=== PATIENT | male | born 1940 | race Caucasian/White ===

== ENCOUNTER 2025-05-29 20:32 | Emergency (ER) | payer MEDICARE, SELFPAY ==
[2025-05-29 20:34] VITALS: BP 158/78; PULSE 98; RESP 15; TEMP 36.7; O2SAT 98
--- NOTE | 2025-05-29 21:59 | EX.ED.DYSGE1 ---
HPI History of Present Illness Chief Complaint: Constipation Detail of Chief Complaint: No bowel movement for 3 to 4 days Informant: patient and family Onset/Context/Timing Onset: Days Context: Sudden Onset Timing: Continuous Quality: Unable to move his bowels for the past 3 to 4 days Location: Complains of rectal pain Current Severity: Mild Maximum Severity: Moderate Worsened by: When he attempts to push out the stool Relieved by: Nothing Associated Symptoms Associated Symptoms: No other symptoms Narrative Narrative: Patient is an 85-year-old male. He presents with rectal pain and unable to have a bowel movement for the past 3 to 4 days. He has no history of partial or small bowel obstruction. He is status post cholecystectomy. He is still passing gas. He denies urologic symptoms. He denies fever or chills. He denies weight loss. He denies night sweats. He does not feel bloated. He has had no nausea or vomiting. Prior similar symptoms: Yes Recent Illness/Hospitalization: No PFSH PFSH Medical History (Updated 05/29/25 @ 22:[address] Buddy Armijo MD) Hyperlipemia BPH (benign prostatic hyperplasia) Allergy/AdvReac Type Severity Reaction Status Date / Time Penicillins Allergy Severe UNKNOWN Verified 05/29/25 20:35 Surgical History (Updated 05/29/25 @ 22:13 by Karen Travis) Hx of cholecystectomy History of open heart surgery Social History (Updated 05/29/25 @ 22:[address] Buddy Armijo MD) Smoking Status: Never smoker substance use type: does not use ROS ROS ED Constitutional Constitutional ED: Denies chills, fever(s), subjective, sweats or weight loss Cardiovascular Cardiovascular: Denies chest pain or palpitations Respiratory/Chest Respiratory/Chest: Denies cough or dyspnea Gastrointestinal Gastrointestinal: Reports constipation and other Details: Rectal pain ; Denies abdominal pain, diarrhea, melena, nausea or vomiting Genitourinary Genitourinary ED: Denies dysuria, hematuria or urinary frequency Musculoskeletal Musculoskeletal: Denies arthralgias or myalgias Integumentary Denies rash Neurologic Neurologic: Reports weakness; Denies paresthesias Psychiatric Psychiatric: Denies anxiety or depression Hematologic/Lymphatic Hematologic/Lymphatic: Reports systems reviewed and no addt'l complaints, except as documented EXAM Physical Exam Const Vital Signs: 05/29/25 20:34 Temperature 98.1 F Temperature Source Oral Pulse Rate 98 Respiratory Rate 15 Blood Pressure 158/78 H Blood Pressure Mean 104 Pulse Ox 98 Positive well nourished and well developed General Appearance ED: well developed and NAD HEENT Reports moist mucous membranes HEENT Narrative: Head is atraumatic and normocephalic. Ears normal. Eyes PERRL and EOMs intact bilaterally Neck no lymphadenopathy, supple and no JVD Resp normal respiratory effort and clear to auscultation bilaterally Cardio regular rate, regular rhythm, S1 normal heart sound, S2 normal heart sound and no murmurs GI non-tender and no masses; Negative for non-distended or hepatosplenomegaly GI Narrative: No fissures, fistulas or hemorrhoids on rectal exam. Patient has a fecal impaction. Attempt to digitally disimpact was unsuccessful because the stool is very soft. Auscultation: hypoactive bowel sounds Palpation: soft Extremity normal to inspection Neuro oriented x3 and CN's II-XII intact bilaterally Sensorium / Orientation: alert Psych Mood & Affect: depressed Skin no rashes or lesions noted, no wounds and No skin turgor normal General Skin Exam: Negative for jaundice MDM MDM MDM Narrative Medical decision making narrative: Since digital disimpaction was unsuccessful. Soapsuds enema was ordered. Nurse informed he cannot hold the soapsuds enema. After discussion with the other physician was on-call recommended fleets enema. Fleets enema was ordered. Awaiting to see if patient has results. Treatment and Re-Evaluation :: Patient had minimal results after fleets enema. Will discharge to home with instructions to help evacuate the stool from his rectum. Discharge Plan Triage Chief Complaint: Constipation ED Provider: Buddy Armijo Dx/Rx/DC Orders Clinical Impression: Fecal impaction of rectum, Elevated blood pressure reading Instructions: ED Constipation (Adult) Primary Care Provider: Sid Swanson Referrals: Sid Swanson MD [Primary Care Provider] - 1-2 Days if not improving Activity Restrictions/Additional Instructions: 1. In the morning drink 10 ounces of mag citrate. 2. 4 hours after drinking the mag citrate 1 capful of MiraLAX and a full glass of beverage of choice. 3. Repeat 1 capful of MiraLAX every 1-2 hours until you start to have results. Once you have results discontinue the MiraLAX Print Language: Micronesian Disposition Disposition: Home, Self Care
[2025-05-29 22:33] VITALS: BP 130/74; PULSE 75; RESP 18; TEMP 36.6; O2SAT 99
== END 2025-05-29 22:42 | disposition home or self-care (01) ==
PROVIDERS: Emergency Provider Emergency Medicine; PCP Internal Medicine; Visit Provider Emergency Medicine
DX: K56.41 Fecal impaction (principal); R03.0 Elevated blood-pressure reading, without diagnosis of hypertension
CPT/HCPCS: 99284

== ENCOUNTER 2025-06-03 19:29 | Emergency (ER) | payer MEDICARE, SELFPAY ==
[2025-06-03 19:31] VITALS: BP 148/68; PULSE 64; RESP 18; TEMP 36.3; O2SAT 98
[2025-06-03 19:50] VITALS: BMI 24.6
--- NOTE | 2025-06-03 20:19 | RAD_ITS ---
PROCEDURE: CHEST 1 VIEW (PORTABLE) 06/03/2025 REASON FOR EXAM: GENERALIZED WEAKNESS TECHNIQUE: Frontal view of the chest. COMPARISON: None. FINDINGS: Hardware: Intact sternal wires. EKG wires project over the chest. Heart: Heart size within normal limits. Lungs: Clear and expanded. Bones: No aggressive process identified. Other: RAD/Chest 1 View (Portable) IMPRESSION: No acute process identified. Reading Location[facility]
--- NOTE | 2025-06-03 20:20 | EKG12_ITS ---
Test Reason : WEAKNESS Blood Pressure : */* mmHG Vent. Rate : 51 BPM Atrial Rate : * BPM P-R Int : * ms QRS Dur : 88 ms QT Int : 452 ms P-R-T Axes : * -29 38 degrees QTcB Int : 416 ms Atrial fibrillation with slow ventricular response Septal infarct , age undetermined Abnormal ECG Confirmed by CARLOS RAI, BRAYAN ([id number]), editor sound RONY MACHADO ([id number]) on 06/05/2025 1:04:29 PM Referred By: Confirmed By: BRAYAN GONZALEZ MD
[2025-06-03] MEDS: 0.9% Normal Saline (500mL Bag) 500 ML 1000 ML IV (20:30)
[2025-06-03 20:32] VITALS: BP 161/68; PULSE 54; RESP 16; TEMP 35.5; O2SAT 99
--- NOTE | 2025-06-03 20:33 | EX.ED.DYSGE1 ---
HPI History of Present Illness Chief Complaint: Weakness Narrative Narrative: 85-year-old male past medical history of possible Parkinson's disease, previous hyponatremia presents with generalized weakness which caused him to become weak and collapsed today. He denies loss of consciousness. He was brought in by his son who helps relay history that he was seen in the emergency department on Thursday for fecal impaction. They tried magnesium citrate the following day and he had copious amounts of stool with bowel movements. While that has improved, today he felt very weak, almost dehydrated, which caused him to collapse and lowered himself to the ground. While he may have fallen, he did not sustain any injuries. He did not hit his head or have loss of consciousness. No prodromal symptoms. States he just feels generally weak. No recent fevers or chills, no nausea or vomiting, no cough or shortness of breath, no dysuria or hematuria. [facility] Medical History Hyperlipemia BPH (benign prostatic hyperplasia) Home Medications ?Medication ?Instructions ?Recorded ?Last Taken ?Type apixaban 5 mg tablet (Eliquis) 5 mg PO BID 06/03/25 Unknown History aspirin 81 mg tablet,delayed 81 mg PO DAILY 06/03/25 Unknown History release (Adult Aspirin Regimen) atorvastatin 40 mg tablet 40 mg PO DAILY 06/03/25 Unknown History finasteride 5 mg tablet 5 mg PO DAILY 06/03/25 Unknown History linaclotide 145 mcg capsule 145 mcg PO DAILY 06/03/25 Unknown History (Linzess) pantoprazole 40 mg tablet,delayed 40 mg PO DAILY 06/03/25 Unknown History release terazosin 10 mg capsule 10 mg PO DAILY 06/03/25 Unknown History Allergy/AdvReac Type Severity Reaction Status Date / Time Penicillins Allergy Severe UNKNOWN Verified 06/03/25 19:31 Surgical History Hx of cholecystectomy History of open heart surgery Social History Smoking Status: Never smoker substance use type: does not use ROS ROS ED ROS Narrative Review of systems positive for generalized weakness. No fevers or chills, no cough, no dysuria no dysuria or hematuria, no syncope. No exacerbating or alleviating factors. EXAM Physical Exam Narrative Exam Narrative: Afebrile. Vital signs noted. HEENT: Normocephalic. Atraumatic. PERRL, EOMI. Neck soft and supple. Slightly tacky mucous membranes. Cardiovascular: Regular rate and rhythm. No murmurs, rubs, or gallops appreciated. Respiratory: No tachypnea. Lungs clear to auscultation bilaterally. Gastrointestinal: Abdomen soft, nontender, with normoactive bowel sounds. No rebound or guarding. Neurological: Awake. Alert. Nonfocal, nonlateralizing. Musculoskeletal: No pedal edema. Full range of motion extremities. Const Vital Signs: 06/03/25 19:31 06/03/25 19:49 06/03/25 20:32 Temperature 97.3 F L 95.9 F L Temperature Source Temporal Temporal Pulse Rate 64 54 L Respiratory Rate 18 16 Respiratory Effort Normal Non-Labored Respiratory Pattern Normal Blood Pressure 148/68 H 161/68 H Blood Pressure Mean 94 99 Pulse Ox 98 99 Oxygen Delivery Method Room Air MDM MDM MDM Narrative Medical decision making narrative: The differential diagnosis includes but not limited to dehydration/other electrolyte abnormality including hyponatremia versus urinary tract infection or infectious cause including pneumonia. However history and physical does not support pneumonia because is not having fever or cough or shortness of breath. His son was concerned about him starting a parkinsonian medication such as levo carbidopa that was supposed to be written for him this weekend. I discussed with him that the neurologist or physician working up that diagnosis should be the 1 to write the prescription for that. It could be related to his generalized weakness as well. EKG was obtained and interpreted by myself independently as atrial fibrillation with slow ventricular response at 51 bpm. I reviewed his laboratory work and he has normal white count of 5.5 with hemoglobin stable at 11.4, platelet count 210. Electrolyte panel is noted to have BUN of 22 with creatinine 1.18 with glucose appropriately elevated at 116 and normal anion gap of 13. Urinalysis negative for infection with 0-5 WBCs and 0 bacteria. I do not feel he needs antibiotics. He had negative ketones so no evidence of dehydration. Chest x-ray interpreted by myself independently shows no pneumonia or pneumothorax. I reviewed the radiology report which confirms my independent interpretation and states there is no acute process identified. Upon repeat examination, patient is resting comfortably. He is getting ready to stand up to urinate. I discussed the possibility of observation for placement in rehab/detention facility, but patient and his son declined. I feel he can be discharged to follow-up and possibly start the Parkinson's medication as his son had previously discussed. Return instructions to the emergency department were reviewed. Disposition is discharged home in stable condition. History & Record Review Discussion w/independent historian: Patient and Family (Son) Additional record(s) reviewed:: Prior ED visit (Seen for elevated blood pressure reading. Noncontributory to current chief complaint.) Lab Data Attestation: I reviewed the patient's lab results. Labs: Laboratory Results - last 24 hr 06/03/25 06/03/25 19:38 20:25 WBC 5.5 RBC 3.88 L Hgb 11.4 L Hct 34.0 L MCV 87.6 MCH 29.4 MCHC 33.5 RDW Std Deviation 42.5 RDW Coeff of Ernesto 13.2 Plt Count 210 MPV 9.8 Immature Gran % (Auto) 0.400 Neut % (Auto) 53.3 Lymph % (Auto) 32.5 Rains % (Auto) 11.5 H Eos % (Auto) 1.8 Baso % (Auto) 0.5 Absolute Neuts (auto) 2.9 Absolute Lymphs (auto) 1.79 Nucleated RBC % 0 Sodium 134 Potassium 4.7 Chloride 99 Carbon Dioxide 22.3 Anion Gap 13 BUN 22 H Creatinine 1.18 Estim Creat Clear Calc 41.23 L Est GFR (MDRD) Non-Af 60 BUN/Creatinine Ratio 18.5 Glucose 116 H Calcium 9.5 Urine Color Straw Urine Clarity Clear Urine pH 7.0 Ur Specific [place] 1.010 Urine Protein 15 H Urine Glucose (UA) Normal Urine Ketones Negative Urine Occult Blood 150 H Urine Nitrite Negative Urine Bilirubin Negative Urine Urobilinogen Normal Ur Leukocyte Esterase Negative Urine RBC 0-5 SEEN Urine WBC 0-5 SEEN Ur Squamous Epith Cells 0-5 SEEN Urine Bacteria 0 SEEN Urine Mucus 0 SEEN Radiography Diagnostic Testing: Clinical Impression(s) from Imaging Studies Chest X-Ray 06/03/25 20:19 IMPRESSION: No acute process identified. Reading [facility] Discharge Plan Triage Chief Complaint: Weakness ED Provider: Clinton Blanco Dx/Rx/DC Orders Clinical Impression: Fall, Generalized weakness Instructions: ED Fall with Uncertain Cause, ED Weakness Uncertain Cause Prescriptions: No Action atorvastatin 40 mg tablet 40 mg PO DAILY finasteride 5 mg tablet 5 mg PO DAILY Linzess 145 mcg capsule 145 mcg PO DAILY Eliquis 5 mg tablet 5 mg PO BID pantoprazole 40 mg tablet,delayed release (DR/EC) 40 mg PO DAILY terazosin 10 mg capsule 10 mg PO DAILY aspirin [Adult Aspirin Regimen] 81 mg tablet,delayed release (DR/EC) 81 mg PO DAILY Primary Care Provider: Romeo Pollock Referrals: Sid Swanson MD [Non-Staff] - As soon as possible Activity Restrictions/Additional Instructions: Follow-up with Dr. Pollock as soon as possible. You may need to be started on the medication for Parkinson's disease. Return with new or worsening symptoms. Print Language: Togolese Disposition Disposition: Home, Self Care
[2025-06-03 20:34] LABS: Mucous, Urine 0 SEEN /hpf (<or=2+)
--- NOTE | 2025-06-03 20:39 | PCA ---
NO OLD EKG
[2025-06-03 20:40] LABS: Hematocrit 34.0 % (40-54); Hemoglobin 11.4 g/dL (13.0-16.5); Immature Granulocytes Count 0.020 X10^3/uL (0.0-0.0); Mean Corp Hgb Conc 33.5 g/dL (32-36); Mean Corpuscular Volume 87.6 fL (80-94); Mean Platelet Vol. 9.8 fl (6.2-12.0); NRBC Flagged by Analyzer 0 % (0-5); Platelet Count 210 K/mm3 (150-450); RBC Distribution Width CV 13.2 % (11.6-14.6); RBC Distribution Width SD 42.5 fl (35.1-43.9); Red Blood Count 3.88 M/mm3 (4.6-6.2); White Blood Count 5.5 K/mm3 (4.4-11.0)
--- OUTSIDE RECORDS SUMMARY | 2025-06-03 20:42 | XMS RPT_ITS | CCD ---
Author Organization [facility] Care Team Providers Care Solderer Furnace Name Role Phone ELVIE HASKINS Unavailable Unavailable DUMONT, HÉCTOR A Unavailable Unavailable ELVIE HASKINS Unavailable Unavailable ELVIE HASKINS Unavailable Unavailable Unavailable Primary Care Provider Sue Armijo MD, Dr. Goodwin Emergency Provider Dr. Jerilyn Swanson MD Primary Care Provider [phone] JERILYN SWANSON MD Consulting Unavailable KATELYNN LEMONS MD Admitting Unavailable KATELYNN LEMONS MD Primary Care Unavailable KATELYNN LEMONS MD Attending Unavailable PROVIDER, UNKNOWN Consulting Unavailable PROVIDER, UNKNOWN Consulting Unavailable PROVIDER, UNKNOWN Consulting Unavailable JERILYN SWANSON MD Consulting Unavailable January CERTIFIED MEDICAL CODER Primary Care Unavailable January CERTIFIED MEDICAL CODER Admitting Unavailable January CERTIFIED MEDICAL CODER Attending Unavailable PROVIDER, UNKNOWN Consulting Unavailable PROVIDER, UNKNOWN Consulting Unavailable PROVIDER, UNKNOWN Consulting Unavailable JERILYN SWANSON MD Consulting Unavailable JERILYN SWANSON MD Admitting Unavailable JERILYN SWANSON MD Attending Unavailable JERILYN SWANSON MD Primary Care Unavailable PROVIDER, UNKNOWN Consulting Unavailable PROVIDER, UNKNOWN Consulting Unavailable PROVIDER, UNKNOWN Consulting Unavailable JERILYN SWANSON MD Consulting Unavailable JERILYN SWANSON MD Primary Care Unavailable JERILYN SWANSON MD Admitting Unavailable JERILYN SWANSON MD Attending Unavailable PROVIDER, UNKNOWN Consulting Unavailable PROVIDER, UNKNOWN Consulting Unavailable PROVIDER, UNKNOWN Consulting Unavailable JERILYN SWANSON MD Consulting Unavailable JERILYN SWANSON MD Primary Care Unavailable JERILYN SWANSON MD Admitting Unavailable JERILYN SWANSON MD Attending Unavailable PROVIDER, UNKNOWN Consulting Unavailable PROVIDER, UNKNOWN Consulting Unavailable PROVIDER, UNKNOWN Consulting Unavailable JERILYN SWANSON MD Consulting Unavailable JERILYN SWANSON MD Primary Care Unavailable JERILYN SWANSON MD Admitting Unavailable JERILYN SWANSON MD Referring Unavailable JERILYN SWANSON MD Attending Unavailable PROVIDER, UNKNOWN Consulting Unavailable PROVIDER, UNKNOWN Consulting Unavailable PROVIDER, UNKNOWN Consulting Unavailable JERILYN SWANSON MD Consulting Unavailable LLOYD TOLEDO MD Primary Care Unavailable LLOYD TOLEDO MD Admitting Unavailable JERILYN SWANSON MD Referring Unavailable LLOYD TOLEDO MD Attending Unavailable PROVIDER, UNKNOWN Consulting Unavailable PROVIDER, UNKNOWN Consulting Unavailable PROVIDER, UNKNOWN Consulting Unavailable MARY NULL Consulting Unavailable EDYTA ROCA Attending Unavailable EDYTA ROCA Admitting Unavailable EDYTA ROCA Primary Care Unavailable MARY NULL Referring Unavailable PROVIDER, UNKNOWN Consulting Unavailable LINUS, JANUARY CERTIFIED MEDICAL CODER Referring Unavailable LINUSJanuary CERTIFIED MEDICAL CODER Consulting Unavailable TREVOR SAMANIEGO JR Primary Care Unavailable TREVOR SAMANIEGO JR Admitting Unavailable TREVOR SAMANIEGO JR Attending Unavailable PROVIDER, UNKNOWN Consulting Unavailable PROVIDER, UNKNOWN Consulting Unavailable JERILYN SWANSON MD Consulting Unavailable JERILYN SWANSON MD Referring Unavailable TREVOR SAMANIEGO JR Primary Care Unavailable TREVOR SAMANIEGO JR Admitting Unavailable TREVOR SAMANIEGO JR Attending Unavailable PROVIDER, UNKNOWN Consulting Unavailable PROVIDER, UNKNOWN Consulting Unavailable PROVIDER, UNKNOWN Consulting Unavailable Aleksander Buddy Attending Unavailable Jerilyn Swanson Primary Care Unavailable Allergies Allergy Classification Reported Allergen(s) Allergy Type Date of Onset Reaction(s) Facility (1 source) Amoxicillin Drug Allergy 7 [facility] Work Phone: (1 source) Penicillins Propensity to adverse reactions 7 [facility] (1 source) Penicillins Allergy to substance 5 UNKNOWN [facility] (1 source) Amoxicillin Drug Allergy [facility] Repository (1 source) Penicillins Drug allergy (disorder) [facility] Repository (1 source) Penicillins Drug allergy (disorder) 5 [facility] Repository Medications Current Medications Medication Drug Class(es) Dates Sig (Normalized) Sig (Original) aspirin 81 mg delayed release oral tablet (1 source) Platelet Aggregation Inhibitor, Nonsteroidal Anti-inflammatory Drug Start: 09-21-2007 aspirin(ADULT LOW DOSE ASPIRIN 81 MG TAB, DELAYED RELEASE) Take one(1) tablet daily. 0 09/21/2007 Active clopidogrel 75 mg oral tablet (1 source) P2Y12 Platelet Inhibitor Start: 09-21-2007 clopidogrel bisulfate(PLAVIX 75 MG TAB) Take one(1) tablet daily. 0 09/21/2007 Active docusate calcium 240 mg oral capsule (1 source) Start: 08-26-2010 take 1 capsule by mouth at bedtime docusate calcium 240 mg ORAL capsule 1 capsule po at bedtime 0 08/26/2010 Active finasteride 5 mg oral tablet (1 source) 5-alpha Reductase Inhibitor Start: 09-29-2023 finasteride (PROSCAR) 5 mg tablet Indications: BPH with obstruction/lower urinary tract symptoms take 1 tablet daily 90 tablet 3 09/29/2023 Active metoprolol tartrate 50 mg oral tablet (1 source) beta-Adrenergic Sly Start: 08-26-2010 metoprolol tartrate 50 mg ORAL tablet 1 tablet two timws daily po 0 08/26/2010 Active rosuvastatin calcium 40 mg oral tablet (1 source) HMG-CoA Reductase Inhibitor Start: 08-26-2010 take 1 tablet by mouth once daily rosuvastatin (CRESTOR) 40 mg ORAL tablet 1 tablet daily 0 08/26/2010 Active terazosin 10 mg oral capsule (1 source) alpha-Adrenergic Sly Start: 10-06-2012 take 1 capsule by mouth once daily Terazosin HCl (HYTRIN) 10 mg capsule Take 1 capsule by mouth once daily. 90 capsule 3 10/06/2012 Active Problems Active Problems Problem Classification Problem Date Documented Date Episodic/Chronic Acute and unspecified renal failure (1 source) Acute kidney failure, unspecified; Translations: [Acute kidney failure, unspecified] Onset: 03-25-2025 Episodic Cardiac dysrhythmias (1 source) Unspecified atrial fibrillation; Translations: [Unspecified atrial fibrillation] Onset: 06-29-2024 Chronic Chronic kidney disease (1 source) Chronic kidney disease; Translations: [Chronic kidney disease, stage 3a] Onset: 12-21-2024 Congestive heart failure; nonhypertensive (1 source) Unspecified diastolic (congestive) heart failure; Translations: [Unspecified diastolic (congestive) heart failure] Onset: 03-25-2025 Chronic Coronary atherosclerosis and other heart disease (1 source) 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; Translations: [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] Onset: 06-29-2024 Chronic Diabetes mellitus with complications (1 source) Type 2 diabetes mellitus with diabetic chronic kidney disease; Translations: [Type 2 diabetes mellitus with diabetic chronic kidney disease] Onset: 12-21-2024 Chronic Disorders of lipid metabolism (1 source) Hyperlipidemia, unspecified; Translations: [Hyperlipidemia, unspecified] Onset: 12-21-2024 Chronic Essential hypertension (1 source) Essential (primary) hypertension; Translations: [Essential (primary) hypertension] Onset: 12-21-2024 Chronic Fluid and electrolyte disorders (2 sources) Hypo-osmolality and hyponatremia; Translations: [Hypo-osmolality and hyponatremia] Onset: 06-29-2024 Episodic Hyperplasia of prostate (2 sources) Benign prostatic hypertrophy with outflow obstruction; Translations: [Benign prostatic hyperplasia with lower urinary tract symptoms] Onset: 09-21-2007 02-07-2025 Chronic Intestinal obstruction without hernia (1 source) Fecal impaction; Translations: [Fecal impaction of rectum] 05-29-2025 Episodic Other circulatory disease (1 source) Elevated blood pressure; Translations: [Elevated blood-pressure reading, without diagnosis of hypertension] 05-29-2025 Episodic Other diseases of bladder and urethra (1 source) Bladder neck obstruction; Translations: [Bladder-neck obstruction] Onset: 09-21-2007 02-07-2025 Chronic Past or Other Problems Problem Classification Problem Date Documented Da te Episodic/Chronic Allergic reactions (1 source) Allergy status to penicillin; Translations: [Allergy status to penicillin] Onset: 06-29-2024 Episodic Coronary atherosclerosis and other heart disease (2 sources) Presence of aortocoronary bypass graft; Translations: [Presence of coronary angioplasty implant and graft] Onset: 06-29-2024 Episodic Malaise and fatigue (3 sources) Weakness; Translations: [Weakness] Onset: 06-29-2024 Episodic Other aftercare (1 source) 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; Translations: [senior care (current) use of anticoagulants] Onset: 06-29-2024 Episodic Other lower respiratory disease (1 source) Shortness of breath; Translations: [Shortness of breath] Onset: 06-29-2024 Episodic Other screening for suspected conditions (not mental disorders or infectious disease) (1 source) Raised prostate specific antigen; Translations: [Elevated prostate specific antigen [PSA]] Onset: 09-21-2007 02-07-2025 Episodic Residual codes; unclassified (1 source) Do not resuscitate; Translations: [Do not resuscitate] Onset: 06-29-2024 Episodic Results Test Name Value Interpretation Reference Range Facility ED MED ADMINISTRATION DETAIL on 05-29-2025 ED MED ADMINISTRATION DETAIL [employer] - STEPHANI ELIAS : 1940, , Medication Administration Record [address] [address] [id number] 05/29/2025 Patient: STEPHANI ELIAS Sex: Male : 1940 Age: 85y Medication Ordered Medication Administration Date/Time 1 of 1 Normal [facility] ED NURSES CLINICAL NOTEon ED NURSES CLINICAL NOTE Nurse Narrative - STEPHANI ELIAS, : 1940, , Nurse Clinical Narrative [address] [address] [id number] 05/29/2025 19:38:00 Patient: STEPHANI ELIAS Sex: Male : 1940 Age: 85y Disposition: Left W/O Being Seen Disposition Decision Time: 19:55 05/29/2025 Departure Time: 19:55 05/29/2025 DISPOSITION / DISCHARGE Departure time: 19:55 05/29/2025. Condition at departure: unchanged and stable. The patient left the Emergency Department before triage and without being seen by a physician. The patient appears to be alert. The patient notified staff prior to leaving the department. The patient left the Emergency Department in a wheelchair. -- 20:55 05/29/25 EDT Clinton Grimes R.N. (Electronically signed by Elisabeth Alvarez R.N. 05/29/25 23:32:22 EDT) Generated by [facility] 1 of 1 Normal [facility] ED ORDER SHEET (CPOE ONLY)on 05-29-2025 ED ORDER SHEET (CPOE ONLY) Order Sheet - STEPHANI ELIAS, : 1940, , Order Sheet [address] [address] [id number] 05/29/2025 Patient: STEPHANI ELIAS Sex: Male : 1940 Age: 85y MEDICATION/IV/DRIP/FLU ID ORDERS Order Description Priority Entered Acknowledged Completed LAB ORDERS Order Description Priority Entered Acknowledged Collected Completed DIAGNOSTIC STUDY ORDERS Order Description Priority Entered Acknowledged Completed STAFF ORDERS Order Description Priority Entered Acknowledged Collected Completed 1 of 1 Normal [facility] ED SUPER BILL 05-29-2025 ED [facility] - STEPHANI ELIAS, : 1940, , [address] [address] [id number] 05/29/2025 Patient: STEPHANI ELIAS Sex: Male : 1940 Age: 85y Item Professional Category Description Facility Code Code Quantity Fee Total Grand Total $0.00 1 of 1 [facility] ED VISIT SUMMARYon ED VISIT SUMMARY Visit Overview - STEPHANI ELIAS : 1940, , Visit [address] [address] [id number] 05/29/2025 Patient: STEPHANI ELIAS Sex: Male : 1940 Age: 85y 05/29/2025 11:32 PM EDT ED Arrival:19:38 05/29/2025 EDT Status: Recent Travel: Language:eng Adv Directive: Isolation Status: Ethnicity:N Fall Risk: Infectious Disease Exposure: Measurements: Self-Harm Status: Sepsis Screen: Chief Complaint: ALLERGIES HOME MEDICATIONS PAST MEDICAL HISTORY / PROBLEMS PAST SURGICAL HISTORY SOCIAL HISTORY ED COURSE MEDICATIONS GIVEN IN EMERGENCY DEPARTMENT IV SITE INFORMATION 1 of 2 Visit Overview - STEPHANI ELIAS : 1940, , INTAKE OUTPUT REASSESMENT (most recent) VITAL SIGNS PROCEDURES NURSING INTERVENTIONS LABS / STUDIES CLINICAL IMPRESSION 2 of 2 Normal [facility] ED VITALS FLOW SHEETon 05-29 ED VITALS FLOW SHEET Vitals - STEPHANI ELIAS : 1940, , Vital Sign Flow Sheet [address] [place] [address] [id number] 05/29/2025 Patient: STEPHANI ELIAS Sex: Male : 1940 Age: 85y 1 of 1 Normal [facility] Emergency Department Summary on 05-29-2025 Emergency Department Summary [facility] Medical Records Department [address] [facility] [address] Emergency Department Summary 05/29/25 MR#: [id number] Acct: [id number] Name: STEPHANI ELIAS Rep #: [id number] : 1940 85 From: Buddy Armijo MD PCP: Dr. Jerilyn Swanson MD Status:REG ER Location: ED HPI History of Present Illness Chief Complaint: Constipation Detail of Chief Complaint: No bowel movement for 3 to 4 days Informant: patient and family Onset/Context/Timing Onset: Days Context: Sudden Onset Timing: Continuous Quality: Unable to move his bowels for the past 3 to 4 days Location: Complains of rectal pain Current Severity: Mild Maximum Severity: Moderate Worsened by: When he attempts to push out the stool Relieved by: Nothing Associated Symptoms Associated Symptoms: No other symptoms Narrative Narrative: Patient is an 85-year-old male. He presents with rectal pain and unable to have a bowel movement for the past 3 to 4 days. He has no history of partial or small bowel obstruction. He is status post cholecystectomy. He is still passing gas. He denies urologic symptoms. He denies fever or chills. He denies weight loss. He denies night sweats. He does not feel bloated. He has had no nausea or vomiting. Prior similar symptoms: Yes Recent Illness/Hospitalizatio n: No PFSH COUNTS INCLUDE 234 BEDS AT THE [facility] Medical History (Updated 05/29/25 @ 22:[address] Buddy Armijo MD) Hyperlipemia BPH (benign prostatic hyperplasia) Allergy/AdvReac Type Severity Reaction Status Date / Time Penicillins Allergy Severe UNKNOWN Verified 05/29/25 20:35 Surgical History (Updated 05/29/25 @ 22:13 by Karen Travis) Hx of cholecystectomy History of open heart surgery Social History (Updated 05/29/25 @ 22:[address] Buddy Armijo MD) Smoking Status: Never smoker substance use type: does not use ROS ROS ED Constitutional Constitutional ED: Denies chills, fever(s), subjective, sweats or weight loss Cardiovascular Cardiovascular: Denies chest pain or palpitations Respiratory/Chest Respiratory/Chest: Denies cough or dyspnea Gastrointestinal Gastrointestinal: Reports constipation and other Details: Rectal pain ; Denies abdominal pain, diarrhea, melena, nausea or vomiting Genitourinary Genitourinary ED: Denies dysuria, hematuria or urinary frequency Musculoskeletal Musculoskeletal: Denies arthralgias or myalgias Integumentary Denies rash Neurologic Neurologic: Reports weakness; Denies paresthesias Psychiatric Psychiatric: Denies anxiety or depression Hematologic/Lymphatic Hematologic/Lymphatic: Reports systems reviewed and no addt'l complaints, except as documented EXAM Physical Exam Const Vital Signs: 05/29/25 20:34 Temperature 98.1 F Temperature Source Oral Pulse Rate 98 Respiratory Rate 15 Blood Pressure 158/78 H Blood Pressure Mean 104 Pulse Ox 98 Positive well nourished and well developed General Appearance ED: well developed and NAD HEENT Reports moist mucous membranes HEENT Narrative: Head is atraumatic and normocephalic. Ears normal. Eyes PERRL and EOMs intact bilaterally Neck no lymphadenopathy, supple and no JVD Resp normal respiratory effort and clear to auscultation bilaterally Cardio regular rate, regular rhythm, S1 normal heart sound, S2 normal heart sound and no murmurs GI non-tender and no masses; Negative for non-distended or hepatosplenomegaly GI Narrative: No fissures, fistulas or hemorrhoids on rectal exam. Patient has a fecal impaction. Attempt to digitally disimpact was unsuccessful because the stool is very soft. Auscultation: hypoactive bowel sounds Palpation: soft Extremity normal to inspection Neuro oriented x3 and CN's II-XII intact bilaterally Sensorium / Orientation: alert Psych Mood Affect: depressed Skin no rashes or lesions noted, no wounds and No skin turgor normal General Skin Exam: Negative for jaundice MDM MDM MDM Narrative Medical decision making narrative: Since digital disimpaction was unsuccessful. Soapsuds enema was ordered. Nurse informed he cannot hold the soapsuds enema. After discussion with the other physician was on-call recommended fleets enema. Fleets enema was ordered. Awaiting to see if patient has results. Treatment and Re-Evaluation :: Patient had minimal results after fleets enema. Will discharge to home with instructions to help evacuate the stool from his rectum. Discharge Plan Triage Chief Complaint: Constipation ED Provider: Buddy Armijo Dx/Rx/DC Orders Clinical Impression: Fecal impaction of rectum, Elevated blood pressure reading Instructions: ED Constipation (Adult) Primary Care Provider: Jerilyn Swanson Referrals: Jerilyn Swanson MD [Primary Care Provider] - 1-2 Days if not improving Activity Restrictions/Additiona l Instructions: 1. In (more content not included)... 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 Medication Administration Record [address] [address] [id number] 04/21/2025 Patient: STEPHANI ELIAS Sex: Male : 1940 Age: 85y MEASUREMENTS: Wt: 74.8 kg, Ht/Layo: 67.0 in, BMI: 25.84 ALLERGIES: Amoxicillin, Penicillins Medication Ordered Medication Administration Date/Time of Normal [facility] ED NURSES CLINICAL NOTEon ED NURSES CLINICAL NOTE Nurse Narrative Nurse Clinical Narrative [address] [address] [id number] 04/21/2025 11:51:00 Patient: STEPHANI ELIAS Sex: Male : 1940 Age: 85y Disposition: Discharge to Home Disposition Decision Time: 14:19 04/21/2025 Departure Time: 14:22 04/21/2025 TRIAGE Arrived by EMS. Historian: (patient). Primary physician (Kiki). Triage time: 11:52 04/21/2025. Acuity: LEVEL 2. Chief Complaint: SINGLE SYNCOPAL EPISODE. Unknown when patient was last known well. Witnessed: Event was witnessed. The patient has had a headache. ( took 1 SL nitro prior to syncopal episode). Patient is on anticoagulation (blood thinner) therapy: includes eliquis. -- 12:04/21/25 EDT Javan Stewart R.N. 12:04/21/25. BP: 120/65 MAP: 83. HR: 60. RR: 16. O2 saturation: 96% Temperature: 97.4 F. Pain level now 0/10. -- 12:04/21/25 EDT Javan Stewart R.N. 12:04/21/25. SEPSIS SCREEN: NEGATIVE. SIRS criteria negative. No possible sources of infection. -- 12:04/21/25 RAJNIT Javan Stewart R.N. Measurements: 12:04/21/25 Wt: 74.8 kg, Ht/Layo: 67.0 in, BMI: 25.84 -- 12:04/21/25 EDT Javan Stewart R.N. Medications: aspirin 81 mg tablet: 81 mg once a day . -- 12:00 04/21/25 RAJNIT Javan Stewart R.N. 1 of 4 Nurse Narrative atorvastatin 40 mg tablet: 40 mg once a day . -- 12:04/21/25 RAJNIT Javan Stewart R.N. finasteride 5 mg tablet: 5 mg once a day . -- 12:04/21/25 RAJINT Javan Stewart R.N. lisinopriL 5 mg tablet: 5 mg once a day . -- 12:04/21/25 RAJNIT Javan Stewart R.N. pantoprazole 40 mg tablet,delayed release: 40 mg once a day . -- 12:04/21/25 RAJNIT Javan Stewart R.N. terazosin 10 mg capsule: 10 mg once a day . -- 12:04/21/25 RAJNIT Javan Stewart R.N. Stool Softener 100 mg capsule: 100 mg once a day as needed for constipation. -- 12:04/21/25 RAJNIT Javan Stewart R.N. Eliquis 5 mg tablet: 1 tablet twice a day. -- 12:03 04/21/25 IGNACIO Stewart R.N. Allergies: Penicillins -- 11:57 04/21/25 IGNACIO Stewart R.N. Amoxicillin -- 11:57 04/21/25 IGNACIO Stewart R.N. Problems: GERD -- 11:58 04/21/25 IGNACIO Stewart R.N. Hypercholesterolemia -- 11:58 04/21/25 IGNACIO Stewart R.N. Hypertension -- 11:58 04/21/25 IGNACIO Stewart R.N. Parkinson's Disease -- 11:04/21/25 IGNACIO Stewart R.N. Atrial Fibrillation -- 11:04/21/25 IGNACIO Stewart R.N. Prostate Disease -- 11:58 04/21/25 IGNACIO Stewart R.N. Surgeries: Cholecystectomy -- 11:04/21/25 IGNACIO Stewart R.N. Cataract Surgery -- 11:04/21/25 IGNACIO Stewart R.N. Coronary Artery Bypass Graft. (2 separate surgeries.) -- 11:04/21/25 IGNACIO Stewart R.N. History 11:52 04/21/25. SOCIAL HX: Never smoker. No alcohol use or drug use. The patient has not traveled outside the [place] Infectious disease exposure: No infectious disease exposure. ABUSE ASSESSMENT: The patient answered yes to the question(s) Do you feel safe in your home? and no to the question(s) Are you afraid to go home?. SELF HARM ASSESSMENT: Self harm assessment was performed. The patient answered no to the 2 of 4 Nurse Narrative question(s) Have you recently felt down, depressed, or hopeless? and Do you have thoughts of harming or killing yourself?. FALL RISK ASSESSMENT: Fall risk assessment completed. Fall interventions initiated. Side rails up x2. Bed in low position. Brakes on. Patient identified as a fall risk by ID band. Family at bedside. Call light in reach of patient. -- 12:02 04/21/25 IGNACIO Stewart R.N. Interventions 11:52 04/21/25. To room. -- 12:02 04/21/25 EDT Javan Stewart R.N. 12:04 04/21/25. Advanced care plan discussed with family. Patient has advanced directive. (DNR per son). -- 12:04 04/21/25 EDT Javan Stewart R.N. PHYSICAL ASSESSMENT 12:11 04/21/25. To room via wheelchair. GENERAL / NEURO / PSYCH: Appears in no acute distress. Alert. The patient is disoriented to time. Speech within normal limits. HEENT: No facial asymmetry noted. Pupils equal, round and reactive to light. RESPIRATORY: Breath sounds within normal limits. Respirations not labored. CVS: Cardiac rhythm: atrial fibrillation. Capillary refill less than 2 seconds. GI / : Abdomen soft and nontender. SKIN: Skin is warm and dry. -- 12:11 04/21/25 EDT Gustavo Blackwell R.N. NURSING PROGRESS NOTES 12:00 04/21/25. Site #1 started in the right forearm with an 18g angiocath with aseptic technique and good blood return; 1 attempt. Blood drawn: rainbow set tube(s). Labeled in the presence of the patient and sent to the lab. Saline lock flushed with 10 mL saline. -- 12:04/21/25 RAJNIT Gustavo Blackwell R.N. 12:04/21/25. 12-LEAD EKG: EKG time: (11:55 04/21/2025). 12-Lead EKG was performed by a technology training associate and shown to the ED physician (11:55 04/21/2025). -- 12:04/21/25 EDT Javan Stewart R.N. 12:04/21/25. Two patien (more content not included)... Normal [facility] ED ORDER SHEET (CPOE ONLY)on 05-05-2025 ED ORDER SHEET (CPOE ONLY) Order Sheet Order Sheet [address] [place] [address] [id number] 04/21/2025 Patient: STEPHANI ELIAS Sex: Male : 1940 Age: 85y MEASUREMENTS: Wt: 74.8 kg, Ht/Layo: 67.0 in, BMI: 25.84 ALLERGIES: Amoxicillin, Penicillins MEDICATION/IV/DRIP/FLU ID ORDERS Order Description Priority Entered Acknowledged Completed LAB ORDERS Order Description Priority Entered Acknowledged Collected Completed CBC w Diff Stat Stat 12:02 04/21/2025 12:09 04/21/2025 12:09 04/21/2025 Gustavo Causey, Alexx. Gustavo Blackwell, RMaulikN. D.O. Troponin-I Protocol Stat 12:02 04/21/2025 12:09 04/21/2025 12:09 04/21/2025 (STAT 1hr) (Sched: q1h Gustavo Causey, R.Jose. Gustavo Blackwell, R.N. X2); Stat 1 of 2 D.O. Troponin-I Protocol Stat 12:02 04/21/2025 12:09 04/21/2025 (STAT 1hr) (Sched: q1h Gustavo Causey, R.N. X2); Stat 2 of 2 D.O. EKG - ED Stat Stat 12:02 04/21/2025 12:09 04/21/2025 12:09 04/21/2025 Gustavo Causey, R.N. Gustavo Blackwell, R.N. 1 of 3 Order Sheet D.O. BNP Stat Stat 12:02 04/21/2025 12:09 04/21/2025 12:09 04/21/2025 Gustavo Causey, Chinyere.Jose. Gustavo Blackwell, R.N. D.O. DIAGNOSTIC STUDY ORDERS Order Description Priority Entered Acknowledged Completed Chest 1V Stat Stat 12:02 04/21/2025 12:09 12:09 Trevor Samaniego D.O. 04/21/2025 04/21/2025 Gustavo Wallace, Chinyere.N. R.N. Reason for Study: syncope CT Brain wo Cont Stat Stat 12:18 04/21/2025 12:20 13:50 Trevor Samaniego D.O. 04/21/2025 04/21/2025 Gustavo Wallace, MaryN. R.N. Reason for Study: Head Injury CT C-Spine wo Cont Stat Stat 12:18 04/21/2025 12:20 13:50 Trevor Samaniego D.O. 04/21/2025 04/21/2025 Gustavo Wallace, R.N. R.N. Reason for Study: Trauma/Injury STAFF ORDERS Order Description Priority Entered Acknowledged Collected Completed Obtain Old EKG 12:02 04/21/2025 12:08 04/21/2025 Javan Causey R.N. D.O. 2 of 3 Order Sheet [Electronically signed by Trevor Samaniego D.O. (05/05/2025 07:09 EDT)] 3 of 3 Normal [facility] ED PHYSICIAN CLINICAL REPORT on 05-05-2025 ED PHYSICIAN CLINICAL REPORT Narrative Physician Clinical Narrative [address] [place] [address] [phone] 04/21/2025 11:51:00 Patient: STEPHANI ELIAS Sex: Male : 1940 Age: 85y Disposition: Discharge to Home Disposition Decision Time: 14:19 04/21/2025 Departure Time: 14:22 04/21/2025 Measurements Wt: 74.8 kg, Ht/Layo: 67.0 in, BMI: 25.84 Initial Vital Sign Measured Time BP MAP HR RR O2Sat ETCO2 Temp Pain GCS RTS 12:02 04/21/2025 59 96% Time Seen: 12:00 04/21/2025. Arrived- By ambulance. Historian- patient. HISTORY OF PRESENT ILLNESS Chief Complaint: SINGLE SYNCOPAL EPISODE. This occurred just prior to arrival. The patient had preceding symptoms of light-headedness and chest pain. The patient collapsed. Currently the patient feels normal. Similar symptoms previously. None. Recent medical care: Not recently seen/assessed. REVIEW OF SYSTEMS NEUROLOGICAL: No headache. CVS: The patient has had chest pain. GI: No abdominal pain, vomiting or diarrhea. CONSTITUTIONAL: No fever. THROAT: No sore throat. : No difficulty with urination. SKIN: No skin rash. 1 of 10 Narrative PAST HISTORY See nurses notes. Atrial Fibrillation GERD Hypercholesterolemia Hypertension Parkinson's Disease Prostate Disease Surgeries: Cataract Surgery Cholecystectomy Coronary Artery Bypass Graft: (2 separate surgeries.) Medications: aspirin 81 mg tablet: 81 mg once a day . atorvastatin 40 mg tablet: 40 mg once a day . Eliquis 5 mg tablet: 1 tablet twice a day. finasteride 5 mg tablet: 5 mg once a day . lisinopriL 5 mg tablet: 5 mg once a day . pantoprazole 40 mg tablet,delayed release: 40 mg once a day . Stool Softener 100 mg capsule: 100 mg once a day as needed for constipation. terazosin 10 mg capsule: 10 mg once a day . Allergies: Amoxicillin Penicillins SOCIAL HISTORY Unknown if ever smoked. No alcohol use. FAMILY HISTORY Negative. 2 of 10 Narrative ADDITIONAL NOTES The nursing notes have been reviewed. PHYSICAL EXAM Vital Signs: Have been reviewed. Appearance: Alert. No acute distress. Eyes: Pupils equal, round and reactive to light. No nystagmus. ENT: Normal ENT inspection. Moist mucous membranes. Neck: Normal inspection. CVS: Normal heart rate and rhythm. Respiratory: No respiratory distress. Painless inspiration. Abdomen: Soft. Back: Normal inspection. Skin: Normal skin color. Extremities: Extremities exhibit normal ROM. Neuro: Alert. Mood/affect normal. Speech normal. Cranial nerves normal (as tested). LABS, X-RAYS, AND EKG Laboratory Tests: CBC + DIFF Final ALTAGRACIA: 04/21/2025 11:58:00 EDT MsgRcvd: 04/21/2025 12:26 EDT Lab Test Result Reference Status Received Comments 04/21/2025 12:26 CBC-COMPLETE CBC + DIFF Final EDT BLOOD COUNT 04/21/2025 12:26 WBC 4.5 x 10/UL 4.5 - 10.8 Final EDT 3.51 x 10/UL 04/21/2025 12:26 RBC 4.50 - 6.00 Final Below low normal EDT 3 of 10 Narrative Lab Test Result Reference Status Received Comments 11.1 g/dl 04/21/2025 12:26 HEMOGLOBIN 13.0 - 17.5 Final Below low normal EDT 30.6 % 04/21/2025 12:26 HEMATOCRIT 40.0 - 52.0 Final Below low normal EDT 04/21/2025 12:26 MCV 87 fl 81 - 98 Final EDT 04/21/2025 12:26 MCH 32 pg 27 - 33 Final EDT 04/21/2025 12:26 MCHC 36 X10 3 32 - 36 Final EDT 04/21/2025 12:26 RDW/CV 14.3 % 12.0 - 15.6 Final EDT 04/21/2025 12:26 PLATELET 184 x10/UL 150 - 450 Final EDT 04/21/2025 12:26 AUTOMATED MPV 7.4 fl 6.4 - 10.5 Final EDT DIFFERENTIAL 04/21/2025 12:26 NEUT % 61.2 % 46.0 - 76.0 Final EDT 04/21/2025 12:26 LYMPH % 27.1 % 20.0 - 45.0 Final EDT 10.6 % 04/21/2025 12:26 MONOS % 0.0 - 10.0 Final Above high normal EDT 04/21/2025 12:26 EO % 0.8 % 0.0 - 7.0 Final EDT 04/21/2025 12:26 BASO % 0.3 % 0.0 - 2.0 Final EDT 4 of 10 Narrative Lab Test Result Reference Status Received Comments 04/21/2025 12:26 Lymph # 1.23 x10/UL 0.80 - 2.80 Final EDT 04/21/2025 12:26 Neut # 2.77 x10/UL 1.50 - 7.10 Final EDT 04/21/2025 12:26 Levy # 0.48 x10/UL 0.20 - 1.00 Final EDT 04/21/2025 12:26 EO # 0.04 x10/UL 0.00 - 0.50 Final EDT 04/21/2025 12:26 Baso # 0.01 x10/UL 0.00 - 0.10 Final EDT 04/21/2025 12:26 MANUAL DIFF N/A New Order EDT 04/21/2025 12:26 MORPHOLOGY N/A New Order EDT NT-proBNP Final ALTAGRACIA: 04/21/2025 11:58:00 EDT MsgRcvd: 04/21/2025 13:03 EDT Lab Test Result Reference Status Received Comments 829 pg/mL 04/21/2025 13:03 NT PRO-BNP 0 - 450 Final Above high normal EDT TROPONIN Final ALTAGRACIA: 04/21/2025 11:58:00 EDT MsgRcvd: 04/21/2025 13:03 EDT Lab Test Result Reference Status Received Comments 04/21/2025 13:03 HS TROPONIN 9.7 pg/mL 0.0 - 76.2 Final EDT (more content not included)... Normal [facility] ED SUPER BILLon 05-05-2025 ED SUPER BILL [address] [address] [phone] 04/21/2025 Patient: STEPHANI ELIAS Sex: Male : 1940 Age: 85y Professional Category Item Description Facility Code Code Quantity Fee Total Nurse/E/M EMERGENCY 538842 1 $0.00 $0.00 DEPT VISIT HIGH SEVERITYFUNCJ (16242-75) Grand Total $0.00 Providers Trevor Samaniego D.O. Chief Complaint SINGLE SYNCOPAL EPISODE. Principal Diagnosis Vasovagal syncope. Minor closed head injury. ICD-10 Codes R55: Syncope and collapse 1 of 2 [facility] S06.890A: Other specified intracranial injury without loss of consciousness, initial encounter 2 of 2 Normal [facility] ED VISIT SUMMARYon ED VISIT SUMMARY Visit Overview Visit Overview [address] [address] [id number] 04/21/2025 Patient: STEPHANI ELIAS Sex: Male : 1940 Age: 85y 05/05/2025 07:09 AM EDT ED Arrival:11:51 04/21/2025 EDT Status: Recent Travel:no Language:eng Adv Directive:Yes Isolation Status: Ethnicity:N Fall Risk: Infectious Disease Exposure:no Measurements:5'7 / 170.2 Self-Harm Status:risk Sepsis Screen:negative cm 165.0 lb / 74.8 kg Chief Complaint:SINGLE SYNCOPAL EPISODE, ([place]), and (took 1 SL nitro prior to syncopal episode) ALLERGIES Amoxicillin Penicillins HOME MEDICATIONS aspirin 81 mg tablet: 81 mg once a day . atorvastatin 40 mg tablet: 40 mg once a day . Eliquis 5 mg tablet: 1 tablet twice a day. finasteride 5 mg tablet: 5 mg once a day . 1 of 3 Visit Overview lisinopriL 5 mg tablet: 5 mg once a day . pantoprazole 40 mg tablet,delayed release: 40 mg once a day . Stool Softener 100 mg capsule: 100 mg once a day as needed for constipation. terazosin 10 mg capsule: 10 mg once a day . PAST MEDICAL HISTORY / PROBLEMS Atrial Fibrillation GERD Hypercholesterolemia Hypertension Parkinson's Disease Prostate Disease See nurses notes PAST SURGICAL HISTORY Cataract Surgery Cholecystectomy Coronary Artery Bypass Graft. (2 separate surgeries.) SOCIAL HISTORY Smoking status: No Alcohol use: No Drug use: No ED COURSE MEDICATIONS GIVEN IN EMERGENCY DEPARTMENT IV SITE INFORMATION INTAKE OUTPUT REASSESMENT (most recent) 2 of 3 Visit Overview 12:11 04/21/25. To room via wheelchair. GENERAL / NEURO / PSYCH: Appears in no acute distress. Alert. The patient is disoriented to time. Speech within normal limits. HEENT: No facial asymmetry noted. Pupils equal, round and reactive to light. RESPIRATORY: Breath sounds within normal limits. Respirations not labored. CVS: Cardiac rhythm: atrial fibrillation. Capillary refill less than 2 seconds. GI / : Abdomen soft and nontender. SKIN: Skin is warm and dry. VITAL SIGNS First Vitals Last Vitals Temp 12:02 04/21/25 Temp 14:04/21/25 BP 12:02 04/21/25 BP 14:04/21/25 146/71 HR 12:02 04/21/25 59 HR 14:04/21/25 57 RR 12:02 04/21/25 RR 14:09 04/21/25 O2 Sat 12:02 04/21/25 96% O2 Sat 14:04/21/25 Pain 12:02 04/21/25 Pain 14:09 04/21/25 ETCO2 12:02 04/21/25 ETCO2 14:09 04/21/25 GCS 12:02 04/21/25 GCS 14:09 04/21/25 RTS 12:02 04/21/25 RTS 14:04/21/25 PROCEDURES NURSING INTERVENTIONS LABS / STUDIES LABS / STUDIES ORDERED BNP CBC w Diff Chest 1V CT Brain wo Cont CT C-Spine wo Cont EKG - ED Troponin-I Protocol (STAT 1hr) Troponin-I Protocol (STAT 1hr) CLINICAL IMPRESSION MINOR CLOSED HEAD INJURY VASOVAGAL SYNCOPE 3 of 3 Normal [facility] ED VITALS FLOW SHEETon 05-05 ED VITALS FLOW SHEET Vitals Vital Sign Flow Sheet [address] [place] [address] [phone] 04/21/2025 Patient: STEPHANI ELIAS Sex: Male : 1940 Age: 85y Measurements Wt: 74.8 kg, Ht/Layo: 67.0 in, BMI: 25.84 Measured Time BP MAP HR RR O2Sat ETCO2 Temp Pain GCS RTS 14:09 04/21/2025 146/71 94 57 13:54 04/21/2025 132/72 84 58 13:39 04/21/2025 135/67 81 53 13:24 04/21/2025 135/61 85 56 13:09 04/21/2025 128/70 84 54 12:54 04/21/2025 117/58 73 47 12:40 04/21/2025 132/65 80 56 12:24 04/21/2025 115/55 85 54 12:22 04/21/2025 56 98% 12:17 04/21/2025 50 96% 12:12 04/21/2025 54 96% 12:09 04/21/2025 102/61 82 54 12:07 04/21/2025 53 96% 12:02 04/21/2025 120/65 83 60 16 96% 97.4 F 0 12:02 04/21/2025 59 96% 1 of 2 Vitals 2 of 2 Normal [facility] CBC + DIFFon 04-21-2025 Baso # 0.01 x10EE3/UL Normal 0.00 - 0.10 [facility] Comment on above: Performed By: #### 2 [id number] ####[facility],[address] [place] [address] 30896 Basophils/100 WBC (Bld) 0.3 % Normal 0.0 - 2.0 [facility] Comment on above: Performed By: #### 2 75471 ####[facility],[address] [place] [address] 41849 CBC + DIFF Normal [facility] Comment on above: Result Comment: CBC- COMPLETE BLOOD COUNT Performed By: #### 2 [id number] ####[facility],[address] [place] [address] EO # 0.04 x10EE3/UL Normal 0.00 - 0.50 [facility] Comment on above: Performed By: #### 2 11430 ####[facility],[address] [place] [address] Eosinophils/100 WBC (Bld) 0.8 % Normal 0.0 - 7.0 [facility] Comment on above: Performed By: #### 2 29220 ####[facility],[address] [place] [address] Erythrocyte distribution width (RBC) [Ratio] 14.3 % Normal 12.0 - 15.6 [facility] Comment on above: Performed By: #### 2 40934 ####[facility],[address] [place] [address] Hematocrit (Bld) [Volume fraction] 30.6 % Low 40.0 - 52.0 [facility] Comment on above: Performed By: #### 2 17685 ####[facility],[address] [place] [address] Hemoglobin (Bld) [Mass/Vol] 11.1 g/dL Low 13.0 - 17.5 [facility] Comment on above: Performed By: #### 2 52552 ####[facility],[address] [place], [place] [id number] Lymph # 1.23 x10EE3/UL Normal 0.80 - 2.80 [facility] Comment on above: Performed By: #### 2 37069 ####[facility],[address] [place], [place] [id number] Lymphocytes/100 WBC (Bld) 27.1 % Normal 20.0 - 45.0 [facility] Comment on above: Performed By: #### 2 82429 ####[facility],[address] [place] [address] MANUAL DIFF N/A Normal [facility] Comment on above: Performed By: #### 2 83287 ####[facility],[address] [place] [address] MCH (RBC) [Entitic mass] 32 pg Normal 27 - 33 [facility] Comment on above: Performed By: #### 2 90305 ####[facility],[address] [place] [address] MCHC 36 X10 3 Normal 32 - 36 [facility] Comment on above: Performed By: #### 2 18199 ####[facility],[address] [place] [address] MCV (RBC) [Entitic vol] 87 fL Normal 81 - 98 [facility] Comment on above: Performed By: #### 2 22605 ####[facility],[address] [place] [address] Levy # 0.48 x10EE3/UL Normal 0.20 - 1.00 [facility] Comment on above: Performed By: #### 2 71354 ####[facility],[address] [place] [address] MONOS % 10.6 % High 0.0 - 10.0 [facility] Comment on above: Performed By: #### 2 46820 ####[facility],[address] [place] [address] Morphology Scott (Bld) [Interp] N/A Normal [facility] Comment on above: Performed By: #### 2 77758 ####[facility],[address] [place] [address] Neut # 2.77 x10EE3/UL Normal 1.50 - 7.10 [facility] Comment on above: Performed By: #### 2 87654 ####[facility],[address],[place] [address] Neutrophils/100 WBC (Bld) 61.2 % Normal 46.0 - 76.0 [facility] Comment on above: Performed By: #### 2 46924 ####[facility],[address] [place] [address] PLATELET 184 x10EE3/UL Normal 150 - 450 [facility] Comment on above: Performed By: #### 2 22652 ####[facility],[address] [place] [address] Platelet mean volume (Bld) [Entitic vol] 7.4 fL Normal 6.4 - 10.5 [facility] Comment on above: Result Comment: AUTO MATED DIFFERENTIAL Performed By: #### 2 22546 ####[facility],[address] [place] [address]141 RBC 3.51 x 10EE6/UL Low 4.50 - 6.00 [facility] Comment on above: Performed By: #### 2 16721 ####[facility],[address] [place] [address]365 WBC 4.5 x 10EE3/UL Normal 4.5 - 10.8 [facility] Comment on above: Performed By: #### 2 56830 ####[facility],[address] [place] [address] 15877 CHEST 1 VIEWon 04-21-2025 CHEST 1 VIEW [place] [address] Patient: STEPHANI ELIAS Phone#: : 1940 Age: 85 Gender: M Pt. Type: ER Account: [id number] Location: [facility] Ordering: TREVOR SAMANIEGO Exam Date: 04/21/2025/12:03 Family Phys: KELTON BARRIGA Charge Code: 399408 Physician: [place] Order #: [id number] Dose#: PROCEDURE: X-RAY CHEST 1 VIEW COMPARISON: [facility], XR, CHEST 1 VIEW, 03/25/2025, 12:44. INDICATIONS: Syncope. FINDINGS: LUNGS: Normal. No significant pulmonary parenchymal abnormalities. VASCULATURE: Normal. Unremarkable pulmonary vasculature. CARDIAC: Normal. No cardiac silhouette abnormality or cardiomegaly. MEDIASTINUM: The aorta is ectatic. Calcifications present at the aortic arch. PLEURA: Normal. No effusion or pleural thickening. BONES: Normal. No fracture or visible bony lesion. OTHER: Sternotomy sutures are present. CONCLUSION: No acute disease. No significant change has occurred. Dictated by: Eun Hauser MD on 04/21/2025 at 12:32 Approved by: Eun Hauser MD on 04/21/2025 at 12:37 Normal [facility] CT BRAIN W/O CONTRASTon 04-11 CT BRAIN W/O CONTRAST [place] [address] Patient: STEPHANI ELIAS Phone#: : 1940 Age: 85 Gender: M Pt. Type: ER Account: [id number] Location: 052 Ordering: TREVOR SAMANIEGO Exam Date: 04/21/2025/12:30 Family Phys: KELTON BARRIGA Charge Code: [id number] Physician: [place] Order #: [id number] Dose#: 52.30 mGy PROCEDURE: CT BRAIN WITHOUT CONTRAST COMPARISON: None. INDICATIONS: Head injury. TECHNIQUE: CT images were obtained without contrast material. All CT scans at this facility use dose modulation, iterative reconstruction, and/or weight based dosing when appropriate to reduce radiation dose to as low as reasonably achievable. IV CONTRAST: No IV contrast used,0.0ml TOTAL DOSE: 52.30 CTDIvol(mGy) FINDINGS: CEREBRUM: Age-appropriate atrophy is present, without visible acute hemorrhage or lesion. CEREBELLUM: There is encephalomalacia involving the left cerebellar hemisphere. BRAINSTEM: No edema, hemorrhage, mass, acute infarction, or inappropriate atrophy. CSF SPACES: Ventricles, cisterns, and sulci are appropriate for age. No hydrocephalus, subarachnoid hemorrhage, or mass. SKULL: No mass or other significant visible lesion. SINUSES: Limited views demonstrate no significant mucosal thickening or fluid. ORBITS: Limited views are unremarkable. OTHER: Dense carotid calcification is present paraclinoid. CONCLUSION: 1. There is no evidence of acute intracranial abnormality. Dictated by: Eun Hauser MD on 04/21/2025 at 13:18 Approved by: Eun Hauser MD on 04/21/2025 at 13:20 Normal [facility] CT CERVICAL W/O CONTRASTon 0 04-21-2025 CT CERVICAL W/O CONTRAST [place] [address] Patient: STEPHANI ELIAS Phone#: : 1940 Age: 85 Gender: M Pt. Type: ER Account: [id number] Location: [facility] Ordering: TREVOR SAMANIEGO Exam Date: 04/21/2025/12:30 Family Phys: KELTON Navid BARRIGA Charge Code: [id number] Physician: [place] Order #: [id number] Dose#: 9.50 mGy PROCEDURE: CT CERVICAL WITHOUT CONTRAST COMPARISON: None. INDICATIONS: Trauma. TECHNIQUE: Multi-planar CT images were created without intravenous contrast. All CT scans at this facility use dose modulation, iterative reconstruction, and/or weight-based dosing when appropriate to reduce radiation dose to as low as reasonably achievable. IV CONTRAST: No IV contrast used,0.0ml TOTAL DOSE: 9.50 CTDIvol(mGy) FINDINGS: CRANIOCERVICAL AREA: Normal foramen magnum with no Chiari malformation. PARASPINAL AREA: Normal with no visible mass. BONES: No fracture, pars defect, or osseous lesion. There is straightening of the normal cervical lordosis. CERVICAL DISC LEVELS: C2-C3: Bony hypertrophy is present with bilateral for. C3-C4: Disc space narrowing is present. Bony hypertrophy is present bilateral foraminal narrowing. C4-C5: Disc space narrowing is present. Bony hypertrophy is present. C5-C6: Disc space narrowing is present. Bony hypertrophy is present bilateral narrowing. C6-C7: Bony hypertrophy is present with foraminal narrowing. The disc space is narrowed. C7-T1: No significant disc/facet abnormality, spinal stenosis, or foraminal stenosis. CONCLUSION: 1. Multilevel degenerative changes present. Foraminal impingement is present at multiple levels related to bony hypertrophy. Dictated by: Eun Hauser MD on 04/21/2025 at 13:20 Approved by: Eun Hauser MD on 04/21/2025 at 13:23 Normal [facility] NT-proBNPon 04-21-2025 Natriuretic peptide B (Bld) [Mass/Vol] 829 pg/mL High 0 - 450 [facility] Comment on above: Performed By: #### 2 [id number] #### [facility],[address] [place] [address]016 TROPONINon 04-21-2025 HS TROPONIN 12.8 pg/mL Normal 0.0 - 76.2 [facility] Comment on above: Performed By: #### 2 53816 ####[facility],[address] [place] [address]15 HS TROPONIN 9.7 pg/mL Normal 0.0 - 76.2 [facility] Comment on above: Performed By: #### 2 80504 #### [facility],[address] [place] [address]001 ED MED ADMINISTRATION DETAIL on 03-26-2025 ED MED ADMINISTRATION DETAIL [employer] Medication Administration Record [address] [address] [id number] 03/25/2025 Patient: STEPHANI ELIAS Sex: Male : 1940 Age: 85y MEASUREMENTS: Wt: 72.6 kg, Ht/Layo: 66.0 in, BMI: 25.82 ALLERGIES: Amoxicillin, Penicillins Medication Ordered Medication Administration Date/Time IV NS 0.9 % 1000 12:52 03/25 IV NS 0.9 % 1000 mL started in bag#1 1000 mL at Started mL at 999 mL/hr 999 mL/hr via Site# 1. Allergies verified and confirmed 5 rights. Via 12:52 03/25/2025 (NOW x1) IV pump. IV patency established. IV site checked: no pain, redness, Melonie Roman, R.N. or swelling. IV flushed thoroughly pre-medication administration. Stopped Information reviewed with patient and family including reason for 14:00 03/25/2025 taking this medication, signs of allergic reaction and precautions. Melonie Owens R.N. Verbalizes understanding. - 12:53 Melonie Owens R.N. Scanned 14:00 03/25 Medication Discontinued: bag #1 infused. Total amount infused: 1000 mL. IV patency established. IV site checked: no pain, redness, or swelling. IV flushed thoroughly post-medication administration. - 16:34 Melonie Owens R.N. 1 of 1 Normal [facility] ED NURSES CLINICAL NOTEon ED NURSES CLINICAL NOTE Nurse Narrative Nurse Clinical Narrative [address] [place] [address] [id number] 03/25/2025 12:17:00 Patient: STEPHANI ELIAS Sex: Male : 1940 Age: 85y Disposition: Discharge to Home Disposition Decision Time: 16:09 03/25/2025 Departure Time: 16:24 03/25/2025 TRIAGE Arrived by private vehicle. Historian: (patient and family). Accompanied by family. Patient has a primary care physician. Primary physician (Kiki). Triage time: 12:21 03/25/2025. Acuity: LEVEL 3. Chief Complaint: WEAKNESS and DIFFICULTY WALKING (difficulty swallowing, worsening Parkinson's). Onset was gradual. (worsening the past week). The patient has had weakness. SEPSIS SCREEN: NEGATIVE. SIRS criteria negative. No possible sources of infection. -- 12:36 03/25/[address] R.N. 12:35 03/25/25. BP: 138/72 MAP: 94. HR: 61. RR: 14. O2 saturation: 99% Temperature: 98 F. Pain level now 0/10. -- 12:35 03/25/[address] R.N. Measurements: 12:35 03/25/25 Wt: 72.6 kg, Ht/Layo: 66.0 in, BMI: 25.82 -- 12:03/25/[address] R.N. Medications: aspirin 81 mg tablet: 81 mg once a day . -- 12:03/25/[address] R[address]N. atorvastatin 40 mg tablet: 40 mg once a day . -- 12:03/25/[address] R[address]N. finasteride 5 mg tablet: 5 mg once a day . -- 12:03/25/[address] R[address]N. 1 of 4 Nurse Narrative lisinopriL 5 mg tablet: 5 mg once a day . -- 12:03/25/[address] R[address]N. pantoprazole 40 mg tablet,delayed release: 40 mg once a day . -- 12:03/25/[address] R[address]N. clopidogreL 75 mg tablet: 75 mg once a day . -- 12:03/25/[address] R[address]N. terazosin 10 mg capsule: 10 mg once a day . -- 12:03/25/[address] R[address]N. Stool Softener 100 mg capsule: 100 mg once a day as needed for constipation. -- 12:03/25/[address] R.N. 12:03/25/25. Preferred Pharmacy: [facility] -- 12:36 03/25/[address] R[address]N. Allergies: Penicillins -- 12:25 03/25/[address] R.N. Amoxicillin -- 15:36 03/25/25 EDT Melonie Owens R.N. Problems: Hypercholesterolemia -- 12:03/25/[address] R.N. Hypertension -- 12:03/25/[address] R.N. Parkinson's Disease -- 12:03/25/[address] R.N. Atrial Fibrillation -- 12:03/25/[address] R.N. Prostate Disease -- 12:03/25/[address] R.N. GERD -- 12:32 03/25/[address] R.N. Surgeries: Coronary Artery Bypass Graft -- 12:32 03/25/[address] R.N. Cholecystectomy -- 12:32 03/25/[address] R.N. Cataract Surgery -- 12:32 03/25/[address] R.N. History 12:21 03/25/25. PAST MEDICAL HX: Immunizations: up-to-date. SOCIAL HX: Never smoker. No alcohol use or drug use. The patient has not traveled outside the [place] Infectious disease exposure: No infectious disease exposure. ABUSE ASSESSMENT: The patient answered yes to the question(s) Do you feel safe in your home? and 2 of 4 Nurse Narrative no to the question(s) Are you afraid to go home?. SELF HARM ASSESSMENT: Self harm assessment was performed. The patient answered no to the question(s) Have you recently felt down, depressed, or hopeless? and Do you have thoughts of harming or killing yourself?. FALL RISK ASSESSMENT: Fall risk assessment completed. Risk factors identified include patient age greater than 65 years, diagnosis of parkinson's and impairment of mobility. Fall interventions initiated. Side rails up x2. Bed in low position. Brakes on. Patient identified as a fall risk by ID band. Call light in reach of patient. Instructed not to get up without assistance. -- 12:36 03/25/[address] R.N. Interventions 12:21 03/25/25. Advanced care plan discussed with family. Patient has a [id number] (DNR). -- 12:36 03/25/[address] R.N. PHYSICAL ASSESSMENT 12:30 03/25/25. GENERAL / NEURO / PSYCH: Alert. Oriented X 4. Appears in no acute distress. The patient has weakness. HEENT: Pupils equal, round and reactive to light. Trouble handling secretions (secondary to abnormal tongue movements). Muffled voice. RESPIRATORY: Respirations not labored. Chest nontender. Breath sounds within normal limits. CVS: Cardiac rhythm: atrial fibrillation. Capillary refill less than 2 seconds. Pulses within normal limits. GI / : Abdomen soft and nontender and normal bowel sounds. EXTREMITIES: The patient has pre-existing constant twitching (tongue). SKIN: Skin intact. Skin is warm and dry. -- 13:21 03/25/25 EDT Melonie Owens R.N. NURSING PROGRESS NOTES 12:49 03/25/25. injection maintenance technician at the patient's bedside (for chest xray) (12:48 03/25/2025). -- 12:49 03/25/25 EDT Melonie Owens R.N. 12:52 03/25/25. IV NS 0.9 % 1000 mL star (more content not included)... Normal [facility] ED ORDER SHEET (CPOE ONLY)on 03-26-2025 ED ORDER SHEET (CPOE ONLY) Order Sheet Order Sheet [address] [place] [address] [id number] 03/25/2025 Patient: STEPHANI ELIAS Sex: Male : 1940 Age: 85y MEASUREMENTS: Wt: 72.6 kg, Ht/Layo: 66.0 in, BMI: 25.82 ALLERGIES: Amoxicillin, Penicillins MEDICATION/IV/DRIP/FLU ID ORDERS Order Description Priority Entered Acknowledged Completed IV NS 0.9 %1000 mL at 999 12:43 03/25/2025 12:45 12:53 mL/hr (NOW x1) Trevor Samaniego D.O. 03/25/2025 03/25/2025 Melonie Hannon R.N. R.N. LAB ORDERS Order Description Priority Entered Acknowledged Collected Completed CBC w Diff Stat Stat 12:43 03/25/2025 12:45 03/25/2025 12:45 03/25/2025 Melonie [place] Katelyn Horst, D.O. R.N. R.N. CMP Stat Stat 12:43 03/25/2025 12:45 03/25/2025 12:45 03/25/2025 Melonie [place] Katelyn Horst, D.O. R.N. R.N. Troponin-I Stat Stat 12:43 03/25/2025 12:45 03/25/2025 12:45 03/25/2025 Melonie [place], Melonie Owens, 1 of 2 Order Sheet Manny HernandezN. R.N. EKG - ED Stat Stat 12:43 03/25/2025 12:45 03/25/2025 13:06 03/25/2025 Melonie Cause[place] Katelyn Horst, D.O. R.N. R.N. Urinalysis Stat Stat 12:43 03/25/2025 12:45 03/25/2025 14:33 03/25/2025 Melonie [place] Katelyn Horst, D.O. R.N. R.NMaulik DIAGNOSTIC STUDY ORDERS Order Description Priority Entered Acknowledged Completed Chest 1V Stat Stat 12:43 03/25/2025 12:45 12:53 Trevor Samaniego D.O. 03/25/2025 03/25/2025 Melonie Hannon, R.N. R.N. Reason for Study: weakness STAFF ORDERS Order Description Priority Entered Acknowledged Collected Completed IV Saline Lock 12:43 03/25/2025 12:45 03/25/2025 12:45 03/25/2025 Melonie [place] Katelyn Horst, D.O. R.N. R.N. [Electronically signed by Trevor Samaniego D.O. (03/26/2025 09:39 EDT)] 2 of 2 Normal [facility] ED PHYSICIAN CLINICAL REPORT on 03-26-2025 ED PHYSICIAN CLINICAL REPORT Narrative Physician Clinical [address] [address] [id number] 03/25/2025 12:17:00 Patient: STEPHANI ELIAS Sex: Male : 1940 Age: 85y Disposition: Discharge to Home Disposition Decision Time: 16:09 03/25/2025 Departure Time: 16:24 03/25/2025 Measurements Wt: 72.6 kg, Ht/Layo: 66.0 in, BMI: 25.82 Initial Vital Sign Measured Time BP MAP HR RR O2Sat ETCO2 Temp Pain GCS RTS 12:19 03/25/2025 59 98% Time Seen: 12:19 03/25/2025. Arrived- By private vehicle. Historian- patient. Independent historian- family. HISTORY OF PRESENT ILLNESS Chief Complaint: Generalized weakness. Is still present. The patient has had fatigue and weakness. Similar symptoms previously. Recent medical care: Not recently seen/assessed. REVIEW OF SYSTEMS MUSCULOSKELETAL: No back pain. CONSTITUTIONAL: No fever or chills. THROAT: No sore throat. NOSE: No sinus drainage. RESPIRATORY: No cough or difficulty breathing. GI: No abdominal pain, nausea or vomiting. : No difficulty with urination. SKIN: No skin rash. NEUROLOGICAL: No headache or blackouts. No difficulty with ambulation. 1 of 11 Narrative PAST HISTORY See nurses notes. Atrial Fibrillation GERD Hypercholesterolemia Hypertension Parkinson's Disease Prostate Disease Surgeries: Cataract Surgery Cholecystectomy Coronary Artery Bypass Graft Medications: aspirin 81 mg tablet: 81 mg once a day . atorvastatin 40 mg tablet: 40 mg once a day . clopidogreL 75 mg tablet: 75 mg once a day . finasteride 5 mg tablet: 5 mg once a day . lisinopriL 5 mg tablet: 5 mg once a day . pantoprazole 40 mg tablet,delayed release: 40 mg once a day . Stool Softener 100 mg capsule: 100 mg once a day as needed for constipation. terazosin 10 mg capsule: 10 mg once a day . Allergies: Amoxicillin Penicillins SOCIAL HISTORY Never smoker. ADDITIONAL NOTES The nursing notes have been reviewed. 2 of 11 Narrative PHYSICAL EXAM Vital Signs: Have been reviewed. Appearance: Alert. Anxious. Eyes: Pupils equal, round and reactive to light. Eyes normal inspection. Neck: Normal inspection. CVS: Normal heart rate and rhythm. Respiratory: No respiratory distress. Breath sounds normal. Abdomen: Soft and nontender. Skin: Skin warm and dry. Normal skin color. Extremities: Extremities exhibit normal ROM. No lower extremity edema. Neuro: Oriented X 3. LABS, X-RAYS, AND EKG Laboratory Tests: CBC + DIFF Final ALTAGRACIA: 03/25/2025 12:34:00 EDT MsgRcvd: 03/25/2025 14:13 EDT Lab Test Result Reference Status Received Comments 03/25/2025 14:13 CBC-COMPLETE CBC + DIFF Final EDT BLOOD COUNT 03/25/2025 14:13 WBC 4.7 x 10/UL 4.5 - 10.8 Final EDT 3.97 x 10/UL 03/25/2025 14:13 RBC 4.50 - 6.00 Final Below low normal EDT 12.1 g/dl 03/25/2025 14:13 HEMOGLOBIN 13.0 - 17.5 Final Below low normal EDT 34.1 % 03/25/2025 14:13 HEMATOCRIT 40.0 - 52.0 Final Below low normal EDT 3 of 11 Narrative Lab Test Result Reference Status Received Comments 03/25/2025 14:13 MCV 86 fl 81 - 98 Final EDT 03/25/2025 14:13 MCH 31 pg 27 - 33 Final EDT 03/25/2025 14:13 MCHC 36 X10 3 32 - 36 Final EDT 03/25/2025 14:13 RDW/CV 14.3 % 12.0 - 15.6 Final EDT 03/25/2025 14:13 PLATELET 170 x10/UL 150 - 450 Final EDT 03/25/2025 14:13 AUTOMATED MPV 8.0 fl 6.4 - 10.5 Final EDT DIFFERENTIAL 03/25/2025 14:13 NEUT % 53.5 % 46.0 - 76.0 Final EDT 03/25/2025 14:13 LYMPH % 35.5 % 20.0 - 45.0 Final EDT 03/25/2025 14:13 MONOS % 9.7 % 0.0 - 10.0 Final EDT 03/25/2025 14:13 EO % 1.0 % 0.0 - 7.0 Final EDT 03/25/2025 14:13 BASO % 0.3 % 0.0 - 2.0 Final EDT 03/25/2025 14:13 Lymph # 1.66 x10/UL 0.80 - 2.80 Final EDT 03/25/2025 14:13 Neut # 2.51 x10/UL 1.50 - 7.10 Final EDT 4 of 11 Narrative Lab Test Result Reference Status Received Comments 03/25/2025 14:13 Levy # 0.45 x10/UL 0.20 - 1.00 Final EDT 03/25/2025 14:13 EO # 0.04 x10/UL 0.00 - 0.50 Final EDT 03/25/2025 14:13 Baso # 0.01 x10/UL 0.00 - 0.10 Final EDT 03/25/2025 14:13 MANUAL DIFF N/A New Order EDT 03/25/2025 14:13 MORPHOLOGY N/A New Order EDT CMP with eGFR Final ALTAGRACIA: 03/25/2025 12:34:00 EDT MsgRcvd: 03/25/2025 14:09 EDT Lab Test Result Reference Status Received Comments COMPREHENSIVE 03/25/2025 CMP with eGFR Final METABOLIC 14:09 EDT PANEL 03/25/2025 SODIUM 138 mmol/l 136 - 145 Final 14:09 EDT 03/25/2025 POTASSIUM 4.3 mmol/L 3.5 - 5.1 Final 14:09 EDT 03/25/2025 CHLORIDE 105 mmol/L 98 - 107 Final 14:09 EDT 03/25/2025 CO2 26.3 mmol/L 21.0 - 32.0 Final 14:09 EDT 03/25/2025 GLUCOSE 95 mg/dl 74 - 106 Final 14:09 EDT 5 of 11 Narrative Lab Test (more content not included)... Normal [facility] ED SUPER BILLon 03-26-2025 ED SUPER BILL [address] [address] [id number] 03/25/2025 Patient: STEPHANI ELIAS Sex: Male : 1940 Age: 85y Item Facility Professional Category Description Code Code Quantity Fee Total Drugs Normal Saline 078664 1 $0.00 $0.00 1000cc (211338) Nurse/E/M EMERGENCY 542655 1 $0.00 $0.00 DEPARTMENT VISIT HIGH/URGENT SEVERITY (56684-73) Nurse/IV/IM/Infusions Hydration initial 360421 1 $0.00 $0.00 (97010) Grand Total $0.00 Providers Trevor Samaniego D.O. Chief Complaint Generalized weakness. 1 of 2 [facility] Principal Diagnosis Generalized weakness. ICD-10 Codes R53.1: Weakness 2 of 2 Normal [facility] ED VISIT SUMMARYon ED VISIT SUMMARY Visit Overview Visit Overview [address] [place] [address] [id number] 03/25/2025 [id number] Sex: Male : 1940 Age: 85y 03/26/2025 09:39 AM EDT ED Arrival:12:17 03/25/2025 EDT Status: Recent Travel:no Language:eng Adv Directive:Yes (DNR) Isolation Status: Ethnicity:N Fall Risk:risk Infectious Disease Exposure:no Measurements:5'6 / 167.6 Self-Harm Status:risk Sepsis Screen:negative cm 160.0 lb / 72.6 kg Chief Complaint:DIFFICULTY WALKING, WEAKNESS, (difficulty swallowing, worsening Parkinson's), ([place]), and (worsening the past week ) ALLERGIES Amoxicillin Penicillins HOME MEDICATIONS aspirin 81 mg tablet: 81 mg once a day . atorvastatin 40 mg tablet: 40 mg once a day . clopidogreL 75 mg tablet: 75 mg once a day . 1 of 4 Visit Overview finasteride 5 mg tablet: 5 mg once a day . lisinopriL 5 mg tablet: 5 mg once a day . pantoprazole 40 mg tablet,delayed release: 40 mg once a day . Stool Softener 100 mg capsule: 100 mg once a day as needed for constipation. terazosin 10 mg capsule: 10 mg once a day . PAST MEDICAL HISTORY / PROBLEMS Atrial Fibrillation GERD Hypercholesterolemia Hypertension Immunizations: up-to-date Parkinson's Disease Prostate Disease See nurses notes PAST SURGICAL HISTORY Cataract Surgery Cholecystectomy Coronary Artery Bypass Graft SOCIAL HISTORY Smoking status: No Alcohol use: No Drug use: No ED COURSE MEDICATIONS GIVEN IN EMERGENCY DEPARTMENT 12:52 03/25/25 IV NS 0.9 % 1000 mL 999 mL/hr IV SITE INFORMATION INTAKE OUTPUT 2 of 4 Visit Overview REASSESMENT (most recent) 12:30 03/25/25. GENERAL / NEURO / PSYCH: Alert. Oriented X 4. Appears in no acute distress. The patient has weakness. HEENT: Pupils equal, round and reactive to light. Trouble handling secretions (secondary to abnormal tongue movements). Muffled voice. RESPIRATORY: Respirations not labored. Chest nontender. Breath sounds within normal limits. CVS: Cardiac rhythm: atrial fibrillation. Capillary refill less than 2 seconds. Pulses within normal limits. GI / : Abdomen soft and nontender and normal bowel sounds. EXTREMITIES: The patient has pre-existing constant twitching (tongue). SKIN: Skin intact. Skin is warm and dry. VITAL SIGNS First Vitals Last Vitals Temp 12:19 03/25/25 Temp 16:20 03/25/25 BP 12:19 03/25/25 BP 16:20 03/25/25 HR 12:19 03/25/25 59 HR 16:20 03/25/25 RR 12:19 03/25/25 RR 16:20 03/25/25 14 O2 Sat 12:19 03/25/25 98% O2 Sat 16:20 03/25/25 Pain 12:19 03/25/25 Pain 16:20 03/25/25 0 ETCO2 12:19 03/25/25 ETCO2 16:20 03/25/25 GCS 12:19 03/25/25 GCS 16:20 03/25/25 RTS 12:19 03/25/25 RTS 16:20 03/25/25 PROCEDURES NURSING INTERVENTIONS LABS / STUDIES LABS / STUDIES ORDERED CBC w Diff Chest 1V CMP EKG - ED Troponin-I Urinalysis LABS / STUDIES PENDING IMPORT CHEST 1 VIEW 3 of 4 Visit Overview CLINICAL IMPRESSION GENERALIZED WEAKNESS 4 of 4 Normal [facility] ED VITALS FLOW SHEETon 03-26 ED VITALS FLOW SHEET Vitals Vital Sign Flow Sheet [address] [address] [id number] 03/25/2025 Patient: STEPHANI ELIAS Sex: Male : 1940 Age: 85y Measurements Wt: 72.6 kg, Ht/Layo: 66.0 in, BMI: 25.82 Measured Time BP MAP HR RR O2Sat ETCO2 Temp Pain GCS RTS 16:20 03/25/2025 14 0 15:52 03/25/2025 166/74 108 61 15:49 03/25/2025 63 98% 15:44 03/25/2025 62 97% 15:39 03/25/2025 62 97% 15:34 03/25/2025 62 98% 15:29 03/25/2025 62 97% 15:24 03/25/2025 62 96% 15:23 03/25/2025 150/71 112 61 15:19 03/25/2025 62 94% 15:14 03/25/2025 66 97% 15:09 03/25/2025 65 95% 15:04 03/25/2025 66 95% 14:59 03/25/2025 62 96% 14:54 03/25/2025 65 96% 1 of 3 Vitals Measured Time BP MAP HR RR O2Sat ETCO2 Temp Pain GCS RTS 14:49 03/25/2025 64 95% 14:44 03/25/2025 62 96% 14:39 03/25/2025 58 96% 14:34 03/25/2025 60 97% 14:29 03/25/2025 61 95% 14:24 03/25/2025 59 98% 14:14 03/25/2025 61 98% 14:09 03/25/2025 52 97% 14:04 03/25/2025 55 98% 13:59 03/25/2025 59 96% 13:59 03/25/2025 164/71 102 60 13:54 03/25/2025 54 99% 13:49 03/25/2025 54 98% 13:44 03/25/2025 61 98% 13:39 03/25/2025 55 100% 13:39 03/25/2025 146/70 95 55 13:34 03/25/2025 53 97% 13:29 03/25/2025 53 98% 13:24 03/25/2025 54 97% 13:19 03/25/2025 157/70 99 53 13:19 03/25/2025 56 98% 13:14 03/25/2025 55 97% 13:09 03/25/2025 52 97% 13:04 03/25/2025 58 97% 12:59 03/25/2025 137/85 102 55 2 of 3 Vitals Measured Time BP MAP HR RR O2Sat ETCO2 Temp Pain GCS RTS 12:59 03/25/2025 53 98% 12:54 03/25/2025 55 96% 12:49 03/25/2025 57 96% 12:44 03/25/2025 57 96% 12:39 03/25/2025 63 98% 12:39 03/25/2025 138/72 94 60 12:35 03/25/2025 138/72 94 61 14 99% 98.0 F 0 12:34 03/25/2025 60 99% 12:24 03/25/2025 56 95% 12:19 03/25/2025 138/72 82 65 12:19 03/25/2025 59 98% 3 of 3 Normal [facility] CBC + DIFFon 03-25-2025 Baso # 0.01 x10EE3/UL Normal 0.00 - 0.10 [facility] Comment on above: Performed By: #### 2 [id number] #### [facility],[address] [place], [place] [id number] Basophils/100 WBC (Bld) 0.3 % Normal 0.0 - 2.0 [facility] Comment on above: Performed By: #### 2 29401 #### [facility],[address] [place] [address] CBC + DIFF Normal [facility] Comment on above: Result Comment: CBC- COMPLETE BLOOD COUNT Performed By: #### 2 [id number] #### [facility],[address] [place] [address] EO # 0.04 x10EE3/UL Normal 0.00 - 0.50 [facility] Comment on above: Performed By: #### 2 30893 #### [facility],[address] [place] [address] Eosinophils/100 WBC (Bld) 1.0 % Normal 0.0 - 7.0 [facility] Comment on above: Performed By: #### 2 10387 #### [facility],[address] [place], [place] [id number] Erythrocyte distribution width (RBC) [Ratio] 14.3 % Normal 12.0 - 15.6 [facility] Comment on above: Performed By: #### 2 74272 #### [facility],[address] [place] [address] Hematocrit (Bld) [Volume fraction] 34.1 % Low 40.0 - 52.0 [facility] Comment on above: Performed By: #### 2 49507 #### [facility],[address] [place] [address] Hemoglobin (Bld) [Mass/Vol] 12.1 g/dL Low 13.0 - 17.5 [facility] Comment on above: Performed By: #### 2 16640 #### [facility],[address] [place] [address] Lymph # 1.66 x10EE3/UL Normal 0.80 - 2.80 [facility] Comment on above: Performed By: #### 2 08482 #### [facility],[address] [place] [address] Lymphocytes/100 WBC (Bld) 35.5 % Normal 20.0 - 45.0 [facility] Comment on above: Performed By: #### 2 89112 #### [facility],[address] [place], [place] [id number] MANUAL DIFF N/A Normal [facility] Comment on above: Performed By: #### 2 67760 #### [facility],[address] [place], [place] [phone] MCH (RBC) [Entitic mass] 31 pg Normal 27 - 33 [facility] Comment on above: Performed By: #### 2 63506 #### [facility],[address] [place], [place] [id number] MCHC 36 X10 3 Normal 32 - 36 [facility] Comment on above: Performed By: #### 2 32375 #### [facility],[address] [place] [address] MCV (RBC) [Entitic vol] 86 fL Normal 81 - 98 [facility] Comment on above: Performed By: #### 2 71316 #### [facility],[address],[place] [address] Levy # 0.45 x10EE3/UL Normal 0.20 - 1.00 [facility] Comment on above: Performed By: #### 2 25211 #### [facility],[address] [place] [address] MONOS % 9.7 % Normal 0.0 - 10.0 [facility] Comment on above: Performed By: #### 2 78544 #### [facility],[address] [place] [address] Morphology Scott (Bld) [Interp] N/A Normal [facility] Comment on above: Performed By: #### 2 12624 #### [facility],[address] [place] [address] Neut # 2.51 x10EE3/UL Normal 1.50 - 7.10 [facility] Comment on above: Performed By: #### 2 56538 #### [facility],[address] [place] [address] Neutrophils/100 WBC (Bld) 53.5 % Normal 46.0 - 76.0 [facility] Comment on above: Performed By: #### 2 32078 #### [facility],[address] [place] [address] PLATELET 170 x10EE3/UL Normal 150 - 450 [facility] Comment on above: Performed By: #### 2 86846 #### [facility],[address] [place] [address] Platelet mean volume (Bld) [Entitic vol] 8.0 fL Normal 6.4 - 10.5 [facility] Comment on above: Result Comment: AUTO MATED DIFFERENTIAL Performed By: #### 2 83518 #### [facility],[address] [place] [address] 35995 RBC 3.97 x 10EE6/UL Low 4.50 - 6.00 [facility] Comment on above: Performed By: #### 2 39911 #### [facility],[address] [place] [address]3783 WBC 4.7 x 10EE3/UL Normal 4.5 - 10.8 [facility] Comment on above: Performed By: #### 2 20323 #### [facility],[address] [place] [address] CHEST 1 VIEWon 03-25-2025 CHEST 1 VIEW [place] [address] Patient: STEPHANI ELIAS Phone#: : 1940 Age: 85 Gender: M Pt. Type: ER Account: [id number] Location: [facility] Ordering: TREVOR SAMANIEGO Exam Date: 03/25/2025/12:44 Family Phys: JERILYN SWANSON Charge Code: 902360 Physician: [place] Order #: [id number] Dose#: PROCEDURE: X-RAY CHEST 1 VIEW COMPARISON: [facility], XR, CHEST 1 VIEW, 07/11/2024, 12:30. INDICATIONS: Weakness. FINDINGS: LUNGS: Normal. No significant pulmonary parenchymal abnormalities. VASCULATURE: Normal. Unremarkable pulmonary vasculature. CARDIAC: Normal. No cardiac silhouette abnormality or cardiomegaly. MEDIASTINUM: Coronary artery calcifications PLEURA: Calcification at the left hemidiaphragm. BONES: Median sternotomy wires are present. OTHER: Negative. CONCLUSION: No acute disease. Dictated by: Lisa Kenney MD on 03/25/2025 at 17:25 Approved by: Lisa Kenney MD on 03/25/2025 at 17:28 Normal [facility] CMP with eGFRon 03-25-2025 AGE 85 years Normal [facility] Comment on above: Performed By: #### 2 29509 ####[facility],[address] [place] [address] 69991 Albumin [Mass/Vol] 3.6 g/dL Normal 3.4 - 5.0 [facility] Comment on above: Performed By: #### 2 27395 ####[facility],[address] [place] [address]506 Albumin/Globulin [Mass ratio] 1.2 {ratio} Normal 0.9 - 1.6 [facility] Comment on above: Performed By: #### 2 83524 ####[facility],[address] [place] [address] 53842 ALK PHOS 76 U/L Normal 46 - 116 [facility] Comment on above: Performed By: #### 2 15580 ####[facility],[address] [place] [address] 89448 ALT [Catalytic activity/Vol] 17 U/L Normal 16 - 63 [facility] Comment on above: Performed By: #### 2 91709 ####[facility],[address] [place] [address] 26701 Anion gap [Moles/Vol] 11 mmol/L Normal 10 - 20 [facility] Comment on above: Performed By: #### 2 26570 ####[facility],[address] [place] [address] 95373 AST [Catalytic activity/Vol] 14 U/L Low 15 - 37 [facility] Comment on above: Performed By: #### 2 56567 ####[facility],[address] [place] [address] 55859 B/C RATIO 21 ratio Normal 0 - 30 [facility] Comment on above: Performed By: #### 2 00278 ####[facility],[address] [place] [address] 07858 Bilirubin [Mass/Vol] 1.1 mg/dL High 0.2 - 1.0 [facility] Comment on above: Performed By: #### 2 50539 ####[facility],[address] [place] [address] 52682 Calcium [Mass/Vol] 9.4 mg/dL Normal 8.5 - 10.1 [facility] Comment on above: Performed By: #### 2 80855 ####[facility],[address] [place] [address] 87365 Chloride [Moles/Vol] 105 mmol/L Normal 98 - 107 [facility] Comment on above: Performed By: #### 2 41847 ####[facility],[address] [place] [address] 87631 CMP with eGFR Normal [facility] Comment on above: Result Comment: COMP REHENSIVE METABOLIC PANEL Performed By: #### 2 51507 ####[facility],[address] [place] [address] 83635 CO2 [Moles/Vol] 26.3 mmol/L Normal 21.0 - 32.0 [facility] Comment on above: Performed By: #### 2 82680 ####[facility],[address] [place] [address] 79236 Creatinine [Mass/Vol] 1.25 mg/dL Normal 0.70 - 1.30 [facility] Comment on above: Performed By: #### 2 98618 ####[facility],[address] [place] [address] 47964 eGFR 55 ML/MINUTE Low 60 - 999 [facility] Comment on above: Performed By: #### 2 30625 ####[facility],[address] [place] [address] 73065 GFR/1.73 sq M.predicted among non-blacks MDRD (S/P/Bld) [Vol rate/Area] mL/min/{1.73_m2} Normal 60 - 999 [facility] Comment on above: Result Comment: ACCO RDING TO THE NATIONAL KIDNEY DISEASE EDUCATION PROGRAM(NKDE), A NORMAL eGFR IS A VALUE GREATER THAN OR EQUAL TO 60 ML/MIN/1.73 SQ METERS. CHRONIC KIDNEY DISEASE: <60mL/MIN/1.73 SQ METERS KIDNEY FAILURE: <15mL/MIN/1.73 SQ METERS THIS TEST SHOULD ONLY BE USED FOR PATIENTS 18 YEARS OF AGE AND OLDER. Performed By: #### 2 64899 ####[facility],[address] [place] [address] 26087 Globulin (S) [Mass/Vol] 2.9 g/dL Normal 1.5 - 3.8 [facility] Comment on above: Performed By: #### 2 94747 ####[facility],[address] [place] [address] 67327 Glucose [Mass/Vol] 95 mg/dL Normal 74 - 106 [facility] Comment on above: Performed By: #### 2 46074 ####[facility],[address] [place] [address] 95862 Potassium [Moles/Vol] 4.3 mmol/L Normal 3.5 - 5.1 [facility] Comment on above: Performed By: #### 2 81815 ####[facility],[address] [place] [address] 28461 Protein [Mass/Vol] 6.5 g/dL Normal 6.4 - 8.2 [facility] Comment on above: Performed By: #### 2 12198 ####[facility],[address] [place] [address] 39237 Sodium [Moles/Vol] 138 mmol/L Normal 136 - 145 [facility] Comment on above: Performed By: #### 2 24072 ####[facility],[address] [place] [address] 37687 Urea nitrogen [Mass/Vol] 26 mg/dL High 7 - 18 [facility] Comment on above: Performed By: #### 2 93031 ####[facility],[address] [place] [address] 47816 TROPONINon 03-25-2025 HS TROPONIN 10.5 pg/mL Normal 0.0 - 76.2 [facility] Comment on above: Performed By: #### 2 28820 #### [facility],[address] [place] [address] 65500 URINALYSISon 03-25-2025 Amorphous NONE Normal [facility] Comment on above: Performed By: #### 2 86269 #### [facility],[address] [place] [address] 77426 Bacteria NONE Normal [facility] Comment on above: Performed By: #### 2 09590 #### [facility],[address] [place] [address] 79270 Bilirubin Ql (U) Negative Normal NORMAL: NEGATIVE [facility] Comment on above: Performed By: #### 2 56768 #### [facility],[address] [place] [address] 88105 Casts NONE Normal [facility] Comment on above: Performed By: #### 2 50574 #### [facility],[address] [place] [address] 86029 Clarity (U) clear Normal NORMAL: CLEAR [facility] Comment on above: Performed By: #### 2 86491 #### [facility],[address] [place] [address] 99562 Color (U) p.yel Normal NORMAL: YELLOW [facility] Comment on above: Performed By: #### 2 67826 #### [facility],[address] [place] [address] 36482 Crystals LM Nom (Urine sed) NONE Normal [facility] Comment on above: Performed By: #### 2 85674 #### [facility],[address] [place] [address] 09391 Epi Cells NONE Normal [facility] Comment on above: Performed By: #### 2 08363 #### [facility],[address] [place] [address] 28205 Glucose Ql (U) NORM Normal NORMAL: NORMAL [facility] Comment on above: Performed By: #### 2 [id number] #### [facility],[address] [place] [address] [id number] Hemoglobin Ql (U) 25 Abnormal NORMAL: NEGATIVE [facility] Comment on above: Performed By: #### 2 19888 #### [facility],[address] [place] [address] 43261 Ketone Negative Normal NORMAL: NEGATIVE [facility] Comment on above: Performed By: #### 2 79344 #### [facility],[address] [place] [address] 22330 Leukocytes Negative Normal NORMAL: NEGATIVE [facility] Comment on above: Performed By: #### 2 33519 #### [facility],[address] [place] [address] Mucous NONE Normal [facility] Comment on above: Performed By: #### 2 60296 #### [facility],[address] [place] [address] Nitrite Ql (U) Negative Normal NORMAL: NEGATIVE [facility] Comment on above: Performed By: #### 2 73753 #### [facility],[address] [place] [address] pH (U) 6 [pH] Normal NORMAL: 5.0-8.0 [facility] Comment on above: Performed By: #### 2 35370 #### [facility],[address] [place] [address] Protein Ql (U) Negative Normal NORMAL: NEGATIVE [facility] Comment on above: Performed By: #### 2 00448 #### [facility],[address] [place] [address] Rbc 0-5 Normal 0-3/hpf [facility] Comment on above: Performed By: #### 2 39393 #### [facility],[address] [place] [address] 71752 Sp [place] 1.010 Normal NORMAL: 1.010-1.030 [facility] Comment on above: Performed By: #### 2 28174 #### [facility],[address] [place] [address] Specimen Type R Normal [facility] Comment on above: Performed By: #### 2 44646 #### [facility],[address] [place], [place] [id number] Urinalysis dipstick W Reflex Microscopic panel (U) SEE BELOW Normal [facility] Comment on above: Result Comment: MICR OSCOPIC Performed By: #### 2 78276 #### [facility],[address] [place] [address] Urobilinog NORM Normal NORMAL: NORMAL [facility] Comment on above: Performed By: #### 2 26177 #### [facility],[address] [place] [address] Wbc NONE Normal 0-5/hpf [facility] Comment on above: Performed By: #### 2 04243 #### [facility],[address] [place] [address] Yeast NONE Normal [facility] Comment on above: Performed By: #### 2 90055 #### [facility],[address] [place] [address] [facility] Telephone (NIQ) STEPHANI ELIAS ([id number]) 1940 M Date Time Provider Department 02/23/25 ROBERTO LOUIS During your visit today, we recorded the following information about you: Mini Perales 02/23/2025 8:52 AM Signed Called patient to schedule an appointment with Dr. Louis from a referral we received LMTCO Nela Adkins MA 02/23/2025 10:14 AM Signed Patients son called back and scheduled patient on 04/05/2025 at 1:30 pm. Nela Adkins MA Allergies As of Date: 02/23/2025 Noted Allergy Reaction AMOXICILLIN 09/21/2007 PENICILLINS 09/21/2007 Date Reviewed: 09/30/2012 Reviewed by: Zhane Lawrence Ma - Fully Assessed Reason for Visit: Appointment [186] Prescriptions as of 02/23/2025 - finasteride (PROSCAR) 5 mg tablet take 1 tablet daily - Terazosin HCl (HYTRIN) 10 mg capsule Take 1 capsule by mouth once daily. - rosuvastatin (CRESTOR) 40 mg ORAL tablet 1 tablet daily - docusate calcium 240 mg ORAL capsule 1 capsule po at bedtime - metoprolol tartrate 50 mg ORAL tablet 1 tablet two timws daily po - aspirin(ADULT LOW DOSE ASPIRIN 81 MG TAB, DELAYED RELEASE) Take one(1) tablet daily. - clopidogrel bisulfate(PLAVIX 75 MG TAB) Take one(1) tablet daily. 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 Type: Out Account: [id number] Location: [facility] Ordering: KATELYNN LEMONS Exam Date: 02/21/2025/10:52 Family Phys: JERILYN SWANSON Charge Code: [id number] Physician: [place] Order #: [id number] Dose#: PROCEDURE: ECHOCARDIOGRAM WITH DOPPLER AND COLOR FLOW HISTORY: Patient is an 85-year-old male with history of CAD INDICATIONS: CAD COMPARISON: None. TECHNIQUE: A 2-D ultrasound, color spectral Doppler and M-mode evaluation of the heart and great vessels. PATIENT MEASUREMENTS: Height (in.): 67 BSA: 1.8 Weight (lbs.): 160 BP: 108/63 Turn Supervisor: JUAN LUIS M MODE 2D MEASUREMENTS AND CALCULATIONS: LVIDd: 4.39 cm LVIDs: 3.07 cm IVSd: 1.25 cm LVPWd: 1.09 cm LVOT diam: 2.03 cm FS: 29.89 % Ao Root diam: 3.77 cm LA diam: 4.9 cm LA Volume Index: 43 ml/m2 LA A4 Area: 24.04 cm2 RA A4 Area: 21.4 cm2 RVDd: 3.95 cm TAPSE: 18 mm DOPPLER MEASUREMENTS AND CALCULATIONS MITRAL MV E MAX matthew: 0.90 m/s MV A MAX matthew: 0.29 m/s MV E-A ratio: 3.06 MVA VTI 1.75 cm2 MV V2 max: 1.10 m/s MV max P.83 mm[Hg] Continued Report - Page 2 of 3 Patient: STEPHANI ELIAS Phone#: : 1940 Age: 85 Gender: M Pt. Type: Out Account: [id number] Location: [facility] Ordering: KATELYNN LEMONS Exam Date: 02/21/2025/10:52 Family Phys: JERILYN SWANSON Charge Code: [id number] Physician: [place] Order #: [id number] Dose#: MV V2 mean: 0.49 m/s MV mean P.40 mm[Hg] MV V2 VTI: 33.76 cm Lat Peak E' Matthew 11 cm/sec Septal Peak E' MATTHEW 8 cm/sec E/E' lateral 8 E/E' medial 11 AORTIC Ao V2 max: 1.71 m/s Ao max P.65 mm[Hg] Ao V2 mean: 1.07 m/s Ao mean P.46 mm[Hg] Ao V2 VTI: 30.08 cm AUTUMN (V Max): 1.59 cm2 AUTUMN (VTI): 1.97 cm2 AI max matthew 2.71 m/s AI max PG 29.33 mm[Hg] AI dec [place] 1.14 m/s2 AI PHT 691.57 ms LV V1 Max 0.84 m/s LV V1 Max PG 2.82 mm[Hg] LV V1 Mean PG 1.56 mm[Hg] LV V1 mean 0.58 m/s LV V1 VTI 18.34 cm PULMONIC PA V2 Max 0.99 m/s PA Max PG 3.90 mm[Hg] TRICUSPID TR Max Matthew 2.27 m/s TR max PG 21 mm[Hg] RVSP 24 mm Hg 2D/M-MODE AND COLOR FLOW LEFT VENTRICLE: Left ventricle is normal in size and thickness. Systolic ejection fraction is 60-65%. There are no regional wall motion abnormality seen. Cannot assess diastolic function due to EA fusion and MAC WALL MOTION: 1 - Basal anterior: Normal. 7 - Mid anterior: Normal. 13 - Apical anterior: Normal. 2 - Basal anteroseptal: Normal. 8 - Mid anteroseptal: Normal. 14 - Apical septal: Normal. 3 - Basal inferoseptal: Normal. 9 - Mid inferoseptal: Normal. 15 - Apical inferior: Normal. 4 - Basal inferior: Normal. 10-Mid inferior: Normal. 16 - Apical lateral: Normal. 5 - Basal inferolateral: Normal. 11-Mid inferolateral: Normal. Continued Report - Page 3 of 3 Patient: STEPHANI ELIAS Phone#: : 1940 Age: 85 Gender: M Pt. Type: Out Account: [id number] Location: [facility] Ordering: KATELYNN LEMONS Exam Date: 02/21/2025/10:52 Family Phys: JERILYN KIKI Charge Code: [id number] Physician: [place] Order #: [id number] Dose#: 6 - Basal anterolateral: Normal. 12-Mid anterolateral: Normal. RIGHT VENTRICLE: Right ventricle is normal in size and systolic function. LEFT ATRIUM: Left atrium is moderately enlarged. RIGHT ATRIUM: Right atrium is mildly enlarged. ATRIAL SEPTUM: Inadequately visualized. MITRAL VALVE: There is moderate mitral annular calcification seen. Mitral valve leaflets have fibrocalcific changes. There is mild regurgitation and no stenosis seen. TRICUSPID VALVE: Tricuspid valve is normal structure. There is mild regurgitation no stenosis seen. AORTIC VALVE: Aortic valve is trileaflet with mild calcification. There is mild aortic valve stenosis and mild regurgitation seen PULMONIC VALVE: Pulmonic valve is inadequately visualized. Doppler shows no significant regurgitation or stenosis. AORTIC ROOT: Aortic root is normal in size. Proximal ascending aorta is dilated 3.9 cm AORTIC ARCH: Inadequately visualized DESC THORACIC AORTA: Inadequately visualized IVC/SVC: IVC is normal size with more than 50% collapse of inspiration. Estimated atrial pressure is 3 mm Hg PULMONARY VEINS: Inadequate Doppler. PERICARDIUM: There is no pericardial effusion seen. CONCLUSION: 1. Left ventricle is normal in size and thickness. Systolic ejection fraction is 60-65% with normal wall motion 2. Left atrium is moderately enlarged. Right atrium is mildly enlarged 3. There is moderate mitral annular calcification seen. Mitral valve leaflets have fibrocalcific changes. There is mild regurgitation and no stenosis seen. 4. There is mild tricuspid valve regurgitation seen 5. Aortic valve is trileaflet with mild calcifica (more content not included)... [facility] Letter Text Normal [facility] CNCOon 09-21-2024 CNCO Letter Text Normal [facility] EMERGENCY REPORTon 4 EMERGENCY REPORT [facility] EMERGENCY ROOM REPORT NAME ACCOUNT SEX AGE ADMIT DISCHARGE PT MED. RECORD# NUMBER DATE DATE TYPE LENNOX [id number] Radha 84 07/11/24 2 STEPHANI Nguyen [id number] ROOM: ER DATE OF : 1940 DICTATING PHYSICIAN: Renny Dietrich CHIEF COMPLAINT: Increasing weakness and fatigue. HISTORY OF PRESENT ILLNESS: The patient had been admitted to the hospital a couple of weeks ago with hyponatremia. He states that he did feel noticeably improved after going home. He had a follow-up appointment with Dr. Swanson last week, and seemed to be relatively good then. However, over the past several days, and particularly since yesterday, he has become increasingly weak and fatigued to the point that today it was difficult for him to get up and ambulate. He was able to get up and get himself a small amount of breakfast, which he ate, but he states that he is just markedly fatigued. He has had not had fever or chills, somewhat poor appetite. PAST MEDICAL HISTORY: All unchanged from review of his hospital chart just from about 10 days ago. FAMILY HISTORY: All unchanged from review of his hospital chart just from about 10 days ago. SOCIAL HISTORY: All unchanged from review of his hospital chart just from about 10 days ago. REVIEW OF SYSTEMS: All unchanged from review of his hospital chart just from about 10 days ago. He has not fallen. He is not having any urinary symptoms. He does not feel short of breath. No chest pain. PHYSICAL EXAMINATION: GENERAL: This is an 84-year-old male alert, appropriate, pleasant, and does not appear toxic or in any acute distress. SKIN: His skin is slightly pale, pink, warm, and dry. HEENT: Head and scalp are normal. HEENT exam are all unremarkable. NECK: His neck is supple. LUNGS: Lungs are clear. CARDIAC: Cardiac exam is regular rhythm without ectopy or murmurs. ABDOMEN: Abdomen is soft and nontender. EXTREMITIES: Good peripheral pulses. No redness or asymmetry. Capillary refill is about 1 to 2 seconds. VITAL SIGNS: Returned showing a temperature of 98.1, pulse 63, respirations 17, and blood pressure 115/61. DIAGNOSTIC DATA: EKG did not show any acute findings. CBC: White count is 4900 with a normal differential, H&H 11 and 31.7. Laboratories: His Page 1 of 2 STEPHANI ELIAS Emergency Room Report STEPHANI ELIAS : 1940 sodium was 131, CO2 26. His BUN and creatinine are 19 and 1.3, which are noticeably higher than his renal function from just a week and a half ago, at which point, his BUN and creatinine were 15 and 1.16. Troponin is 36, a repeat was 57. BNP was 662. Urinalysis showed 0 WBC and 0 to 5 RBC. EMERGENCY DEPARTMENT COURSE AND TREATMENT: The patient was placed on a monitor. Of note, he did at times develop a significant bradycardia as getting as low into the upper 30s; although, blood pressure stayed over 100 systolic with this. DIAGNOSES: 1. Increasing weakness. 2. Dehydration with mild acute kidney injury. 3. Moderate bradycardia. PLAN/DISPOSITION: I discussed with Dr. Montiel, who will admit to observation for further management and evaluation. Dictated By: Renny Dietrich MD 07/11/24 16:01 JOB #: [id number] Transcribed By: am 07/11/24 16:30 Electronically signed by: LIDA Dietrich M.D. 07/15/24 07:08 Page 2 of 2 STEPHANI ELIAS Emergency Room Report Normal [facility] BMP with eGFR DAILYon 2023 AGE 84 years Normal [facility] Comment on above: Performed By: #### 2 64339 #### [facility],[address] [place] [address] 30012 Anion gap [Moles/Vol] 16 mmol/L Normal 10 - 20 [facility] Comment on above: Performed By: #### 2 10237 #### [facility],[address] [place] [address] 11100 BMP with eGFR DAILY Normal [facility] Comment on above: Result Comment: BASI C METABOLIC PANEL Performed By: #### 2 50418 #### [facility],[address] [place] [address] 15150 Calcium [Mass/Vol] 9.1 mg/dL Normal 8.5 - 10.1 [facility] Comment on above: Performed By: #### 2 88626 #### [facility],[address] [place] [address] 91676 Chloride [Moles/Vol] 102 mmol/L Normal 98 - 107 [facility] Comment on above: Performed By: #### 2 35590 #### [facility],[address] [place] [address] 79500 CO2 [Moles/Vol] 23.2 mmol/L Normal 21.0 - 32.0 [facility] Comment on above: Performed By: #### 2 44550 #### [facility],[address] [place] [address] 35592 Creatinine [Mass/Vol] 1.05 mg/dL Normal 0.70 - 1.30 [facility] Comment on above: Performed By: #### 2 00512 #### [facility],[address] [place] [address] 49111 GFR/1.73 sq M.predicted among non-blacks MDRD (S/P/Bld) [Vol rate/Area] mL/min/{1.73_m2} Normal 60 - 999 [facility] Comment on above: Performed By: #### 2 09600 #### [facility],[address] [place] [address] 30854 Result Comment: ACCO RDING TO THE NATIONAL KIDNEY DISEASE EDUCATION PROGRAM(NKDE), A NORMAL eGFR IS A VALUE GREATER THAN OR EQUAL TO 60 ML/MIN/1.73 SQ METERS. CHRONIC KIDNEY DISEASE: <60mL/MIN/1.73 SQ METERS KIDNEY FAILURE: <15mL/MIN/1.73 SQ METERS THIS TEST SHOULD ONLY BE USED FOR PATIENTS 18 YEARS OF AGE AND OLDER. Glucose [Mass/Vol] 97 mg/dL Normal 74 - 106 [facility] Comment on above: Performed By: #### 2 40501 #### [facility],[address] [place] [address] Potassium [Moles/Vol] 4.5 mmol/L Normal 3.5 - 5.1 [facility] Comment on above: Performed By: #### 2 51707 #### [facility],[address] [place] [address] 10365 Sodium [Moles/Vol] 137 mmol/L Normal 136 - 145 [facility] Comment on above: Performed By: #### 2 78270 #### [facility],[address] [place], [place] [address] Urea nitrogen [Mass/Vol] 17 mg/dL Normal 7 - 18 [facility] Comment on above: Performed By: #### 2 37095 #### [facility],[address] [place] [address] 22325 CBC DAILYon 07-12-2024 Baso # 0.01 x10EE3/UL Normal 0.00 - 0.10 [facility] Comment on above: Performed By: #### 2 26510 #### [facility],[address] [place] [address] 66308 Basophils/100 WBC (Bld) 0.2 % Normal 0.0 - 2.0 [facility] Comment on above: Performed By: #### 2 94868 #### [facility],[address] [place] [address] 12183 EO # 0.16 x10EE3/UL Normal 0.00 - 0.50 [facility] Comment on above: Performed By: #### 2 14646 #### [facility],[address] [place] [address] Eosinophils/100 WBC (Bld) 2.9 % Normal 0.0 - 7.0 [facility] Comment on above: Performed By: #### 2 73534 #### [facility],[address] [place] [address] Erythrocyte distribution width (RBC) [Ratio] 15.3 % Normal 12.0 - 15.6 [facility] Comment on above: Performed By: #### 2 99331 #### [facility],[address] [place] [address] Hematocrit (Bld) [Volume fraction] 36.4 % Low 40.0 - 52.0 [facility] Comment on above: Performed By: #### 2 24282 #### [facility],[address] [place] [address] Hemoglobin (Bld) [Mass/Vol] 11.8 g/dL Low 13.0 - 17.5 [facility] Comment on above: Performed By: #### 2 97790 #### [facility],[address] [place] [address] Lymph # 1.66 x10EE3/UL Normal 0.80 - 2.80 [facility] Comment on above: Performed By: #### 2 32413 #### [facility],[address] [place], [place] [address] Lymphocytes/100 WBC (Bld) 30.0 % Normal 20.0 - 45.0 [facility] Comment on above: Performed By: #### 2 76403 #### [place] [id number] MANUAL DIFF N/A Normal [facility] Comment on above: Performed By: #### 2 49204 #### [place] [address] MCH (RBC) [Entitic mass] 28 pg Normal 27 - 33 [facility] Comment on above: Performed By: #### 2 84590 #### [place] [address] MCHC 32 X10 3 Normal 32 - 36 [facility] Comment on above: Performed By: #### 2 44364 #### [place] [address] MCV (RBC) [Entitic vol] 86 fL Normal 81 - 98 [facility] Comment on above: Performed By: #### 2 14969 #### [place] [address] Levy # 0.65 x10EE3/UL Normal 0.20 - 1.00 [facility] Comment on above: Performed By: #### 2 57924 #### [place] [address] MONOS % 11.8 % High 0.0 - 10.0 [facility] Comment on above: Performed By: #### 2 96513 #### [place] [address] Morphology Scott (Bld) [Interp] N/A Normal [facility] Comment on above: Performed By: #### 2 00558 #### [place] [address] Neut # 3.04 x10EE3/UL Normal 1.50 - 7.10 [facility] Comment on above: Performed By: #### 2 14749 #### [place] [address] Neutrophils/100 WBC (Bld) 55.1 % Normal 46.0 - 76.0 [facility] Comment on above: Performed By: #### 2 79146 #### [place] [address] PLATELET 242 x10EE3/UL Normal 150 - 450 [facility] Comment on above: Performed By: #### 2 72982 #### [facility],[address] [place] [address] 61925 Platelet mean volume (Bld) [Entitic vol] 6.9 fL Normal 6.4 - 10.5 [facility] Comment on above: Result Comment: AUTO MATED DIFFERENTIAL Performed By: #### 2 49426 #### [facility],[address] [place] [address] 16678 RBC 4.25 x 10EE6/UL Low 4.50 - 6.00 [facility] Comment on above: Performed By: #### 2 72815 #### [facility],[address] [place] [address] 11576 WBC 5.5 x 10EE3/UL Normal 4.5 - 10.8 [facility] Comment on above: Performed By: #### 2 31797 #### [facility],[address] [place] [address] 57904 CV ECHO COMPLETE CV ECHO COMPLETE [place] [address] Patient: STEPHANI ELIAS Phone#: : 1940 Age: 84 Gender: M Pt. Type: Out Account: [id number] Location: 010 Ordering: RODERICK MONTIEL Exam Date: 07/12/2024/7:10 Family Phys: JERILYN SWANSON Charge Code: [id number] Physician: [place] Order #: [id number] Dose#: PROCEDURE: ECHOCARDIOGRAM WITH DOPPLER AND COLOR FLOW HISTORY: Patient is an 84-year-old male with history of AFib and chest pain INDICATIONS: Hypotension COMPARISON: None. TECHNIQUE: A 2-D ultrasound, color spectral Doppler and M-mode evaluation of the heart and great vessels. PATIENT MEASUREMENTS: Height (in.): 67 BSA: 1.9 Weight (lbs.): 174 BP: 156/83 Turn Supervisor: GREY M MODE 2D MEASUREMENTS AND CALCULATIONS: LVIDd: 4.62 cm LVIDs: 3.27 cm IVSd: 1.21 cm LVPWd: 1.16 cm LVOT diam: 2.1 cm FS: 29.14 % Ao Root diam: 3.81 cm LA diam: 4.9 cm LA Volume Index: 47 ml/m2 LA A4 Area: 28.39 cm2 RA A4 Area: 18.8 cm2 RVDd: 3.70 cm TAPSE: 19 mm DOPPLER MEASUREMENTS AND CALCULATIONS MITRAL MV E MAX matthew: 1.43 m/s MV A MAX matthew: 0.48 m/s MV E-A ratio: 3.00 ERO: 0.26 cm2 Reg Vol 48.03 ml Lat Peak E' Matthew Septal Peak E' MATTHEW Continued Report - Page 2 of 3 Patient: STEPHANI ELIAS Phone#: : 1940 Age: 84 Gender: M Pt. Type: Out Account: [id number] Location: [facility] Ordering: RODERICK MONTIEL Exam Date: 07/12/2024/7:10 Family Phys: JERILYN SWANSON Charge Code: [id number] Physician: [place] Order #: [id number] Dose#: AORTIC Ao V2 max: 1.71 m/s Ao max P.71 mm[Hg] Ao V2 mean: 1.17 m/sec Ao mean P.05 mm Hg Ao V2 VTI: 31.0 cm LV V1 Max 0.90 m/s LV V1 Max PG 3.24 mm[Hg] LV V1 Mean PG 1.72 mm Hg LV V1 mean 0.62 m/sec LV V1 VTI 18.1 cm PULMONIC PA V2 Max 1.20 m/s PA Max PG 5.78 mm[Hg] TRICUSPID TR Max Matthew 3.16 m/s TR max PG 40 mm[Hg] RVSP 48 mm Hg 2D/M-MODE AND COLOR FLOW LEFT VENTRICLE: Left ventricle is normal in size and thickness. Systolic ejection fraction is 50-55%. There are no regional wall motion abnormality seen. WALL MOTION: 1 - Basal anterior: Normal. 7 - Mid anterior: Normal. 13 - Apical anterior: Normal. 2 - Basal anteroseptal: Normal. 8 - Mid anteroseptal: Normal. 14 - Apical septal: Normal. 3 - Basal inferoseptal: Normal. 9 - Mid inferoseptal: Normal. 15 - Apical inferior: Normal. 4 - Basal inferior: Normal. 10-Mid inferior: Normal. 16 - Apical lateral: Normal. 5 - Basal inferolateral: Normal. 11-Mid inferolateral: Normal. 6 - Basal anterolateral: Normal. 12-Mid anterolateral: Normal. RIGHT VENTRICLE: Right ventricle is normal in size and systolic function LEFT ATRIUM: Left atrium is moderately enlarged. RIGHT ATRIUM: Right atrium is normal in size ATRIAL SEPTUM: Inadequately visualized MITRAL VALVE: There is moderate mitral annular calcification seen. Mitral valve leaflets appear mildly thickened. There is moderate centrally directed mitral valve regurgitation. There is no stenosis seen. TRICUSPID VALVE: Tricuspid valve is normal structure. There is mild regurgitation and no stenosis seen. AORTIC VALVE: Aortic valve is trileaflet and moderately calcified. Leaflets appear restricted mobility. There is mild aortic valve stenosis and mild regurgitation seen. PULMONIC VALVE: Pulmonic valve is inadequately visualized Continued Report - Page 3 of 3 Patient: STEPHANI ELIAS Phone#: : 1940 Age: 84 Gender: M Pt. Type: Out Account: [id number] Location: [facility] Ordering: RODERICK MONTIEL Exam Date: 07/12/2024/7:10 Family Phys: JERILYN SWANSON Charge Code: [id number] Physician: [place] Order #: [id number] Dose#: AORTIC ROOT: Aortic root is mildly enlarged at 3.8 cm AORTIC ARCH: Inadequately visualized DESC THORACIC AORTA: Inadequately visualized IVC/SVC: IVC is dilated more than 50% collapse of inspiration. Estimated atrial pressure is 8 mm Hg PERICARDIUM: There is no pericardial effusion seen. CONCLUSION: 1. Left ventricle is normal in size and thickness. Systolic ejection fraction 50-55% with normal wall motion. 2. Left atrium is moderately enlarged. 3. There is moderate mitral annular calcification seen and moderate centrally directed mitral valve regurgitation 4. Aortic valve is trileaflet with moderate calcification. There is mild aortic valve stenosis and no regurgitation seen. 5. There is mild tricuspid valve regurgitation seen 6. Right ventricle is normal in size and systolic function. 7. Estimated with systolic pressure is 48 mm Hg. Dictated by: MARY DOLL MD on 07/12/2024 at 8:30 Approved by: MARY DOLL MD on 07/12/2024 at 8:48 Normal [facility] LIPID PROFILEon 07-12-2024 Cholesterol [Mass/Vol] 110 mg/dL Normal 0 - 240 [facility] Comment on above: Performed By: #### 2 16374 #### [facility],[address] [place] [address] 88633 Cholesterol in HDL [Mass/Vol] 61 mg/dL High 40 - 60 [facility] Comment on above: Performed By: #### 2 86541 #### [facility],[address] [place] [address] 83801 Cholesterol in LDL [Mass/Vol] 42 mg/dL Normal 0 - 129 [facility] Comment on above: Performed By: #### 2 02340 #### [facility],[address] [place] [address] 60687 Cholesterol.total/Cho lesterol in HDL [Mass ratio] 1.8 {ratio} Normal 0.0 - 5.0 [facility] Comment on above: Performed By: #### 2 71022 #### [facility],[address] [place] [address] 09823 Lipid 1996 panel Normal [facility] Comment on above: Result Comment: LIPI D PROFILE Performed By: #### 2 58826 #### [facility],[address] [place] [address] 49644 Triglyceride [Mass/Vol] 37 mg/dL Normal 0 - 150 [facility] Comment on above: Performed By: #### 2 92350 #### [facility],[address] [place] [address] 20879 MAGNESIUM DAILYon 07-12-2024 Magnesium [Mass/Vol] 1.9 mg/dL Normal 1.8 - 2.4 [facility] Comment on above: Performed By: #### 2 35321 #### [facility],[address] [place] [address] 14717 [place] CARDIAC STRESS (SPECT) W/ LEXISCANon 07-12-2024 NM CARDIAC STRESS (SPECT) W/LEXISCAN [address] [address] Patient: STEPHANI ELIAS Phone#: : 1940 Age: 84 Gender: M Pt. Type: Out Account: [id number] Location: [facility] Ordering: JERILYN MASTERMICHELLE Exam Date: 07/12/2024/8:19 Family Phys: Charge Code: [id number] Physician: [place] Order #: [id number] Dose#: PROCEDURE: CARDIAC STRESS SPECT WITH LEXISCAN HISTORY: Patient is an 84-year-old male with history of CAD COMPARISON: None. INDICATIONS: Chest pain TECHNIQUE: Resting and post Lexiscan stress SPECT images acquired in the horizontal long, vertical long and short axis views. Protocol: Lexiscan Duration: 0.4mg over 10 seconds Peak Heart Rate: 81 bpm, which is 60% of maximum predicted heart rate. Workload: not applicable REST DOSE: 11.9 mCi Sestamibi. STRESS DOSE: 34.2 mCi Sestamibi. INTERPRETATION: Resting Images: Resting images showed mild to moderate perfusion defect in the basal to distal inferior wall which improved with stress. There is mild perfusion defect in the basal to mid inferolateral and lateral mallory. There is subdiaphragmatic attenuation artifact seen in the inferolateral wall that may cause increased uptake. Post Lexiscan stress Images: Post Lexiscan images showed overall decreased uptake. Upon further correction, there is mild perfusion defect in the basal to mid inferolateral and lateral mallory mildly worse from resting images. SDS score is 3 Gated SPECT/wall motion: Gated SPECT showed calculated ejection fraction of 59%. There is abnormal postop septal wall motion seen. TID ratio is 1.1 CONCLUSION: 1. 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 2. Calculated ejection fraction is 59% with abnormal postop septal wall motion 3. TID ratio is normal. Continued Report - Page 2 of 2 Patient: STEPHANI ELIAS Phone#: : 1940 Age: 84 Gender: M Pt. Type: Out Account: [id number] Location: 010 Ordering: BUTROS LATOUKatie Exam Date: 07/12/2024/8:19 Family Phys: Charge Code: [id number] Physician: [place] Order #: [id number] Dose#: Dictated by: MARY DOLL MD on 07/12/2024 at 12:15 Approved by: MARY DOLL MD on 07/12/2024 at 12:27 Normal [facility] NM EXERCISE STRESS TEST (W/C ARDIAC STUDYon 07-12-2024 NM EXERCISE STRESS TEST (W/CARDIAC STUDY [place] [address] Patient: STEPHANI ELIAS Phone#: : 1940 Age: 84 Gender: M Pt. Type: Out Account: [id number] Location: 010 Ordering: BUTFIORDALIZA LATMICHELLE Exam Date: 07/12/2024/8:19 Family Phys: Charge Code: [id number] Physician: [place] Order #: [id number] Dose#: PROCEDURE: ELECTROCARDIOGRAM STRESS TEST HISTORY: Patient is an 84-year-old male with history of CAD COMPARISON: None. INDICATIONS: Chest pain TECHNIQUE: Electrocardiogram stress test was performed using the protocol listed below. STRESS RESULTS: Protocol: Lexiscan Duration: 0.4mg over 10 seconds Resting Heart Rate: 62 bpm. Resting Blood Pressure: 128/66 mmHg Peak Heart Rate: 81 which is 60% of maximum predicted heart rate With Lexiscan infusion blood pressure decreased to111/50 Workload: 1.00 METs. Symptoms with stress: Patient did not complain of any symptom with regadenoson. EKG Data EKG at Baseline: EKG at baseline showed atrial fibrillation 61 BPM. There are no ST or T-wave abnormality seen. EKG with Stress: EKG with stress showed atrial fibrillation at 81 BPM. There are no ST or T-wave changes from baseline to suggest inducible ischemia. CONCLUSION: 1. Patient did not complain of any symptoms with regadenoson. 2. Patient had normal physiologic response with stress 3. Stress EKG is negative for inducible ischemia 4. Nuclear images will be reported separately. Dictated by: MARY DOLL MD on 07/12/2024 at 12:12 Continued Report - Page 2 of 2 Patient: STEPHANI ELIAS Phone#: : 1940 Age: 84 Gender: M Pt. Type: Out Account: [id number] Location: [facility] Ordering: JERILYN SWANSON Exam Date: 07/12/2024/8:19 Family Phys: Charge Code: [id number] Physician: [place] Order #: [id number] Dose#: Approved by: MARY DOLL MD on 07/12/2024 at 12:15 Normal [facility] CBC + DIFFon 07-11-2024 Baso # 0.01 x10EE3/UL Normal 0.00 - 0.10 [facility] Comment on above: Performed By: #### 2 98148 ####[facility],[address] [place] [address] Basophils/100 WBC (Bld) 0.3 % Normal 0.0 - 2.0 [facility] Comment on above: Performed By: #### 2 32361 ####[place] [address] CBC + DIFF Normal [facility] Comment on above: Result Comment: CBC- COMPLETE BLOOD COUNT Performed By: #### 2 76108 ####[facility],[address] [place], [place] [address] EO # 0.11 x10EE3/UL Normal 0.00 - 0.50 [facility] Comment on above: Performed By: #### 2 23798 ####[facility],[address] [place] [address] 54157 Eosinophils/100 WBC (Bld) 2.2 % Normal 0.0 - 7.0 [facility] Comment on above: Performed By: #### 2 43241 ####[facility],[address] [place] [address] Erythrocyte distribution width (RBC) [Ratio] 15.2 % Normal 12.0 - 15.6 [facility] Comment on above: Performed By: #### 2 50903 ####[facility],[address] [place] [address] Hematocrit (Bld) [Volume fraction] 31.7 % Low 40.0 - 52.0 [facility] Comment on above: Performed By: #### 2 36579 ####[facility],[address] [place] [address] Hemoglobin (Bld) [Mass/Vol] 11.0 g/dL Low 13.0 - 17.5 [facility] Comment on above: Performed By: #### 2 46646 ####[facility],[address] [place] [address] Lymph # 1.05 x10EE3/UL Normal 0.80 - 2.80 [facility] Comment on above: Performed By: #### 2 21014 ####[facility],[address] [place] [address] Lymphocytes/100 WBC (Bld) 21.4 % Normal 20.0 - 45.0 [facility] Comment on above: Performed By: #### 2 69905 ####[facility],[address] [place] [address] MANUAL DIFF N/A Normal [facility] Comment on above: Performed By: #### 2 17917 ####[facility],[address] [place], [place] [address] MCH (RBC) [Entitic mass] 29 pg Normal 27 - 33 [facility] Comment on above: Performed By: #### 2 33041 ####[facility],[address] [place] [address] 43786 MCHC 35 X10 3 Normal 32 - 36 [facility] Comment on above: Performed By: #### 2 93018 ####[facility],[address] [place] [address] 29781 MCV (RBC) [Entitic vol] 85 fL Normal 81 - 98 [facility] Comment on above: Performed By: #### 2 81738 ####[facility],[address] [place] [address] 73579 Levy # 0.57 x10EE3/UL Normal 0.20 - 1.00 [facility] Comment on above: Performed By: #### 2 05485 ####[facility],[address] [place] [address] 71941 MONOS % 11.6 % High 0.0 - 10.0 [facility] Comment on above: Performed By: #### 2 97200 ####[facility],[address] [place] [address] 94194 Morphology Scott (Bld) [Interp] N/A Normal [facility] Comment on above: Performed By: #### 2 86148 ####[facility],[address] [place] [address] 20653 Neut # 3.16 x10EE3/UL Normal 1.50 - 7.10 [facility] Comment on above: Performed By: #### 2 34649 ####[facility],[address] [place] [address] 82975 Neutrophils/100 WBC (Bld) 64.5 % Normal 46.0 - 76.0 [facility] Comment on above: Performed By: #### 2 72848 ####[facility],[address] [place] [address] 14551 PLATELET 205 x10EE3/UL Normal 150 - 450 [facility] Comment on above: Performed By: #### 2 98162 ####[facility],[address] [place] [address] 01863 Platelet mean volume (Bld) [Entitic vol] 7.1 fL Normal 6.4 - 10.5 [facility] Comment on above: Result Comment: AUTO MATED DIFFERENTIAL Performed By: #### 2 59555 ####[facility],[address] [place] [address] 37349 RBC 3.75 x 10EE6/UL Low 4.50 - 6.00 [facility] Comment on above: Performed By: #### 2 07647 ####[facility],[address] [place] [address] 22963 WBC 4.9 x 10EE3/UL Normal 4.5 - 10.8 [facility] Comment on above: Performed By: #### 2 89721 ####[facility],[address] [place] [address] 77994 CHEST 1 VIEWon 07-11-2024 CHEST [address] [address] Patient: STEPHANI ELIAS Phone#: : 1940 Age: 84 Gender: M Pt. Type: ER Account: [id number] Location: [facility] Ordering: RENNY DIETRICH Exam Date: 07/11/2024/12:30 Family Phys: JERILYN SWANSON Charge Code: [id number] Physician: [place] Order #: [id number] Dose#: PROCEDURE: X-RAY CHEST 1 VIEW COMPARISON: [facility], XR, CHEST 1 VIEW, 06/30/2024, 1:04. INDICATIONS: Cough. FINDINGS: LUNGS: Normal. No significant pulmonary parenchymal abnormalities. VASCULATURE: Normal. Unremarkable pulmonary vasculature. CARDIAC: Normal. No cardiac silhouette abnormality or cardiomegaly. MEDIASTINUM: The aorta is ectatic. Calcification is present at the arch. PLEURA: Normal. No effusion or pleural thickening. BONES: Normal. No fracture or visible bony lesion. OTHER: Sternotomy sutures are present. CONCLUSION: No acute disease. No significant change has occurred. Dictated by: Eun Hauser MD on 07/11/2024 at 12:53 Approved by: Eun Hauser MD on 07/11/2024 at 12:54 Normal [facility] CMP with eGFRon 07-11-2024 AGE 84 years Normal [facility] Comment on above: Performed By: #### 2 26571 #### [facility],[address] [place] [address] 17999 Albumin [Mass/Vol] 3.4 g/dL Normal 3.4 - 5.0 [facility] Comment on above: Performed By: #### 2 18099 #### [facility],[address] [place] [address] 01661 Albumin/Globulin [Mass ratio] 1.4 {ratio} Normal 0.9 - 1.6 [facility] Comment on above: Performed By: #### 2 73291 #### [facility],[address] [place] [address] 80367 ALK PHOS 80 U/L Normal 46 - 116 [facility] Comment on above: Performed By: #### 2 07691 #### [facility],[address] [place] [address] 68467 ALT [Catalytic activity/Vol] 21 U/L Normal 16 - 63 [facility] Comment on above: Performed By: #### 2 48049 #### [facility],[address] [place] [address] 98582 Anion gap [Moles/Vol] 13 mmol/L Normal 10 - 20 [facility] Comment on above: Performed By: #### 2 28031 #### [facility],[address] [place] [address] 34856 AST [Catalytic activity/Vol] 13 U/L Low 15 - 37 [facility] Comment on above: Performed By: #### 2 45599 #### [facility],[address] [place] [address] 26712 B/C RATIO 15 ratio Normal 0 - 30 [facility] Comment on above: Performed By: #### 2 54697 #### [facility],[address] [place] [address] 16517 Bilirubin [Mass/Vol] 0.9 mg/dL Normal 0.2 - 1.0 [facility] Comment on above: Performed By: #### 2 01575 #### [facility],[address] [place] [address] 71758 Calcium [Mass/Vol] 8.9 mg/dL Normal 8.5 - 10.1 [facility] Comment on above: Performed By: #### 2 28118 #### [facility],[address] [place], [place] [address] Chloride [Moles/Vol] 96 mmol/L Low 98 - 107 [facility] Comment on above: Performed By: #### 2 47579 #### [facility],[address] [place] [address] CMP with eGFR Normal [facility] Comment on above: Result Comment: COMP REHENSIVE METABOLIC PANEL Performed By: #### 2 46495 #### [facility],[address] [place] [address] 24299 CO2 [Moles/Vol] 26.0 mmol/L Normal 21.0 - 32.0 [facility] Comment on above: Performed By: #### 2 12199 #### [facility],[address] [place] [address] 80415 Creatinine [Mass/Vol] 1.31 mg/dL High 0.70 - 1.30 [facility] Comment on above: Performed By: #### 2 62705 #### [facility],[address] [place] [address] 94430 eGFR 52 ML/MINUTE Low 60 - 999 [facility] Comment on above: Performed By: #### 2 36432 #### [facility],[address] [place] [address] 81530 GFR/1.73 sq M.predicted among non-blacks MDRD (S/P/Bld) [Vol rate/Area] mL/min/{1.73_m2} Normal 60 - 999 [facility] Comment on above: Result Comment: ACCO RDING TO THE NATIONAL KIDNEY DISEASE EDUCATION PROGRAM(NKDE), A NORMAL eGFR IS A VALUE GREATER THAN OR EQUAL TO 60 ML/MIN/1.73 SQ METERS. CHRONIC KIDNEY DISEASE: <60mL/MIN/1.73 SQ METERS KIDNEY FAILURE: <15mL/MIN/1.73 SQ METERS THIS TEST SHOULD ONLY BE USED FOR PATIENTS 18 YEARS OF AGE AND OLDER. Performed By: #### 2 04421 #### [facility],[address] [place] [address] 40095 Globulin (S) [Mass/Vol] 2.5 g/dL Normal 1.5 - 3.8 [facility] Comment on above: Performed By: #### 2 91632 #### [facility],[address] [place] [address] 01934 Glucose [Mass/Vol] 167 mg/dL High 74 - 106 [facility] Comment on above: Performed By: #### 2 79486 #### [facility],[address] [place] [address] 76010 Potassium [Moles/Vol] 4.1 mmol/L Normal 3.5 - 5.1 [facility] Comment on above: Performed By: #### 2 98095 #### [facility],[address] [place] [address] 68157 Protein [Mass/Vol] 5.9 g/dL Low 6.4 - 8.2 [facility] Comment on above: Performed By: #### 2 67221 #### [facility],[address] [place] [address] 00888 Sodium [Moles/Vol] 131 mmol/L Low 136 - 145 [facility] Comment on above: Performed By: #### 2 80379 #### [facility],[address] [place] [address] 81653 Urea nitrogen [Mass/Vol] 19 mg/dL High 7 - 18 [facility] Comment on above: Performed By: #### 2 07153 #### [facility],[address] [place] [address] 96190 FOLATESon 07-11-2024 FOLATES 92.9 ng/ml High 8.6 - 58.9 [facility] Comment on above: Performed By: #### 2 97874 #### [facility],[address] [place] [address] 49122 IRONon 07-11-2024 Iron [Mass/Vol] 61 ug/dL Low 65 - 175 [facility] Comment on above: Performed By: #### 2 62595 ####[facility],[address] [place] [address] 55532 NT-proBNPon 07-11-2024 Natriuretic peptide B (Bld) [Mass/Vol] 662 pg/mL High 0 - 450 [facility] Comment on above: Performed By: #### 2 43110 #### [facility],[address] [place] [address] 88604 TROPONIN I, HIGH SENSITIVITY on 07-11-2024 HS TROPONIN 50.4 pg/mL Normal 0.0 - 76.2 [facility] Comment on above: Performed By: #### 2 47091 #### [facility],[address] [place] [address] 11456 HS TROPONIN 57.6 pg/mL Normal 0.0 - 76.2 [facility] Comment on above: Performed By: #### 2 59303 #### [facility],[address] [place] [address] 66115 HS TROPONIN 36.1 pg/mL Normal 0.0 - 76.2 [facility] Comment on above: Performed By: #### 2 33345 #### [facility],[address] [place] [address] 63259 URINALYSISon 07-11-2024 Amorphous NONE Normal [facility] Comment on above: Performed By: #### 2 00857 #### [facility],[address] [place] [address] 64428 Bacteria NONE Normal [facility] Comment on above: Performed By: #### 2 64439 #### [facility],[address] [place] [address] 69492 Bilirubin Ql (U) Negative Normal NORMAL: NEGATIVE [facility] Comment on above: Performed By: #### 2 37725 #### [facility],[address] [place] [address] 04800 Casts NONE Normal [facility] Comment on above: Performed By: #### 2 39029 #### [facility],[address] [place] [address] 04926 Clarity (U) clear Normal NORMAL: CLEAR [facility] Comment on above: Performed By: #### 2 61614 #### [facility],[address] [place], [place] [address] Color (U) yellow Normal NORMAL: YELLOW [facility] Comment on above: Performed By: #### 2 71059 #### [facility],[address] [place] [address] 63545 Crystals LM Nom (Urine sed) NONE Normal [facility] Comment on above: Performed By: #### 2 12943 #### [facility],[address] [place] [address] 73921 Epi Cells NONE Normal [facility] Comment on above: Performed By: #### 2 90384 #### [facility],[address] [place] [address] 22229 Glucose Ql (U) NORM Normal NORMAL: NORMAL [facility] Comment on above: Performed By: #### 2 73852 #### [facility],[address] [place] [address] 33011 Hemoglobin Ql (U) 50 Abnormal NORMAL: NEGATIVE [facility] Comment on above: Performed By: #### 2 13506 #### [facility],[address] [place] [address],[facility] [address] Ketone Negative Normal NORMAL: NEGATIVE [facility] Comment on above: Performed By: #### 2 06930 #### [facility],[address] [place] [address] 45947 Leukocytes Negative Normal NORMAL: NEGATIVE [facility] Comment on above: Performed By: #### 2 55402 #### [facility],[address] [place] [address] 23340 Mucous NONE Normal [facility] Comment on above: Performed By: #### 2 85477 #### [facility],[address] [place], [place] [address] Nitrite Ql (U) Negative Normal NORMAL: NEGATIVE [facility] Comment on above: Performed By: #### 2 17969 #### [facility],[address] [place] [address] pH (U) 6 [pH] Normal NORMAL: 5.0-8.0 [facility] Comment on above: Performed By: #### 2 65714 #### [facility],[address] [place] [address] Protein Ql (U) Negative Normal NORMAL: NEGATIVE [facility] Comment on above: Performed By: #### 2 71793 #### [facility],[address] [place] [address] Rbc 0-5 Normal 0-3/hpf [facility] Comment on above: Performed By: #### 2 23044 #### [facility],[address] [place] [address] Sp [place] 1.010 Normal NORMAL: 1.010-1.030 [facility] Comment on above: Performed By: #### 2 35694 #### [facility],[address] [place], [place] [address] Specimen Type Void Normal [facility] Comment on above: Performed By: #### 2 06969 #### [facility],[address] [place], [place] [address] Urinalysis dipstick W Reflex Microscopic panel (U) SEE BELOW Normal [facility] Comment on above: Result Comment: MICR OSCOPIC Performed By: #### 2 79381 #### [facility],[address] [place] [address] 57170 Urobilinog NORM Normal NORMAL: NORMAL [facility] Comment on above: Performed By: #### 2 19582 #### [facility],[address] [place] [address] 61505 Wbc NONE Normal 0-5/hpf [facility] Comment on above: Performed By: #### 2 63750 #### [facility],[address] [place] [address] 93715 Yeast NONE Normal [facility] Comment on above: Performed By: #### 2 55798 #### [facility],[address] [place] [address] 26081 VITAMIN B-12on 07-11-2024 Cobalamin (Vitamin B12) [Mass/Vol] 1127 pg/mL High 193 - 986 [facility] Comment on above: Performed By: #### 2 65963 #### [facility],[address] [place] [address] 24949 VITAMIN D, 25 HYDROXYon 06-14 VitD 75.30 ng/mL Normal 30.00 - 100 [facility] Comment on above: Result Comment: 25-O HD3 indicates both endogenous production and supplementation. 25-OHD2 is an indicator of exogenous sources, such as diet or supplementation. Therapy is based on measurement of Total 25-OHD, with levels <20 ng/mL indicative of Vitamin D deficiency, while levels between 20 ng/mL and 30 ng/mL suggest insufficiency. Optimal levels are >=30ng/mL. Vitamin D, 25-OH D3 Not Established Vitamin D, 25-OH D2 Not Established Performed By: #### 2 64645 #### [facility],[address] [place] [address] 84896 APTTon 06-30-2024 aPTT Coag (Bld) [Time] 37.1 s Normal 25.4 - 38.4 [facility] Comment on above: Performed By: #### 2 29530 #### [facility],[address] [place] [address] 70356 BMP with eGFRon 06-30-2024 AGE 84 years Normal [facility] Comment on above: Performed By: #### 2 67159 #### [facility],[address] [place] [address] 01885 Anion gap [Moles/Vol] 12 mmol/L Normal 10 - 20 [facility] Comment on above: Performed By: #### 2 15312 #### [facility],[address] [place] [address] 98404 BMP with eGFR Normal [facility] Comment on above: Result Comment: BASI C METABOLIC PANEL Performed By: #### 2 35873 #### [facility],[address] [place] [address] 72623 Calcium [Mass/Vol] 9.0 mg/dL Normal 8.5 - 10.1 [facility] Comment on above: Performed By: #### 2 69529 #### [facility],[address] [place] [address] 20777 Chloride [Moles/Vol] 98 mmol/L Normal 98 - 107 [facility] Comment on above: Performed By: #### 2 37118 #### [facility],[address] [place] [address] 17271 CO2 [Moles/Vol] 25.7 mmol/L Normal 21.0 - 32.0 [facility] Comment on above: Performed By: #### 2 85493 #### [facility],[address] [place] [address] 39220 Creatinine [Mass/Vol] 1.16 mg/dL Normal 0.70 - 1.30 [facility] Comment on above: Performed By: #### 2 89036 #### [facility],[address] [place] [address] 76634 eGFR 60 ML/MINUTE Normal 60 - 999 [facility] Comment on above: Performed By: #### 2 27910 #### [facility],[address] [place] [address] 35939 GFR/1.73 sq M.predicted among non-blacks MDRD (S/P/Bld) [Vol rate/Area] mL/min/{1.73_m2} Normal 60 - 999 [facility] Comment on above: Result Comment: ACCO RDING TO THE NATIONAL KIDNEY DISEASE EDUCATION PROGRAM(NKDE), A NORMAL eGFR IS A VALUE GREATER THAN OR EQUAL TO 60 ML/MIN/1.73 SQ METERS. CHRONIC KIDNEY DISEASE: <60mL/MIN/1.73 SQ METERS KIDNEY FAILURE: <15mL/MIN/1.73 SQ METERS THIS TEST SHOULD ONLY BE USED FOR PATIENTS 18 YEARS OF AGE AND OLDER. Performed By: #### 2 09850 #### [facility],[address] [place] [address] 10476 Glucose [Mass/Vol] 107 mg/dL High 74 - 106 [facility] Comment on above: Performed By: #### 2 75212 #### [facility],[address] [place] [address] 61248 Potassium [Moles/Vol] 4.2 mmol/L Normal 3.5 - 5.1 [facility] Comment on above: Performed By: #### 2 57622 #### [facility],[address] [place] [address] 29081 Sodium [Moles/Vol] 131 mmol/L Low 136 - 145 [facility] Comment on above: Performed By: #### 2 52903 #### [facility],[address] [place] [address] 08490 Urea nitrogen [Mass/Vol] 15 mg/dL Normal 7 - 18 [facility] Comment on above: Performed By: #### 2 31336 #### [facility],[address] [place] [address] 50991 CBC + DIFFon 06-30-2024 Baso # 0.02 x10EE3/UL Normal 0.00 - 0.10 [facility] Comment on above: Performed By: #### 2 93780 #### [facility],[address] [place] [address] 52871 Basophils/100 WBC (Bld) 0.4 % Normal 0.0 - 2.0 [facility] Comment on above: Performed By: #### 2 30430 #### [facility],[address] [place] [address] CBC + DIFF Normal [facility] Comment on above: Result Comment: CBC- COMPLETE BLOOD COUNT Performed By: #### 2 83092 #### [facility],[address] [place] [address] EO # 0.05 x10EE3/UL Normal 0.00 - 0.50 [facility] Comment on above: Performed By: #### 2 01590 #### [place] [address] Eosinophils/100 WBC (Bld) 0.9 % Normal 0.0 - 7.0 [facility] Comment on above: Performed By: #### 2 75036 #### [facility],[address] [place] [address] Erythrocyte distribution width (RBC) [Ratio] 14.6 % Normal 12.0 - 15.6 [facility] Comment on above: Performed By: #### 2 99418 #### [facility],[address] [place] [address] Hematocrit (Bld) [Volume fraction] 32.2 % Low 40.0 - 52.0 [facility] Comment on above: Performed By: #### 2 77855 #### [facility],[address] [place] [address] Hemoglobin (Bld) [Mass/Vol] 11.5 g/dL Low 13.0 - 17.5 [facility] Comment on above: Performed By: #### 2 99104 #### [facility],[address] [place] [address] Lymph # 1.07 x10EE3/UL Normal 0.80 - 2.80 [facility] Comment on above: Performed By: #### 2 91267 #### [place] [address] Lymphocytes/100 WBC (Bld) 20.9 % Normal 20.0 - 45.0 [facility] Comment on above: Performed By: #### 2 93821 #### [facility],[address] [place] [address] MANUAL DIFF N/A Normal [facility] Comment on above: Performed By: #### 2 22950 #### [place] [address] MCH (RBC) [Entitic mass] 29 pg Normal 27 - 33 [facility] Comment on above: Performed By: #### 2 82419 #### [place] [address] MCHC 36 X10 3 Normal 32 - 36 [facility] Comment on above: Performed By: #### 2 27664 #### [place] [address] MCV (RBC) [Entitic vol] 82 fL Normal 81 - 98 [facility] Comment on above: Performed By: #### 2 40787 #### [place] [address] Levy # 0.59 x10EE3/UL Normal 0.20 - 1.00 [facility] Comment on above: Performed By: #### 2 00083 #### [place] [address] MONOS % 11.7 % High 0.0 - 10.0 [facility] Comment on above: Performed By: #### 2 32494 #### [place] [id number] Morphology Scott (Bld) [Interp] N/A Normal [facility] Comment on above: Performed By: #### 2 24079 #### [facility],[address] [place] [address] 57955 Neut # 3.37 x10EE3/UL Normal 1.50 - 7.10 [facility] Comment on above: Performed By: #### 2 51714 #### [address] [address] Neutrophils/100 WBC (Bld) 66.1 % Normal 46.0 - 76.0 [facility] Comment on above: Performed By: #### 2 41296 #### [facility],[address] [place] [address] 60731 PLATELET 202 x10EE3/UL Normal 150 - 450 [facility] Comment on above: Performed By: #### 2 86030 #### [address] [address] Platelet mean volume (Bld) [Entitic vol] 7.1 fL Normal 6.4 - 10.5 [facility] Comment on above: Result Comment: AUTO MATED DIFFERENTIAL Performed By: #### 2 08380 #### [facility],[address] [place] [address] 77294 RBC 3.92 x 10EE6/UL Low 4.50 - 6.00 [facility] Comment on above: Performed By: #### 2 94282 #### [facility],[address] [place] [address] 86496 WBC 5.1 x 10EE3/UL Normal 4.5 - 10.8 [facility] Comment on above: Performed By: #### 2 44950 #### [facility],[address] [place] [address] 31134 CHEST 1 VIEWon 06-30-2024 CHEST 1 VIEW [place] [address] Patient: STEPHANI ELIAS Phone#: : [phone] Age: 84 Gender: M Pt. Type: ER Account: [id number] Location: [id number] Ordering: MAC HERNANDEZ Exam Date: 06/30/2024/1:04 Family Phys: JERILYN SWANSON Charge Code: 340020 Physician: [place] Order #: [id number] Dose#: PROCEDURE: X-RAY CHEST 1 VIEW COMPARISON: [facility], XR, CHEST 2 VIEWS, 03/02/2024, 11:10. INDICATIONS: Shortness of breath. FINDINGS: LUNGS: Normal. No significant pulmonary parenchymal abnormalities. VASCULATURE: Normal. Unremarkable pulmonary vasculature. CARDIAC: Mild cardiomegaly. MEDIASTINUM: Calcification of the aortic arch is present. The aorta is ectatic. PLEURA: Normal. No effusion or pleural thickening. BONES: Normal. No fracture or visible bony lesion. OTHER: Sternotomy sutures are present. CONCLUSION: 1. Cardiomegaly. 2. There is no evidence of acute pulmonary abnormality. Dictated by: Eun Hauser MD on 06/30/2024 at 10:25 Approved by: Eun Hauser MD on 06/30/2024 at 10:33 Normal [facility] CMP with eGFRon 06-30-2024 AGE 84 years Normal [facility] Comment on above: Performed By: #### 2 45558 #### [facility],[address] [place], [place] [id number] Albumin [Mass/Vol] 4.0 g/dL Normal 3.4 - 5.0 [facility] Comment on above: Performed By: #### 2 97366 #### [facility],[address] [place] [address] 83365 Albumin/Globulin [Mass ratio] 1.5 {ratio} Normal 0.9 - 1.6 [facility] Comment on above: Performed By: #### 2 97113 #### [facility],[address] [place], [place] [id number] ALK PHOS 100 U/L Normal 46 - 116 [facility] Comment on above: Performed By: #### 2 44172 #### [facility],[address] [place] [address] 07926 ALT [Catalytic activity/Vol] 25 U/L Normal 16 - 63 [facility] Comment on above: Performed By: #### 2 90509 #### [facility],[address] [place] [address] 31676 Anion gap [Moles/Vol] 14 mmol/L Normal 10 - 20 [facility] Comment on above: Performed By: #### 2 71342 #### [facility],[address] [place], [place] [id number] AST [Catalytic activity/Vol] 16 U/L Normal 15 - 37 [facility] Comment on above: Performed By: #### 2 87013 #### [facility],[address] [place], [place] [id number] B/C RATIO 14 ratio Normal 0 - 30 [facility] Comment on above: Performed By: #### 2 94376 #### [facility],[address] [place] [address] 68456 Bilirubin [Mass/Vol] 1.1 mg/dL High 0.2 - 1.0 [facility] Comment on above: Performed By: #### 2 30731 #### [facility],[address] [place] [address] 93498 Calcium [Mass/Vol] 9.1 mg/dL Normal 8.5 - 10.1 [facility] Comment on above: Performed By: #### 2 31349 #### [facility],[address] [place] [address] 49461 Chloride [Moles/Vol] 90 mmol/L Low 98 - 107 [facility] Comment on above: Performed By: #### 2 53504 #### [facility],[address] [place], [place] [id number] CMP with eGFR Normal [facility] Comment on above: Result Comment: COMP REHENSIVE METABOLIC PANEL Performed By: #### 2 82283 #### [facility],[address] [place] [address] 83299 CO2 [Moles/Vol] 24.8 mmol/L Normal 21.0 - 32.0 [facility] Comment on above: Performed By: #### 2 38165 #### [facility],[address] [place] [address] Creatinine [Mass/Vol] 1.26 mg/dL Normal 0.70 - 1.30 [facility] Comment on above: Performed By: #### 2 25386 #### [facility],[address] [place] [address] eGFR 54 ML/MINUTE Low 60 - 999 [facility] Comment on above: Performed By: #### 2 93884 #### [facility],[address] [place] [address] GFR/1.73 sq M.predicted among non-blacks MDRD (S/P/Bld) [Vol rate/Area] mL/min/{1.73_m2} Normal 60 - 999 [facility] Comment on above: Result Comment: ACCO RDING TO THE NATIONAL KIDNEY DISEASE EDUCATION PROGRAM(NKDE), A NORMAL eGFR IS A VALUE GREATER THAN OR EQUAL TO 60 ML/MIN/1.73 SQ METERS. CHRONIC KIDNEY DISEASE: <60mL/MIN/1.73 SQ METERS KIDNEY FAILURE: <15mL/MIN/1.73 SQ METERS THIS TEST SHOULD ONLY BE USED FOR PATIENTS 18 YEARS OF AGE AND OLDER. Performed By: #### 2 40443 #### [facility],[address] [place] [address] 04313 Globulin (S) [Mass/Vol] 2.7 g/dL Normal 1.5 - 3.8 [facility] Comment on above: Performed By: #### 2 50230 #### [facility],[address] [place], [place] [id number] Glucose [Mass/Vol] 120 mg/dL High 74 - 106 [facility] Comment on above: Performed By: #### 2 59970 #### [facility],[address] [place] [address] 43553 Potassium [Moles/Vol] 4.9 mmol/L Normal 3.5 - 5.1 [facility] Comment on above: Performed By: #### 2 77103 #### [facility],[address] [place] [address] 97984 Protein [Mass/Vol] 6.7 g/dL Normal 6.4 - 8.2 [facility] Comment on above: Performed By: #### 2 76964 #### [facility],[address] [place] [address] 85959 Sodium [Moles/Vol] 124 mmol/L Low 136 - 145 [facility] Comment on above: Performed By: #### 2 89252 #### [facility],[address] [place] [address] 98837 Urea nitrogen [Mass/Vol] 18 mg/dL Normal 7 - 18 [facility] Comment on above: Performed By: #### 2 13485 #### [facility],[address] [place] [address] 61871 D-DIMER, QUANTITATIVEon 06-12 D-DIMER QUANT <200 Normal 0 - 230 [facility] Comment on above: Performed By: #### 2 74661 #### [facility],[address] [place] [address] 28446 D-DIMER, QUANTITATIVE Normal [facility] Comment on above: Result Comment: CONSTANTINO T D-DIMER Performed By: #### 2 95050 #### [facility],[address] [place] [address] 34520 NT-proBNPon 06-30-2024 Natriuretic peptide B (Bld) [Mass/Vol] 668 pg/mL High 0 - 450 [facility] Comment on above: Performed By: #### 2 02684 #### [facility],[address] [place] [address] 10450 OSMOLALITY - SERUMon 024 OSMO SERUM 270 mOsm/kg Low 280 - 302 [facility] Comment on above: Performed By: #### 2 31387 #### [facility],[address] [place] [address] 17264 OSMOLALITY - URINEon 024 OSMO URINE 124 mOsm/kg Low 150 - 1000 [facility] Comment on above: Performed By: #### 2 04389 ####[facility],[address] [place] [address] 18082 PROTHROMBIN TIME AND INRon 0 06-30-2024 INR Coag (PPP) [Relative time] 2.0 {INR} High 0.8 - 1.2 [facility] Comment on above: Result Comment: T HE HEMOSIL THROMBOPLASTIN REAGENT USED IN THE PROTHROMBIN TIME TEST INTERACTS WITH THE DRUG CUBICIN (DAPTOMYCIN) AND WILL RESULT IN FALSELY ELEVATED PT / INR RESULTS INR INTERPRETATION INR INDICATION PREVENTION AND TREATMENT OF THROMBOEMBOLISM ASSOCIATED WITH: 2.0 - 3.0 ATRIAL FIBRILLATION, BIOPROSTHETIC HEART VALVES, PULMONARY EMBOLISM, VENOUS THROMBOSIS, SYSTEMIC EMBOLISM POST MYOCARDIAL INFARCTION 2.5 - 3.5 MECHANICAL HEART VALVES Performed By: #### 2 39035 ####[facility],[address] [place] [address] 96181 PROTHROMBIN TIME AND INR Normal [facility] Comment on above: Result Comment: PROT HROMBIN TIME AND INR Performed By: #### 2 00207 ####[facility],[address] [place] [address] 28492 PT-COUMADIN 19.8 sec High 9.3 - 14.1 [facility] Comment on above: Performed By: #### 2 32484 ####[facility],[address] [place] [address] 29945 SODIUM,URINE,RANDOMon 2023 Sodium (U) [Moles/Vol] 29.0 mmol/L Normal [facility] Comment on above: Performed By: #### 2 60433 ####[facility],[address] [place] [address] 78234 TROPONIN I, HIGH SENSITIVITY on 06-30-2024 HS TROPONIN 13.2 pg/mL Normal 0.0 - 76.2 [facility] Comment on above: Performed By: #### 2 86637 #### [facility],[address] [place] [address] 97017 HS TROPONIN 10.3 pg/mL Normal 0.0 - 76.2 [facility] Comment on above: Performed By: #### 2 60428 #### [facility],[address] [place] [address] 88930 TSHon 06-30-2024 TSH Qn 2.40 m[IU]/L Normal 0.35 - 3.74 [facility] Comment on above: Performed By: #### 2 49483 #### [facility],[address] [place], [place] [address] Hemoglobin A1con 11-26-2021 Glucose [Mass/Vol] 117 mg/dL Normal [facility] Comment on above: Performed By: #### H BA1C #### [facility] Routine Lab [address] [place] [address] HbA1c (Bld) [Mass fraction] 5.7 % High 4.3-5.6 [facility] Comment on above: Performed By: #### H BA1C #### [facility]ine Lab [address] [place] [address] Hemoglobin A1con 08-01-2021 Glucose [Mass/Vol] 134 mg/dL Normal [facility] Comment on above: Performed By: #### H BA1C #### [facility] Routine Lab [address] [place] [address] HbA1c (Bld) [Mass fraction] 6.3 % High 4.3-5.6 [facility] Comment on above: Performed By: #### H BA1C #### [facility] [address] [place] [address] Discharge Summaryon 10-01-20 17 Discharge Summary Normal [facility] ([place] .Auto Diffon 09-30-2017 Basophils Auto #/vol (Bld) 0.00 10 3/mcL Normal 0.00-0.27 [facility] ([place] Comment on above: Performed By: #### C BC, ADIFF, ANEU, PRO, BMP, GFR ####[address] [address] Basophils/100 WBC Auto (Bld) 0.6 % Normal 0.0-2.5 [facility] ([place] Comment on above: Performed By: #### C BC, ADIFF, ANEU, PRO, BMP, GFR ####[address] [address] Eosinophils 0.00 10 3/mcL Normal 0.00-0.65 [facility] ([place] Comment on above: Performed By: #### C BC, ADIFF, ANEU, PRO, BMP, GFR ####[address] [address] Eosinophils/100 leukocytes 0.7 % Normal 0.0-6.0 [facility] ([place] Comment on above: Performed By: #### C BC, ADIFF, ANEU, PRO, BMP, GFR ####[address] [address] Lymphocytes 1.70 10 3/mcL Normal 0.90-4.32 [facility] ([place] Comment on above: Performed By: #### C BC, ADIFF, ANEU, PRO, BMP, GFR ####[address] [address] Lymphocytes/100 leukocytes 29.5 % Normal 20.0-40.0 [facility] ([place] Comment on above: Performed By: #### C BC, ADIFF, ANEU, PRO, BMP, GFR ####[address] [address] Monocytes 0.90 10 3/mcL Normal 0.09-1.40 [facility] ([place] Comment on above: Performed By: #### C BC, ADIFF, ANEU, PRO, BMP, GFR ####[address] [address] Monocytes/100 leukocytes 15.4 % High 2.0-13.0 [facility] ([place] Comment on above: Performed By: #### C BC, ADIFF, ANEU, PRO, BMP, GFR ####[address] [address] Neutrophils/100 WBC Auto (Bld) 53.8 % Normal 50.0-75.0 [facility] ([place] Comment on above: Performed By: #### C BC, ADIFF, ANEU, PRO, BMP, GFR ####[address] [address] .GFRon 09-30-2017 eGFR (non-black) 60 ml/min/1.73sqm Normal [facility] ([place] Comment on above: Result Comment: GFR Population mean for , Non- Americans Ages 20-29 = 116 mL/min/1.73 sq.m. Ages 30-39 = 107 mL/min/1.73 sq.m. Ages 40-49 = 99 mL/min/1.73 sq.m. Ages 50-59 = 93 mL/min/1.73 sq.m. Ages 60-69 = 85 mL/min/1.73 sq.m. Ages 70+ = 75 mL/min/1.73 sq.m.Chronic Kidney Disease: Less than 60 mL/min/1.73 square metersEnd Stage Renal Disease: Less than 15 mL/min/1.73 square meters Performed By: #### C BC, ADIFF, ANEU, PRO, BMP, GFR ####[address] [address] eGFR (non-black) mL/min/{1.73_m2} Normal [facility] ([place] Comment on above: Result Comment: GFR Population mean for , Non- Americans Ages 20-29 = 116 mL/min/1.73 sq.m. Ages 30-39 = 107 mL/min/1.73 sq.m. Ages 40-49 = 99 mL/min/1.73 sq.m. Ages 50-59 = 93 mL/min/1.73 sq.m. Ages 60-69 = 85 mL/min/1.73 sq.m. Ages 70+ = 75 mL/min/1.73 sq.m.Chronic Kidney Disease: Less than 60 mL/min/1.73 square metersEnd Stage Renal Disease: Less than 15 mL/min/1.73 square meters Performed By: #### C BC, ADIFF, ANEU, PRO, BMP, GFR ####[place] [address] .NEUABSon 09-30-2017 Neutrophils 3.20 10 3/mcL Normal 2.25-8.10 [facility] ([place] Comment on above: Performed By: #### C BC, ADIFF, ANEU, PRO, BMP, GFR ####[place] [address] BMPon 09-30-2017 BUN/Creatinine Ratio 12.8 ratio Normal 10.0-22.0 [facility] ([place] Comment on above: Performed By: #### C BC, ADIFF, ANEU, PRO, BMP, GFR ####[place] [address] Calcium 8.6 mg/dL Normal 8.4-10.1 [facility] ([place] Comment on above: Performed By: #### C BC, ADIFF, ANEU, PRO, BMP, GFR ####[place] [address] Chloride 107 mmol/L Normal 98-110 [facility] ([place] Comment on above: Performed By: #### C BC, ADIFF, ANEU, PRO, BMP, GFR ####[place] [address] CO2 25 mmol/L Normal 22-32 [facility] ([place] Comment on above: Performed By: #### C BC, ADIFF, ANEU, PRO, BMP, GFR ####[place] [address] Creatinine 1.17 mg/dL Normal 0.60-1.40 [facility] ([place] Comment on above: Performed By: #### C BC, ADIFF, ANEU, PRO, BMP, GFR ####[place] [address] Electrolyte Balance 8.0 mEq/L Normal 4.0-15.0 [facility] ([place] Comment on above: Performed By: #### C BC, ADIFF, ANEU, PRO, BMP, GFR ####[place] [address] Glucose mass conc 158 mg/dL High 82-115 [facility] ([place] Comment on above: Performed By: #### C BC, ADIFF, ANEU, PRO, BMP, GFR ####[place] [address] Potassium molar conc 3.8 mmol/L Normal 3.5-5.0 [facility] ([place] Comment on above: Performed By: #### C BC, ADIFF, ANEU, PRO, BMP, GFR ####[place] [address] Sodium 140 mmol/L Normal 136-145 [facility] ([place] Comment on above: Performed By: #### C BC, ADIFF, ANEU, PRO, BMP, GFR ####[place] [address] Urea nitrogen 15.0 mg/dL Normal 8.0-22.0 [facility] ([place] Comment on above: Performed By: #### C BC, ADIFF, ANEU, PRO, BMP, GFR ####[place] [address] CBCon 09-30-2017 Erythrocyte distribution width Auto Ratio (RBC) 14.4 % Normal 11.5-15.5 [facility] ([place] Comment on above: Performed By: #### C BC, ADIFF, ANEU, PRO, BMP, GFR ####[place] [address] Erythrocytes (RBC) 4.24 10 6/mcL Low 4.50-6.00 [facility] ([place] Comment on above: Performed By: #### C BC, ADIFF, ANEU, PRO, BMP, GFR ####[place] [address] Hematocrit (HCT) 35.4 % Low 40.0-52.0 [facility] ([place] Comment on above: Performed By: #### C BC, ADIFF, ANEU, PRO, BMP, GFR ####[place] [address] Hemoglobin mass conc (Bld) 12.1 G/dL Low 13.0-17.5 [facility] ([place] Comment on above: Performed By: #### C BC, ADIFF, ANEU, PRO, BMP, GFR ####[place] [address] MCH 28.6 pg Normal 27.0-33.0 [facility] ([place] Comment on above: Performed By: #### C BC, ADIFF, ANEU, PRO, BMP, GFR ####[place] [address] MCHC mass conc (RBC) 34.2 G/dL Normal 32.0-36.0 [facility] ([place] Comment on above: Performed By: #### C BC, ADIFF, ANEU, PRO, BMP, GFR ####[place] [address] MCV 83.6 fL Normal 81.0-100.0 [facility] ([place] Comment on above: Performed By: #### C BC, ADIFF, ANEU, PRO, BMP, GFR ####[place] [address] Platelet mean volume (PMV) 8.0 fL Normal 6.4-10.5 [facility] ([place] Comment on above: Performed By: #### C BC, ADIFF, ANEU, PRO, BMP, GFR ####[place] [address] Platelets 169 10 3/mcL Normal 150-450 [facility] ([place] Comment on above: Performed By: #### C BC, ADIFF, ANEU, PRO, BMP, GFR ####[place] [address] WBC (Leukocytes) 5.90 10 3/mcL Normal 4.50-10.80 [facility] ([place] Comment on above: Performed By: #### C BC, ADIFF, ANEU, PRO, BMP, GFR ####[place] [address] Depart Summaryon 09-30-2017 Depart Summary Normal [facility] ([place] Patient Summaryon 09-30-2017 Inpatient Patient Summary Normal [facility] [place] .Auto Diffon 09-29-2017 Basophils Auto #/vol (Bld) 0.00 10 3/mcL Normal 0.00-0.27 [facility] ([place] Comment on above: Performed By: #### C BC, ADIFF, ANEU, CMP, GFR, LIPID ####[address] [address] Basophils/100 WBC Auto (Bld) 0.6 % Normal 0.0-2.5 [facility] ([place] Comment on above: Performed By: #### C BC, ADIFF, ANEU, CMP, GFR, LIPID ####[address] [address] Eosinophils 0.10 10 3/mcL Normal 0.00-0.65 [facility] ([place] Comment on above: Performed By: #### C BC, ADIFF, ANEU, CMP, GFR, LIPID ####[address] [address] Eosinophils/100 leukocytes 1.5 % Normal 0.0-6.0 [facility] ([place] Comment on above: Performed By: #### C BC, ADIFF, ANEU, CMP, GFR, LIPID ####[address] [address] Lymphocytes 1.80 10 3/mcL Normal 0.90-4.32 [facility] ([place] Comment on above: Performed By: #### C BC, ADIFF, ANEU, CMP, GFR, LIPID ####[address] [address] Lymphocytes/100 leukocytes 30.0 % Normal 20.0-40.0 [facility] ([place] Comment on above: Performed By: #### C BC, ADIFF, ANEU, CMP, GFR, LIPID ####[address] [address] Monocytes 0.60 10 3/mcL Normal 0.09-1.40 [facility] ([place] Comment on above: Performed By: #### C BC, ADIFF, ANEU, CMP, GFR, LIPID ####[address] [address] Monocytes/100 leukocytes 10.2 % Normal 2.0-13.0 [facility] ([place] Comment on above: Performed By: #### C BC, ADIFF, ANEU, CMP, GFR, LIPID ####[address] [address] Neutrophils/100 WBC Auto (Bld) 57.7 % Normal 50.0-75.0 [facility] ([place] Comment on above: Performed By: #### C BC, ADIFF, ANEU, CMP, GFR, LIPID ####[address] [address] .GFRon 09-29-2017 eGFR (non-black) mL/min/{1.73_m2} Normal [facility] ([place] Comment on above: Result Comment: GFR Population mean for , Non- Americans Ages 20-29 = 116 mL/min/1.73 sq.m. Ages 30-39 = 107 mL/min/1.73 sq.m. Ages 40-49 = 99 mL/min/1.73 sq.m. Ages 50-59 = 93 mL/min/1.73 sq.m. Ages 60-69 = 85 mL/min/1.73 sq.m. Ages 70+ = 75 mL/min/1.73 sq.m.Chronic Kidney Disease: Less than 60 mL/min/1.73 square metersEnd Stage Renal Disease: Less than 15 mL/min/1.73 square meters Performed By: #### C BC, ADIFF, ANEU, PRO, BMP, GFR ####[address] [address] .NEUABSon 09-29-2017 Neutrophils 3.40 10 3/mcL Normal 2.25-8.10 [facility] ([place] Comment on above: Performed By: #### C BC, ADIFF, ANEU, PRO, BMP, GFR ####[address] [address] CBCon 09-29-2017 Erythrocyte distribution width Auto Ratio (RBC) 14.8 % Normal 11.5-15.5 [facility] ([place] Comment on above: Performed By: #### C BC, ADIFF, ANEU, CMP, GFR, LIPID ####[place] [address] Erythrocytes (RBC) 4.29 10 6/mcL Low 4.50-6.00 [facility] ([place] Comment on above: Performed By: #### C BC, ADIFF, ANEU, CMP, GFR, LIPID ####[place] [address] Hematocrit (HCT) 36.0 % Low 40.0-52.0 [facility] ([place] Comment on above: Performed By: #### C BC, ADIFF, ANEU, CMP, GFR, LIPID ####[place] [address] Hemoglobin mass conc (Bld) 12.4 G/dL Low 13.0-17.5 [facility] ([place] Comment on above: Performed By: #### C BC, ADIFF, ANEU, CMP, GFR, LIPID ####[place] [address] MCH 28.9 pg Normal 27.0-33.0 [facility] ([place] Comment on above: Performed By: #### C BC, ADIFF, ANEU, CMP, GFR, LIPID ####[place] [address] MCHC mass conc (RBC) 34.4 G/dL Normal 32.0-36.0 [facility] ([place] Comment on above: Performed By: #### C BC, ADIFF, ANEU, CMP, GFR, LIPID ####[place] [address] MCV 84.0 fL Normal 81.0-100.0 [facility] ([place] Comment on above: Performed By: #### C BC, ADIFF, ANEU, CMP, GFR, LIPID ####[place] [address] Platelet mean volume (PMV) 8.0 fL Normal 6.4-10.5 [facility] ([place] Comment on above: Performed By: #### C BC, ADIFF, ANEU, CMP, GFR, LIPID ####[place] [address] Platelets 182 10 3/mcL Normal 150-450 [facility] ([place] Comment on above: Performed By: #### C BC, ADIFF, ANEU, CMP, GFR, LIPID ####[place] [address] WBC (Leukocytes) 6.00 10 3/mcL Normal 4.50-10.80 [facility] ([place] Comment on above: Performed By: #### C BC, ADIFF, ANEU, CMP, GFR, LIPID ####[place] [address] CMPon 09-29-2017 Alanine aminotransferase (ALT) 42 U/L Normal 12-55 [facility] ([place] Comment on above: Performed By: #### C BC, ADIFF, ANEU, PRO, BMP, GFR ####[place] [address] Albumin/Globulin Ratio 1.2 {ratio} Normal 0.9-1.6 [facility] ([place] Comment on above: Performed By: #### C BC, ADIFF, ANEU, PRO, BMP, GFR ####[place] [address] Alk Phos 61 U/L Normal 38-126 [facility] ([place] Comment on above: Performed By: #### C BC, ADIFF, ANEU, PRO, BMP, GFR ####[place] [address] Bili Total 0.8 mg/dL Normal 0.2-1.2 [facility] ([place] Comment on above: Performed By: #### C BC, ADIFF, ANEU, PRO, BMP, GFR ####[place] [address] BUN/Creatinine Ratio 14.9 ratio Normal 10.0-22.0 [facility] ([place] Comment on above: Performed By: #### C BC, ADIFF, ANEU, PRO, BMP, GFR ####[place] [address] Creatinine 1.14 mg/dL Normal 0.60-1.40 [facility] ([place] Comment on above: Performed By: #### C BC, ADIFF, ANEU, PRO, BMP, GFR ####[place] [address] Globulin 2.8 G/dL Normal 1.5-3.8 [facility] ([place] Comment on above: Performed By: #### C BC, ADIFF, ANEU, PRO, BMP, GFR ####[place] [address] Protein 6.1 G/dL Normal 6.0-8.5 [facility] ([place] Comment on above: Performed By: #### C BC, ADIFF, ANEU, PRO, BMP, GFR ####[place] [address] Albumin 3.3 G/dL Normal 3.2-4.8 [facility] ([place] Comment on above: Performed By: #### C BC, ADIFF, ANEU, PRO, BMP, GFR ####[place] [address] Aspartate aminotransferase (AST) 23 U/L Normal 8-34 [facility] ([place] Comment on above: Performed By: #### C BC, ADIFF, ANEU, PRO, BMP, GFR ####[place] [address] Calcium 8.6 mg/dL Normal 8.4-10.1 [facility] ([place] Comment on above: Performed By: #### C BC, ADIFF, ANEU, PRO, BMP, GFR ####[place] [address] Chloride 108 mmol/L Normal 98-110 [facility] ([place] Comment on above: Performed By: #### C BC, ADIFF, ANEU, PRO, BMP, GFR ####[place] [address] CO2 23 mmol/L Normal 22-32 [facility] ([place] Comment on above: Performed By: #### C BC, ADIFF, ANEU, PRO, BMP, GFR ####[place] [address] Electrolyte Balance 9.0 mEq/L Normal 4.0-15.0 [facility] ([place] Comment on above: Performed By: #### C BC, ADIFF, ANEU, PRO, BMP, GFR ####[place] [address] Glucose mass conc 128 mg/dL High 82-115 [facility] ([place] Comment on above: Performed By: #### C BC, ADIFF, ANEU, PRO, BMP, GFR ####[place] [address] Potassium molar conc 4.1 mmol/L Normal 3.5-5.0 [facility] ([place] Comment on above: Performed By: #### C BC, ADIFF, ANEU, PRO, BMP, GFR ####[place] [address] Sodium 140 mmol/L Normal 136-145 [facility] ([place] Comment on above: Performed By: #### C BC, ADIFF, ANEU, PRO, BMP, GFR ####[place] [address] Urea nitrogen 17.0 mg/dL Normal 8.0-22.0 [facility] ([place] Comment on above: Performed By: #### C BC, ADIFF, ANEU, PRO, BMP, GFR ####[place] [address] LIPIDon 09-29-2017 Cholesterol 185 mg/dL Normal 50-199 [facility] ([place] Comment on above: Result Comment: Chol esterol Reference Interval:Less than 200 [id number] Borderline high lwam242 and above High risk Performed By: #### C BC, ADIFF, ANEU, PRO, BMP, GFR ####[place] [address] HDL Cholesterol 38 mg/dL Low 40-59 [facility] ([place] Comment on above: Result Comment: HDL Reference Interval:Less than 40 Low - high risk60 or above Optimal/lowers risk Performed By: #### C BC, ADIFF, ANEU, PRO, BMP, GFR ####[place] [address] LDL Cholesterol 111 mg/dL Normal 0-129 [facility] ([place] Comment on above: Result Comment: LDL is a calculated result and requires a 12- hr fast.LDL Reference Interval:Less than 100 [id number] Near or above [id number] Borderline high [id number] High urpd411 and above Very high risk Performed By: #### C BC, ADIFF, ANEU, PRO, BMP, GFR ####[place] [address] Triglyceride 178 mg/dL High 3-149 [facility] ([place] Comment on above: Result Comment: Trig lyceride Reference Interval:Less than 150 [id number] Borderline high [id number] High xevf702 or higher Very high risk Performed By: #### C BC, ADIFF, ANEU, PRO, BMP, GFR ####[place] [address] Percutaneous Transluminal Co ronary Angioplasty - CVon 09-29-2017 Percutaneous Transluminal Coronary Angioplasty - CV Normal [facility] [place] UAon 09-29-2017 UA Appear Clear Normal Clear [facility] ([place] Comment on above: Performed By: #### U A ####[address] [address] UA Blood Trace Normal Neg-Trace [facility] ([place] Comment on above: Performed By: #### U A ####[address] [address] UA Leuk Est Negative Normal Negative [facility] ([place] Comment on above: Performed By: #### U A ####[address] [address] UA Nitrite Negative Normal Negative [facility] ([place] Comment on above: Performed By: #### U A ####[address] [address] UA pH 5.0 Normal 5.0 - 8.0 [facility] ([place] Comment on above: Performed By: #### U A ####[address] [address] UA Protein Negative Normal Negative [facility] ([place] Comment on above: Performed By: #### U A ####[place] [address] UA Spec Grav 1.025 Normal 1.006-1.029 [facility] ([place] Comment on above: Performed By: #### U A ####[place] [address] UA Specimen Type Void Normal [facility] ([place] Comment on above: Performed By: #### U A ####[place] [address] UA Urobilinogen 0.2 E.U./dL Normal 0.2-1.0 [facility] ([place] Comment on above: Performed By: #### U A ####[place] [address] Urine, color Yellow Normal [facility] ([place] Comment on above: Performed By: #### U A ####[place] [address] Urine, glucose Negative Normal Negative [facility] ([place] Comment on above: Performed By: #### U A ####[place] [address] Urine, ketones presence Negative Normal Neg-Trace [facility] ([place] Comment on above: Performed By: #### U A ####[place] [address] Urine, urobilinogen Negative Normal Neg-Trace [facility] ([place] Comment on above: Performed By: #### U A ####[place] [address] .Auto Diffon 09-28-2017 Basophils Auto #/vol (Bld) 0.10 10 3/mcL Normal 0.00-0.27 [facility] ([place] Comment on above: Performed By: #### C BC, ADIFF, ANEU, PRO, BMP, GFR ####[place] [address] Basophils/100 WBC Auto (Bld) 1.0 % Normal 0.0-2.5 [facility] ([place] Comment on above: Performed By: #### C BC, ADIFF, ANEU, PRO, BMP, GFR ####[address] [address] Eosinophils 0.10 10 3/mcL Normal 0.00-0.65 [facility] ([place] Comment on above: Performed By: #### C BC, ADIFF, ANEU, PRO, BMP, GFR ####[address] [address] Eosinophils/100 leukocytes 2.2 % Normal 0.0-6.0 [facility] ([place] Comment on above: Performed By: #### C BC, ADIFF, ANEU, PRO, BMP, GFR ####[address] [address] Lymphocytes 1.90 10 3/mcL Normal 0.90-4.32 [facility] ([place] Comment on above: Performed By: #### C BC, ADIFF, ANEU, PRO, BMP, GFR ####[address] [address] Lymphocytes/100 leukocytes 32.8 % Normal 20.0-40.0 [facility] ([place] Comment on above: Performed By: #### C BC, ADIFF, ANEU, PRO, BMP, GFR ####[address] [address] Monocytes 0.60 10 3/mcL Normal 0.09-1.40 [facility] ([place] Comment on above: Performed By: #### C BC, ADIFF, ANEU, PRO, BMP, GFR ####[address] [address] Monocytes/100 leukocytes 10.6 % Normal 2.0-13.0 [facility] ([place] Comment on above: Performed By: #### C BC, ADIFF, ANEU, PRO, BMP, GFR ####[address] [address] Neutrophils/100 WBC Auto (Bld) 53.4 % Normal 50.0-75.0 [facility] ([place] Comment on above: Performed By: #### C BC, ADIFF, ANEU, PRO, BMP, GFR ####[address] [address] .GFRon 09-28-2017 eGFR (non-black) 53 ml/min/1.73sqm Normal [facility] ([place] Comment on above: Result Comment: GFR Population mean for , Non- Americans Ages 20-29 = 116 mL/min/1.73 sq.m. Ages 30-39 = 107 mL/min/1.73 sq.m. Ages 40-49 = 99 mL/min/1.73 sq.m. Ages 50-59 = 93 mL/min/1.73 sq.m. Ages 60-69 = 85 mL/min/1.73 sq.m. Ages 70+ = 75 mL/min/1.73 sq.m.Chronic Kidney Disease: Less than 60 mL/min/1.73 square metersEnd Stage Renal Disease: Less than 15 mL/min/1.73 square meters Performed By: #### C BC, ADIFF, ANEU, PRO, BMP, GFR ####[address] [address] eGFR (non-black) mL/min/{1.73_m2} Normal [facility] ([place] Comment on above: Result Comment: GFR Population mean for , Non- Americans Ages 20-29 = 116 mL/min/1.73 sq.m. Ages 30-39 = 107 mL/min/1.73 sq.m. Ages 40-49 = 99 mL/min/1.73 sq.m. Ages 50-59 = 93 mL/min/1.73 sq.m. Ages 60-69 = 85 mL/min/1.73 sq.m. Ages 70+ = 75 mL/min/1.73 sq.m.Chronic Kidney Disease: Less than 60 mL/min/1.73 square metersEnd Stage Renal Disease: Less than 15 mL/min/1.73 square meters Performed By: #### C BC, ADIFF, ANEU, PRO, BMP, GFR ####[address] [address] .NEUABSon 09-28-2017 Neutrophils 3.10 10 3/mcL Normal 2.25-8.10 [facility] ([place] Comment on above: Performed By: #### C BC, ADIFF, ANEU, PRO, BMP, GFR ####[address] [address] BMPon 09-28-2017 BUN/Creatinine Ratio 16.2 ratio Normal 10.0-22.0 [facility] ([place] Comment on above: Performed By: #### C BC, ADIFF, ANEU, PRO, BMP, GFR ####[place] [address] Calcium 9.3 mg/dL Normal 8.4-10.1 [facility] ([place] Comment on above: Performed By: #### C BC, ADIFF, ANEU, PRO, BMP, GFR ####[place] [address] Chloride 105 mmol/L Normal 98-110 [facility] ([place] Comment on above: Performed By: #### C BC, ADIFF, ANEU, PRO, BMP, GFR ####[place] [address] CO2 26 mmol/L Normal 22-32 [facility] ([place] Comment on above: Performed By: #### C BC, ADIFF, ANEU, PRO, BMP, GFR ####[place] [address] Creatinine 1.30 mg/dL Normal 0.60-1.40 [facility] ([place] Comment on above: Performed By: #### C BC, ADIFF, ANEU, PRO, BMP, GFR ####[place] [address] Electrolyte Balance 9.0 mEq/L Normal 4.0-15.0 [facility] ([place] Comment on above: Performed By: #### C BC, ADIFF, ANEU, PRO, BMP, GFR ####[place] [address] Glucose mass conc 137 mg/dL High 82-115 [facility] ([place] Comment on above: Performed By: #### C BC, ADIFF, ANEU, PRO, BMP, GFR ####[place] [address] Potassium molar conc 4.2 mmol/L Normal 3.5-5.0 [facility] ([place] Comment on above: Performed By: #### C BC, ADIFF, ANEU, PRO, BMP, GFR ####[place] [address] Sodium 140 mmol/L Normal 136-145 [facility] ([place] Comment on above: Performed By: #### C BC, ADIFF, ANEU, PRO, BMP, GFR ####[place] [address] Urea nitrogen 21.0 mg/dL Normal 8.0-22.0 [facility] ([place] Comment on above: Performed By: #### C BC, ADIFF, ANEU, PRO, BMP, GFR ####[place] [address] CBCon 09-28-2017 Erythrocyte distribution width Auto Ratio (RBC) 14.3 % Normal 11.5-15.5 [facility] ([place] Comment on above: Performed By: #### C BC, ADIFF, ANEU, PRO, BMP, GFR ####[place] [address] Erythrocytes (RBC) 4.70 10 6/mcL Normal 4.50-6.00 [facility] ([place] Comment [place] above: Performed By: #### C BC, ADIFF, ANEU, PRO, BMP, GFR ####[place] [address] Hematocrit (HCT) 39.2 % Low 40.0-52.0 [facility] ([place] Comment on above: Performed By: #### C BC, ADIFF, ANEU, PRO, BMP, GFR ####[place] [address] Hemoglobin mass conc (Bld) 13.3 G/dL Normal 13.0-17.5 [facility] ([place] Comment on above: Performed By: #### C BC, ADIFF, ANEU, PRO, BMP, GFR ####[place] [address] MCH 28.3 pg Normal 27.0-33.0 [facility] ([place] Comment on above: Performed By: #### C BC, ADIFF, ANEU, PRO, BMP, GFR ####[address] [address] MCHC mass conc (RBC) 34.0 G/dL Normal 32.0-36.0 [facility] ([place] Comment on above: Performed By: #### C BC, ADIFF, ANEU, PRO, BMP, GFR ####[place] [address] MCV 83.4 fL Normal 81.0-100.0 [facility] ([place] Comment on above: Performed By: #### C BC, ADIFF, ANEU, PRO, BMP, GFR ####[place] [address] Platelet mean volume (PMV) 7.6 fL Normal 6.4-10.5 [facility] ([place] Comment on above: Performed By: #### C BC, ADIFF, ANEU, PRO, BMP, GFR ####[place] [address] Platelets 181 10 3/mcL Normal 150-450 [facility] ([place] Comment on above: Performed By: #### C BC, ADIFF, ANEU, PRO, BMP, GFR ####[place] [address] WBC (Leukocytes) 5.70 10 3/mcL Normal 4.50-10.80 [facility] ([place] Comment on above: Performed By: #### C BC, ADIFF, ANEU, PRO, BMP, GFR ####[place] [address] Cardiac Catheterization - CV on 09-28-2017 Cardiac Catheterization - CV Normal [facility] ([place] PROon 09-28-2017 INR Coag RelTime (PPP) 1.0 {INR} Normal [facility] ([place] Comment on above: Result Comment: The [employer] (CHEST, 1992, 102:312S-25S)recommended therapeutic range for oral anticoagulant therapy is:LOW RISK: Prophylaxis of venous thrombosis INR: 2.0-3.0 Treatment of pulmonary embolism 2.0-3.0 Prevention of systemic embolism 2.0-3.0HIGH RISK: Mechanical prosthetic valves 2.5-3.5 Performed By: #### C BC, ADIFF, ANEU, PRO, BMP, GFR ####[facility] [place] [address] Prothrombin time (PT) Coag time (PPP) 11.6 s Normal 9.0-14.5 [facility] ([place] Comment on above: Result Comment: Effe ctive 04/25/08, Protime results may be affected by some antibiotics (i.e. Ciprofloxacin, Azithromycin, Bactrim) which may potentiate the action of oral anticoagulants, with further increases in Protime/INR. Performed By: #### C BC, ADIFF, ANEU, PRO, BMP, GFR ####[place] [address] [place] [address] Vital Signs Date Time Vital Sign Value Performing Clinician Doug nicoley 05-29-2025 22:33-0400 Body temperature 97.8 [degF] Dr. Buddy Armijo MD Work Phone: [phone] [place] [address] 05-29-2025 22:33-0400 Diastolic blood pressure 74 mm[Hg] Dr. Buddy Armijo MD Work Phone: [phone] [place] [address] 05-29-2025 22:33-0400 Heart rate 75 /min Dr. Buddy Armijo MD Work Phone: [phone])[phone] [place] [address] 05-29-2025 22:33-0400 Respiratory rate 18 /min Dr. Buddy Armijo MD Work Phone: [phone] [place] [address] 05-29-2025 22:33-0400 SaO2% (BldA) [Mass fraction] 99 % Dr. Buddy Armijo MD Work Phone: [phone])[phone] [place] [address] 05-29-2025 22:33-0400 Systolic blood pressure 130 mm[Hg] Dr. Buddy Armijo MD Work Phone: [phone] [place] [address] 05-29-2025 20:34-0400 Body height 170.[address] Buddy Armijo MD Work Phone: [facility] Encounters Encounter Date Encounter Type Care Provider Facility Start: 05-29-2025 End: 05-29-2025 Emergency department patient visit Dr. Buddy Armijo MD Work Phone: -Emergency Department Work Phone: Start: 05-02-2025 ambulatory JERILYN RAI [facility] Start: 04-21-2025 End: 04-21-2025 Emergency department patient visit [facility] Start: 03-25-2025 ambulatory JERILYN RAI [facility] Start: 03-25-2025 End: 03-25-2025 Emergency department patient visit JERILYN RAI [facility] Start: 02-23-2025 End: 02-23-2025 Telephone encounter Roberto Louis MD Work Phone: Neurology Comment on above: Appointment Start: 02-21-2025 End: 02-21-2025 ambulatory JERILYN RAI [facility] Start: 12-21-2024 End: 12-21-2024 ambulatory JERILYN RAI [facility] Start: 07-11-2024 End: 07-12-2024 ambulatory JERILYN RAI [facility] Start: 06-29-2024 End: 06-30-2024 ambulatory JERILYN RAI [facility] Start: 09-28-2017 End: 09-30-2017 Ambulatory ELVIE HASKINS Facility:A Procedures Date Procedure Procedure Detail Performing Clinician Start: 03-25-2025 Urinalysis BUTROS LAT OUF Comment on above: Result Comment: URIN ALYSIS Performed By: #### 2 [id number] #### [facility],[address] [place] [address] Start: 07-11-2024 Urinalysis BUTROS LAT OUF Comment on above: Result Comment: URIN ALYSIS Performed By: #### 2 [id number] #### [facility],[address] [place] [address] Plan of Treatment Date Care Activity Detail Author Start: 01-22-2026 Diabetes Screening Diabetes Screenin g [facility] Start: 06-12-2025 Influenza vaccination Influenz a Vaccine (Season Ended) [facility] Start: 05-29-2025 [facility] Start: 04-05-2025 End: 04-05-2025 Patient encounter procedure 04/05/2025 1:30 PM EDT Office Visit [facility] [address] [place], [place] [id number] Roberto Louis MD [address] [place], [place] [id number] Parkinson's [facility] Comment on above: Parkinson's Start: 10-12-2024 Advance Directive Discussion Advance Directive Discussion [facility] Start: 06-12-2024 Covid-19 Vaccine ( season) Covid-19 Vaccine ( season) [facility] Start: 2013 RSV Vaccine (1 - 1-d ose 75+ series) RSV Vaccine (1 - 1-dose 75+ series) [facility] Start: 07-12-2006 Pneumococcal Vaccine : 50+ (2 of 2 - PCV) Pneumococcal Vaccine: 50+ (2 of 2 - PCV) [facility] Start: 01-27-1988 Shingrix Vaccine (1 of 2) Shingrix Vaccine (1 of 2) [facility] Start: 1957 Urine microalbumin profile DTaP,Tdap,Td Vaccine (1 - Tdap) [facility] Start: 01-27-1956 Anxiety Screening Anxiety Screening [facility] Start: 01-27-1956 Depression Screening Depression Scre ening [facility] Patient Education ED Constipation (Adult) [facility] Work Phone: Immunizations Immunization Date Immunization Notes Care Provider Fa cility 07-12-2005 pneumococcal polysaccharide vaccine, 23 valent Roberto Louis MD Work Phone: [facility] Payers Date Payer Category Payer Self-pay 2023 Medicare (Managed Care) [employer] [place] [employer] [id number] 2022 Private Health Insurance [id number] 2017 Unknown [id number] 1940 Unknown [id number]. 651 1938 Unknown [id number] [id number]. 65 1938 Unknown [id number] [id number]. 651 1938 Unknown [id number] [id number]. 651 1938 Unknown [id number] [id number]. 651 1938 Unknown [id number] 2.16.840.1.576582.3.579.2. 63 1938 Unknown [id number] 2.16.840.1.258919.3.579.2. 651 1938 Unknown [id number] 2.16.840.1.186219.3.579.2. 63 1938 Unknown [id number] 2.16.840.1.487071.3.579.2. 651 1938 Unknown [id number] [id number]. 63 Unknown [id number] Unknown [id number] [id number]. 462 Social History Date Type Detail Facility Start: 08-28-2011 End: 05-29-2025 Tobacco smoking status NHIS Never smoked tobacco [facility] Start: 08-28-2011 Tobacco use and exposure Smokeless tobacco non-user [facility] Start: 09-30-2012 Alcoholic beverage intake Not Asked [facility] Start: 1940 Sex assigned at Not on file [facility] Gender identity Not on file [facility] in Start: 1940 Sex Assigned At Male W [facility] Discharge summary 05-29-2025 Note Date & Type Note Facility 05-29-2025 Discharge summary [facility] Discharge summary 05-29-2025 Note Date & Type Note Facility 05-29-2025 Discharge summary Note Date/Time May 29, 2025 10:27pm [facility] Medical Records Department [address] [place] [address] Emergency Department Summary 05/29/25 MR#: [id number] Acct: [id number] Name: STEPHANI ELIAS Rep #:[id number] 5 : 1940 85 From: Buddy Armijo MD PCP: Dr. Jerilyn Swanson MD Status:REG ER Location: ED HPI History of Present Illness Chief Complaint: Constipation Detail of Chief Complaint: No bowel movement for 3 to 4 days Informant: patient and family Onset/Context/Timing Onset: Days Context: Sudden Onset Timing: Continuous Quality: Unable to move his bowels for the past 3 to 4 days Location: Complains of rectal pain Current Severity: Mild Maximum Severity: Moderate Worsened by: When he attempts to push out the stool Relieved by: Nothing Associated Symptoms Associated Symptoms: No other symptoms Narrative Narrative: Patient is an 85-year-old male. He presents with rectal pain and unable to havea bowel movement for the past 3 to 4 days. He has no history of partial or small bowel obstruction. He is status post cholecystectomy. He is still passing gas. He denies urologic symptoms. He denies fever or chills. He denies weight loss. He denies night sweats. He does not feel bloated. He has had no nausea or vomiting. Prior similar symptoms: Yes Recent Illness/Hospitalization: No PFSH PFSH Medical History (Updated 05/29/25 @ 22:[address] Buddy Armijo MD) Hyperlipemia BPH (benign prostatic hyperplasia) Allergy/AdvReac Type Severity Reaction Status Date / Time Penicillins Allergy Severe UNKNOWN Verified 05/29/25 20:35 Surgical History (Updated 05/29/25 @ 22:13 by Karen Travis) Hx of cholecystectomy History of open heart surgery Social History (Updated 05/29/25 @ 22:[address] Buddy Armijo MD) Smoking Status: Never smoker substance use type: does not use ROS ROS ED Constitutional Constitutional ED: Denies chills, fever(s), subjective, sweats or weight loss Cardiovascular Cardiovascular: Denies chest pain or palpitations Respiratory/Chest Respiratory/Chest: Denies cough or dyspnea Gastrointestinal Gastrointestinal: Reports constipation and other Details: Rectal pain ; Denies abdominal pain, diarrhea, melena, nausea or vomiting Genitourinary Genitourinary ED: Denies dysuria, hematuria or urinary frequency Musculoskeletal Musculoskeletal: Denies arthralgias or myalgias Integumentary Denies rash Neurologic Neurologic: Reports weakness; Denies paresthesias Psychiatric Psychiatric: Denies anxiety or depression Hematologic/Lymphatic Hematologic/Lymphatic: Reports systems reviewed and no addt'l complaints, exceptas documented EXAM Physical Exam Const Vital Signs: 05/29/25 20:34 Temperature 98.1 F Temperature Source Oral Pulse Rate 98 Respiratory Rate 15 Blood Pressure 158/78 H Blood Pressure Mean 104 Pulse Ox 98 Positive well nourished and well developed General Appearance ED: well developed and NAD HEENT Reports moist mucous membranes HEENT Narrative: Head is atraumatic and normocephalic. Ears normal. Eyes PERRL and EOMs intact bilaterally Neck no lymphadenopathy, supple and no JVD Resp normal respiratory effort and clear to auscultation bilaterally Cardio regular rate, regular rhythm, S1 normal heart sound, S2 normal heart sound and no murmurs GI non-tender and no masses; Negative for non-distended or hepatosplenomegaly GI Narrative: No fissures, fistulas or hemorrhoids on rectal exam. Patient has a fecal impaction. Attempt to digitally disimpact was unsuccessful because the stool isvery soft. Auscultation: hypoactive bowel sounds Palpation: soft Extremity normal to inspection Neuro oriented x3 and CN's II-XII intact bilaterally Sensorium / Orientation: alert Psych Mood & Affect: depressed Skin no rashes or lesions noted, no wounds and No skin turgor normal General Skin Exam: Negative for jaundice MDM MDM MDM Narrative Medical decision making narrative: Since digital disimpaction was unsuccessful. Soapsuds enema was ordered. Nurseinformed he cannot hold the soapsuds enema. After discussion with the other physician was on-call recommended fleets enema. Fleets enema was ordered. Awaiting to see if patient has results. Treatment and Re-Evaluation :: Patient had minimal results after fleets enema. Will discharge to home with instructions to help evacuate the stool from his rectum. Discharge Plan Triage Chief Complaint: Constipation ED Provider: Buddy Armijo Dx/Rx/DC Orders Clinical Impression: Fecal impaction of rectum, Elevated blood pressure reading Instructions: ED Constipation (Adult) Primary Care Provider: Jerilyn Swanson Referrals: Jerilyn Swanson MD [Primary Care Provider] - 1-2 Days if not improving Activity Restrictions/Additional Instructions: 1. In the morning drink 10 ounces of mag citrate. 2. 4 hours after drinking the mag citrate 1 capful of MiraLAX and a full glass of beverage of choice. 3. Repeat 1 capful of MiraLAX every 1-2 hours until you start to have results. Once you have results discontinue the MiraLAX Print Language: German Disposition Disposition: Home, Self Care What to do if you have Problems For any increased pain, shortness of breath, bleeding, nausea or vomiting, chestpain, or any unexpected problems, contact your Primary Care Provider. Call [facility] ([phone]) or report to the closest Emergency Room. Call 911 if necessary. 05/29/252226 <Electronically signed by Buddy Armijo MD> Cosigner Signature (if applicable): CC: Dr. Jerilyn Swanson MD ~ Signed [facility] Work Phone: Hospital Discharge instructions 05-29-2025 Note Date & Type Note Facility 05-29-2025 Hospital Discharg e instructions Additional Instructions 1. In the morning drink 10 ounces of mag citrate. 2. 4 hours after drinking the mag citrate 1 capful of MiraLAX and a full glass of beverage of choice. 3. Repeat 1 capful of MiraLAX every 1-2 hours until you start to have results. Once you have results discontinue the MiraLAX [facility] Work Phone: Telephone encounter Note 02-23-2025 Telephone Encounter - Nela Adkins MA - 02/23/2025 10:13 AM EDT Note Date & Type Note Facility 02-23-2025 Telephone encount er Note Patients son called back and scheduled patient on 04/05/2025 at 1:30 pm. Nela Adkins MA [facility] Note 02-23-2025 Telephone Encounter - Nela Adkins MA - 02/23/2025 10:13 AM EDTTelephone Encounter - Mini Perales - 02/23/2025 8:51 AM EDT Note Date & Type Note Facility 02-23-2025 Miscellaneous Notes Formattin g of this note might be different from the original. Patients son called back and scheduled patient on 04/05/2025 at 1:30 pm. Nela Adkins MA Called patient to schedule an appointment with Dr. Louis from a referral we received [employer] documented in this encounter [facility] Telephone encounter Note 02-23-2025 Telephone Encounter - Mini Perales - 02/23/2025 8:51 AM EDT Note Date & Type Note Facility 02-23-2025 Telephone encount er Note Called patient to schedule an appointment with Dr. Louis from a referral we received [employer] [facility] History and physical note 07-17-2024 Note Date & Type Note Facility 07-17-2024 [facility] HISTORY & PHYSICAL/DISCHARGE SUMMARY NAME ACCOUNT SEX AGE ADMIT DISCHARGE PT MED. RECORD# NUMBER DATE DATE TYPE LENNOX [id number] Radha 84 07/11/24 2 STEPHANI Nguyen [id number] ROOM: [id number] DATE OF : 36 DICTATING PHYSICIAN: Jerilyn Swanson CHIEF COMPLAINT: Increased weakness. HISTORY OF PRESENT ILLNESS: The patient is a pleasant 84-year-old gentleman with complex medical problems including heart failure with preserved ejection fraction, atrial fibrillation, diabetes, and obstructive sleep apnea who initially went to the emergency room on June 29, 2024. He was found to have severe hyponatremia with a sodium of 124 in addition to mildly elevated BNP of 668. He was admitted to a medical surgical floor and was started on IV fluids, and sodium improved to 131, and the patient felt better and he was discharged home on June 30, 2024. The patient presented to the office on July 07, 2024 for evaluation and he was feeling fairly well. He was complaining of feeling slightly more tired than usual. Then, yesterday he presented to the emergency room with significantly increasing weakness and fatigue to the point that he was unable to get up and ambulate. He has poor appetite. He did not have any fever or chills, and laboratories obtained. They showed mildly elevated BUN and creatinine, and the patient was admitted to a medical surgical floor for observation. He was started on IV fluids, and this morning basic metabolic panel was obtained and it was completely normal with normal sodium, potassium, BUN and creatinine, and IV fluids were discontinued. This morning after he woke up, he started having chest pain, midsternal chest pressure radiating to the right side of the jaw. No shortness of breath. No palpitations, and no nausea or vomiting. He was given sublingual nitroglycerin, which completely resolved his symptoms. When I saw the patient earlier this morning, he was feeling comfortable. I scheduled the patient to have a Lexiscan nuclear stress test, and results discussed with Dr. Doll, and it showed inferolateral infarct with partial reversibility. He also had an echocardiogram, which showed an ejection fraction of 50 to 55% with normal wall motion, and the left atrium moderately enlarged. He also has moderate centrally directed mitral valve regurgitation and mild aortic stenosis with mild tricuspid regurgitation, and estimated right ventricular systolic pressure of 48 mmHg. PAST MEDICAL HISTORY: (1) Heart failure with preserved ejection fraction. (2) Recent history for acute kidney injury, resolved with IV fluids. (3) Anemia with H&H of 11.8 and 36.4 and mainly iron-deficiency with total iron of 61 (reference range 65 to 175). (4) Atrial fibrillation on chronic anticoagulation therapy with Eliquis. (5) BPH. (6) Coronary artery disease. The patient is followed by Dr. Haskins. (7) Diabetes mellitus type 2. (8) Obstructive sleep apnea with a significant component of central Page 1 of 4 STEPHANI ELISA History Physical/Discharge Summary STEPHANI ELIAS :1940 sleep apnea. The patient is on CPAP. (9) GERD. (10) Hypertension. (11) Hyperlipidemia. (12) Stage III chronic kidney disease. PAST SURGICAL HISTORY: (1) Bilateral cataract extraction in 2017. (2) Cholecystectomy in 2004. 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 ALLERGIES: The patient is intolerant to antihistamines, and he is allergic to penicillin that gives him hives. FAMILY HISTORY: Noncontributory for this patient who is 84 years old. He has a brother with carotid artery disease and a history of bypass. His mother at age 101. SOCIAL HISTORY: The patient is a . He has three children, one and two living. He never smoked. He does not drink any alcohol. REVIEW OF SYSTEMS: The patient denies any dizziness, lightheadedness, or headaches. He denies any shortness of breath except for intermittent dyspnea on exertion. He complained of chest discomfort this morning, mainly midsternal pressure, radiates to the right side of the jaw, resolved with sublingual nitroglycerin one tablet. He denies any or GI symptoms. He came in with significant weakness and fatigue that improved with IV fluids, especially when the renal function was corrected. He denies any lower extremity edema. The rest of the review of systems were reviewed with the patient, and they were negative. PHYSICAL EXAMINATION GENERAL APPEARANCE: The patient was lying down in bed comfortably in no acute distress, well-developed, well-nourished. VITAL SIGNS: Blood pressure 127/73, heart rate 88, respiratory rate 16, temperature 98.6, oxygen saturation ranged between 90 to 94% on room air. HEENT: Unremarkable. NECK: Neck is supple. No nodes. No masses. No JVD. No carotid bruit. No thyroid enlargement. LUNGS: Symmetrical, equal lung expansion, clear to auscultat (more content not included)... [facility] Evaluation note Note Date & Type Note Facility Evaluation note No assessment information availa ble [facility] Work Phone: Reason for referral (narrative) Note Date & Type Note Facility Reason for referral (narrative) No reason for referral information available [facility] Work Phone: Summary Purpose Family History No Family History Records FoundNo Family History Records FoundNo Family History Records FoundNo Family History Records FoundNo Family History Records FoundNo Family History Records Found Advance Directives No Advanced Directives Records Found Advance Directive Response Recorded Date/ Time Do you have a Healthcare Power of Bander [employer]? Yes May 29, 2025 10:11pm Chief Complaint and Reason for Visit Chief Complaint Admit Date CONSTIPATION May 29, 2025 8: 32pm Additional Source Comments (unrecognized sect ion and content) No Status Records FoundNo Status Records FoundNo Status Records FoundNo Status Records FoundNo Status Records FoundNo Status Records Found INFORMATION SOURCE (unrecogn ized section and content) DATE CREATED AUTHOR 04/06/2018 [facility] ([place]) DATE CREATED AUTHOR AUTHOR'S ORGANIZ ATION 11/27/2021 [facility] DATE CREATED AUTHOR AUTHOR'S ORGANIZ ATION 09/24/2024 [facility] DATE CREATED AUTHOR AUTHOR'S ORGANIZ ATION 02/24/2025 [facility] DATE CREATED AUTHOR AUTHOR'S ORGANIZ ATION 05/31/2025 [facility] DATE CREATED AUTHOR AUTHOR'S ORGANIZ ATION 05/31/2025 [facility] Source Comments (unrecognize d section and content) In the event this informatio n is protected by the Federal Confidentiality of Alcohol and Drug Abuse Patient Records regulations: The Federal rules restrict any use of the information to criminally investigate or prosecute any alcohol or drug abuse patient.[facility] Reason for Visit (unrecogniz ed section and content) Reason Comments Appointment Care Teams (unrecognized sec tion and content) Team Status: Active Member Role/Relationship Status Dates Dr. Jerilyn Swanson MD Primary Care Provider Active Team Status: Inactive Member Role/Relationship Status Dates Dr. Buddy Armijo MD Emergency Provider Active Sta rt: May 29, 2025 End: May 29, 2025 Dr. Jerilyn Swanson MD Primary Care Provider Active Start: May 29, 2025 End: May 29, 2025 Goals (unrecognized section and content) Goals may be documented in a n alternate section FOR RECORDS PERTAINING TO PATIENTS WHO ARE OR HAVE BEEN ENROLLED IN A CHEMICAL DEPENDENCY/SUBSTANCEABUSE PROGRAM, SOME INFORMATION MAY BE OMITTED. This clinical summary was aggregated from multiple sources. Caution should be exercised in using it in the provision of clinical care. This summary normalizes information from multiple sources, and as a consequence, information in this document may materially change the coding, format and clinical context of patient data. In addition, data may be omitted in some cases. CLINICAL DECISIONS SHOULD BE BASED ON THE PRIMARY CLINICAL RECORDS. [facility] [employer] [facility]. provides no warranty or guarantee of the accuracy or completeness of information in this document.
[2025-06-03 20:53] LABS: Glucose, Dipstick Normal (Normal); Ketone-Dipstick Negative (Negative); Leukocyte Esterase-Dipstick Negative /ul (Negative); Nitrite-Dipstick Negative (Negative); Occult Blood-Urine 150 /ul (Negative); Protein-Dipstick 15 mg/dl (Negative); Specific Gravity, Urine 1.010 (1.002-1.030); Urine Bilirubin Dipstick Negative (Negative)
--- NOTE | 2025-06-03 21:03 | CM.ED ---
Date of referral: 06/03/25 Reason for referral: Advanced Care Directives (ACD's) not on file. Referred by: Social Work Identification Patient provided consent for visit. Ink Jet Operator requested patient to bring in a copy of ACD's which patient and his son agreed to. Erin Munoz, ENVIRONMENTAL EDUCATOR, HEMODIALYSIS RN
[2025-06-03 21:04] LABS: Anion Gap 13 (5-15); BUN 22 mg/dL (4-19); BUN/Creat Ratio 18.5 RATIO (10-20); Calcium,Total 9.5 mg/dL (7.6-11.0); Carbon Dioxide 22.3 mmol/L (21.0-32.0); Chloride 99 mmol/L (98-108); Estimated Creatinine Clearance 41.23 ml/min (50-250); Glucose 116 mg/dL (70-99); Potassium 4.7 mmol/L (3.3-5.1)
[2025-06-03 21:06] LABS: Color, Urine Straw (Yellow)
[2025-06-03 21:09] LABS: Red Blood Cells-Urine 0-5 SEEN /hpf (0-5); Squamous Epithelial Cells - UA 0-5 SEEN /hpf (0-5)
[2025-06-03 21:50] VITALS: BP 166/70; PULSE 53; RESP 17; TEMP 36.1; O2SAT 100
== END 2025-06-03 21:52 | disposition home or self-care (01) ==
PROVIDERS: Emergency Provider Emergency Medicine; PCP Internal Medicine; Visit Provider Emergency Medicine
DX: R53.1 Weakness (principal); I48.91 Unspecified atrial fibrillation; E78.5 Hyperlipidemia, unspecified; Z79.01 Long term (current) use of anticoagulants; Z79.82 Long term (current) use of aspirin; Z79.899 Other long term (current) drug therapy; W19.XXXA Unspecified fall, initial encounter; Z91.81 History of falling; R29.6 Repeated falls
CPT/HCPCS: 71045; 80048; 81001; 85025; 93005; 96360; 99284; A4216